=== PATIENT | female | born 1945 | race Caucasian/White ===

== ENCOUNTER 2016-02-22 22:14 | Emergency (ER) | payer OTHER ==
[2016-02-23] MEDS ORDERED: ACETAMINOPH W/CODEINE #3 TAB UD As Ordered ONE ×2 (00:44→01:36)
--- NOTE | 2016-02-23 01:43 | EDDOCDS ---
Nurse's Notes [facility] Name: Nataliya Davis Age: 70 yrs Sex: Female : 1945 Arrival Date: 02/22/2016 Time: 22:14 Bed I4 / M4 Private MD: Sherwin Bermudez A. Diagnosis: Low back pain Presentation: 02/21 22:23 Presenting complaint: Patient states: back pain - no relief tonight with her prescribed pml meds. no new injury - reports awaiting MRI and in PT at ortho. Acute neurological deficits are not present. Mechanism of Injury: No Mechanism of Injury. Adult Sepsis Screening: The patient does not have new or worsening altered mentation. Patient's respiratory rate is less than 22. Patient has a qSOFA score of. Suicide/Homicide risk assessment- the patient denies having any suicidal and/or homicidal ideations and does not present with any other emotional, behavioral or mental health complaints. Status: Patient is not a auto service mechanic or dependent. Transition of care: patient was not received from another setting of care. 22:23 Method Of Arrival: Walkin/Carried/Asstd [facility] 22:31 Adult Sepsis Screening: Systolic blood pressure is less than or equal to 100 (1 point). pml Patient has a qSOFA score of 1- Negative Sepsis Screen. 22:31 Acuity: ADAIR Level 4 pml Triage Assessment: 22:28 General: Appears in no apparent distress, comfortable, Behavior is appropriate for age, pml cooperative. Pain: Pain currently is 0 out of 10 on a pain scale. At worst was 10 out of 10 on a pain scale. Quality of pain is described as spasms. Musculoskeletal: Circulation, motion, and sensation intact. Historical: - Allergies: PENICILLINS; - Home Meds: 1. Klor-Con 20 mEq oral pack daily 2. Vitamin D3 5,000 unit oral tab daily 3. levothyroxine 125 mcg oral tab 1 tab once daily 4. Lasix 40 mg oral tab 1 tab once daily 5. methotrexate sodium 2.5 mg oral tab 2 tabs Monday and 3 tabs Monday 6. folic acid 1 mg oral tab once daily 7. allopurinol 300 mg oral tab 0.5 tab once daily 8. verapamil 240 mg oral C24P 1 cap once daily 9. lisinopril 20 mg oral tab 1 tab once daily 10. tizanidine 4 mg oral cap nightly 11. tramadol 50 mg Oral tab 1 tab every 4-6 hours - PMHx: Gout; Hypertension; Hypothyroidism; Rheumatoid Arthritis; - PSHx: Hysterectomy; Nephrectomy- Left; - Social history: Smoking status: Patient states was never smoker of tobacco. No barriers to communication noted, The patient speaks fluent Kazakh, Speaks appropriately for age. - Family history: Not pertinent. - : The pt / caregiver states he / she is not on anticoagulants. Home medication list is obtained from the patient. - Exposure Risk Screening:: None identified. Screenin/17 01:41 Screening information is obtained from the patient. Fall risk: At risk due to age, gait jmb disturbance. Assistance ADL's: requires no assistance with activities of daily living. Abuse/DV Screen: The patient / caregiver reports he/she is: not in a situation that causes fear, pain or injury. Nutritional screening: No deficits noted. Advance Directives: Currently, there is no health care proxy. There is no active DNR order. There is no living will. There is no Power of Chute Worker. home support is adequate. Assessment: 01:41 General: Patient instructed on discharge instructions. Patient asked if there were any jmb questions regarding discharge, patient stated no. Patient signed discharge instructions. Patient discharged in stable condition. . Vital Signs: 02/21 22:16 BP 86 / 46; Pulse 59; Resp 18 S; Temp 97.3(O); Pulse Ox 99% on R/A; Weight 90.72 kg gr2 (R); Height 5 ft. 4 in. (162.56 cm) (R); Pain 8/10; 22:27 BP 100 / 59 RA Sitting (man/reg); ar3 02/22 00:48 Pain 0/10; cp1 01:37 BP 108 / 55; Pulse 65; Resp 18; Temp 98.0(TE); Pulse Ox 98% on R/A; Pain 0/10; kb5 02/21 22:16 Body Mass Index 34.33 (90.72 kg, 162.56 cm) gr2 Vitals: 02/21 22:16 Log In Time: February 22, 2016 at 22:16. RN notified that patient meets Red Flag gr2 criteria. ED Course: 22:16 Patient visited by Dyoln Bardales. gr2 22:16 Sherwin Bermudez is Private Physician. gr2 22:16 Patient moved to Waiting gr2 22:24 Patient visited by Dylon Bardales. gr2 22:24 Patient moved to Pre RCE gr2 22:27 Patient visited by Charlotte Rod PCA. ar3 22:29 Patient visited by Loraine Nguyen RN. pml 22:31 Triage Initiated pml 02/22 00:10 Patient visited by Aracely Lackey LPN. cp1 00:10 Patient moved to I4 / M4 cp1 00:35 Cam Roa RPA-C is PHCP. ck7 00:35 Brice Mackenzie DO is Attending Physician. ck7 00:35 Patient visited by Cam Roa RPA-C. ck7 01:09 Patient visited by Cam Roa RPA-C. ck7 01:32 Sherwin Bermudez is Referral Physician. ck7 01:39 Patient visited by Madhu Nascimento PCA. kb5 01:41 The patient / caregiver is instructed regarding the plan of care and ED course. jmb 01:41 No IV's were initiated during this patient's visit. No procedures done that require jmb assistance. Administered Medications: 00:48 Drug: Acetaminophen-Codeine 2 tabs [acetaminophen 300 mg-codeine 30 mg tablet (2 tabs)] cp1 Route: PO; 01:41 Drug: Acetaminophen-Codeine, 4 pack- 1 packets [acetaminophen 300 mg-codeine 30 mg jmb tablet (1 tabs)] {Co-Signature: cp1 (Aracely Lackey LPN).} Route: PO; Order Results: There are currently no results for this order. Outcome: 01:32 Discharge ordered by Provider. ck7 01:41 Discharge Assessment: Patient awake, alert and oriented x 3. No cognitive and/or jmb functional deficits noted. Patient verbalized understanding of disposition instructions. Patient awake and alert. obeys commands, Oriented to person, place and time. Patient verbalized understanding of disposition instructions. Patient has no functional deficits. patient administered narcotics - yes. Pt provided with safe discharge. The following High Risk Discharge criteria are identified: None. Discharged to home ambulatory, with family. Condition: stable. Discharge instructions given to patient, Instructed on discharge instructions, follow up and referral plans. medication usage, Demonstrated understanding of instructions, medications, Pt was receptive of discharge instructions/ teaching. Prescriptions given X 1. No special radiology studies were completed. Property sent home with patient. 01:43 Patient left the ED. shayna Signatures: Madhu Nascimento, COMMUNICATIONS CONSULTANT COMMUNICATIONS CONSULTANT kb5 Charlotte Rod, COMMUNICATIONS CONSULTANT COMMUNICATIONS CONSULTANT ar3 Aracely Lackey LPN LPN cp1 Loraine Nguyen RN RN pml Kwaczala, Christopher, RPA-C RPA-Cck7 Dylon Bardales gr2 Moody Marino RN RN jmb Cheryl Perkins LPN cp1 MTDD
--- NOTE | 2016-02-23 01:43 | EDDOCDS ---
Physician Documentation [facility] Name: Nataliya Davis Age: 70 yrs Sex: Female : 1945 Arrival Date: 02/22/2016 Time: 22:14 Bed I4 / M4 Private MD: Sherwin Bermudez A. Disposition: 02/23/16 01:32 Discharged to Home/Self Care. Impression: Low back pain. - Condition is Stable. - Discharge Instructions: Back Pain, Adult. - Prescriptions for Tylenol- Codeine #3 300-30 mg Oral Tablet - take 2 tablets by ORAL route every 6 hours As needed MDD: 4 tabs; 10 tablet. - Medication Reconciliation, Local Pharmacy Hours form. - Follow up: Sherwin Bermudez; When: Tomorrow; Reason: Recheck today's complaints, Continuance of care. - Problem is new. - Symptoms have improved. - Notes: DO NOT TAKE TYLENOL WITH CODIENE WHILE USING TRAMADOL, USE ONE OR THE OTHER, FOLLOW UP WITH YOUR DOCTOR TOMORROW Historical: - Allergies: PENICILLINS; - Home Meds: 1. Klor-Con 20 mEq oral pack daily 2. Vitamin D3 5,000 unit oral tab daily 3. levothyroxine 125 mcg oral tab 1 tab once daily 4. Lasix 40 mg oral tab 1 tab once daily 5. methotrexate sodium 2.5 mg oral tab 2 tabs Monday and 3 tabs Monday 6. folic acid 1 mg oral tab once daily 7. allopurinol 300 mg oral tab 0.5 tab once daily 8. verapamil 240 mg oral C24P 1 cap once daily 9. lisinopril 20 mg oral tab 1 tab once daily 10. tizanidine 4 mg oral cap nightly 11. tramadol 50 mg Oral tab 1 tab every 4-6 hours - PMHx: Gout; Hypertension; Hypothyroidism; Rheumatoid Arthritis; - PSHx: Hysterectomy; Nephrectomy- Left; - Social history: Smoking status: Patient states was never smoker of tobacco. No barriers to communication noted, The patient speaks fluent Tajik, Speaks appropriately for age. - Family history: Not pertinent. - : The pt / caregiver states he / she is not on anticoagulants. Home medication list is obtained from the patient. - Exposure Risk Screening:: None identified. Vital Signs: 02/21 22:16 BP 86 / 46; Pulse 59; Resp 18 S; Temp 97.3(O); Pulse Ox 99% on R/A; Weight 90.72 kg / gr2 200 lbs (R); Height 5 ft. 4 in. (162.56 cm) (R); Pain 8/10; 22:27 BP 100 / 59 RA Sitting (man/reg); ar3 02/22 00:48 Pain 0/10; cp1 01:37 BP 108 / 55; Pulse 65; Resp 18; Temp 98.0(TE); Pulse Ox 98% on R/A; Pain 0/10; kb5 02/21 22:16 Body Mass Index 34.33 (90.72 kg, 162.56 cm) gr2 MDM: 00:41 Acetaminophen-Codeine 300 mg-30 mg 2 tabs PO once ordered. ck7 00:48 Financial registration complete. hs2 01:33 Acetaminophen-Codeine, 4 pack- 300 mg-30 mg 1 packets PO once; Dispense with patient. ck7 Take per package instructions. ordered. Administered Medications: 00:48 Drug: Acetaminophen-Codeine 2 tabs [acetaminophen 300 mg-codeine 30 mg tablet (2 tabs)] cp1 Route: PO; 01:41 Drug: Acetaminophen-Codeine, 4 pack- 1 packets [acetaminophen 300 mg-codeine 30 mg jmb tablet (1 tabs)] {Co-Signature: cp1 (Aracely Lackey WELL BLOWER).} Route: PO; Signatures: Loraine Nguyen,Cam Sandoval RN, RPA-C RPA-Cck7 Moody Marino RN RN jmb Stanton, Hillary, Reg Reg hs2 Lackey Aracely WELL BLOWER cp1 Aracely Lackey WELL BLOWER cp1 MTDD
--- NOTE | 2016-02-25 02:44 | EDDOCDS ---
Physician Documentation [facility] Name: Nataliya Davis Age: 70 yrs Sex: Female : 1945 Arrival Date: 02/22/2016 Time: 22:14 Bed I4 / M4 Private MD: Sherwin Bermudez A. Disposition: 02/23/16 01:32 Discharged to Home/Self Care. Impression: Low back pain. - Condition is Stable. - Discharge Instructions: Back Pain, Adult. - Prescriptions for Tylenol- Codeine #3 300-30 mg Oral Tablet - take 2 tablets by ORAL route every 6 hours As needed MDD: 4 tabs; 10 tablet. - Medication Reconciliation, Local Pharmacy Hours form. - Follow up: Sherwin Bermudez; When: Tomorrow; Reason: Recheck today's complaints, Continuance of care. - Problem is new. - Symptoms have improved. - Notes: DO NOT TAKE TYLENOL WITH CODIENE WHILE USING TRAMADOL, USE ONE OR THE OTHER, FOLLOW UP WITH YOUR DOCTOR TOMORROW Historical: - Allergies: PENICILLINS; - Home Meds: 1. Klor-Con 20 mEq oral pack daily 2. Vitamin D3 5,000 unit oral tab daily 3. levothyroxine 125 mcg oral tab 1 tab once daily 4. Lasix 40 mg oral tab 1 tab once daily 5. methotrexate sodium 2.5 mg oral tab 2 tabs Monday and 3 tabs Monday 6. folic acid 1 mg oral tab once daily 7. allopurinol 300 mg oral tab 0.5 tab once daily 8. verapamil 240 mg oral C24P 1 cap once daily 9. lisinopril 20 mg oral tab 1 tab once daily 10. tizanidine 4 mg oral cap nightly 11. tramadol 50 mg Oral tab 1 tab every 4-6 hours - PMHx: Gout; Hypertension; Hypothyroidism; Rheumatoid Arthritis; - PSHx: Hysterectomy; Nephrectomy- Left; - Social history: Smoking status: Patient states was never smoker of tobacco. No barriers to communication noted, The patient speaks fluent Romanian, Speaks appropriately for age. - Family history: Not pertinent. - : The pt / caregiver states he / she is not on anticoagulants. Home medication list is obtained from the patient. - Exposure Risk Screening:: None identified. Vital Signs: 02/21 22:16 BP 86 / 46; Pulse 59; Resp 18 S; Temp 97.3(O); Pulse Ox 99% on R/A; Weight 90.72 kg / gr2 200 lbs (R); Height 5 ft. 4 in. (162.56 cm) (R); Pain 8/10; 22:27 BP 100 / 59 RA Sitting (man/reg); ar3 02/22 00:48 Pain 0/10; cp1 01:37 BP 108 / 55; Pulse 65; Resp 18; Temp 98.0(TE); Pulse Ox 98% on R/A; Pain 0/10; kb5 02/21 22:16 Body Mass Index 34.33 (90.72 kg, 162.56 cm) gr2 MDM: 00:41 Acetaminophen-Codeine 300 mg-30 mg 2 tabs PO once ordered. ck7 00:48 Financial registration complete. hs2 01:33 Acetaminophen-Codeine, 4 pack- 300 mg-30 mg 1 packets PO once; Dispense with patient. ck7 Take per package instructions. ordered. 04:31 [facility] Payment Agreement was scanned into [employer] and attached to record. hs2 10:58 T-Sheet-- Draft Copy was scanned into [employer] and attached to record. gb Administered Medications: 00:48 Drug: Acetaminophen-Codeine 2 tabs [acetaminophen 300 mg-codeine 30 mg tablet (2 tabs)] cp1 Route: PO; 01:41 Drug: Acetaminophen-Codeine, 4 pack- 1 packets [acetaminophen 300 mg-codeine 30 mg jmb tablet (1 tabs)] {Co-Signature: cp1 (Aracely Lackey LPN).} Route: PO; Signatures: Ania Giron, Reg Reg gb Loraine Nguyen,RN Cam Sandoval, RPA-C RPA-Cck7 Moody Marino RN RN jmb Stanton, Hillary, Reg Reg hs2 Aracely Lackey LPN cp1 Aracely Lackey LPN cp1 The chart was reviewed and I authenticate all verbal orders and agree with the evaluation and treatment provided.Attachments: 04:31 [facility] Payment Agreement hs2 10:58 T-Sheet-- Draft Copy gb Chart Complete MTDD
--- NOTE | 2016-02-25 02:44 | EDDOCDS ---
Physician Documentation [facility] Name: Nataliya Davis Age: 70 yrs Sex: Female : 1945 Arrival Date: 02/22/2016 Time: 22:14 Bed I4 / M4 Private MD: Sherwin Bermudez A. Disposition: 02/23/16 01:32 Discharged to Home/Self Care. Impression: Low back pain. - Condition is Stable. - Discharge Instructions: Back Pain, Adult. - Prescriptions for Tylenol- Codeine #3 300-30 mg Oral Tablet - take 2 tablets by ORAL route every 6 hours As needed MDD: 4 tabs; 10 tablet. - Medication Reconciliation, Local Pharmacy Hours form. - Follow up: Sherwin Bermudez; When: Tomorrow; Reason: Recheck today's complaints, Continuance of care. - Problem is new. - Symptoms have improved. - Notes: DO NOT TAKE TYLENOL WITH CODIENE WHILE USING TRAMADOL, USE ONE OR THE OTHER, FOLLOW UP WITH YOUR DOCTOR TOMORROW Historical: - Allergies: PENICILLINS; - Home Meds: 1. Klor-Con 20 mEq oral pack daily 2. Vitamin D3 5,000 unit oral tab daily 3. levothyroxine 125 mcg oral tab 1 tab once daily 4. Lasix 40 mg oral tab 1 tab once daily 5. methotrexate sodium 2.5 mg oral tab 2 tabs Monday and 3 tabs Monday 6. folic acid 1 mg oral tab once daily 7. allopurinol 300 mg oral tab 0.5 tab once daily 8. verapamil 240 mg oral C24P 1 cap once daily 9. lisinopril 20 mg oral tab 1 tab once daily 10. tizanidine 4 mg oral cap nightly 11. tramadol 50 mg Oral tab 1 tab every 4-6 hours - PMHx: Gout; Hypertension; Hypothyroidism; Rheumatoid Arthritis; - PSHx: Hysterectomy; Nephrectomy- Left; - Social history: Smoking status: Patient states was never smoker of tobacco. No barriers to communication noted, The patient speaks fluent Amharic, Speaks appropriately for age. - Family history: Not pertinent. - : The pt / caregiver states he / she is not on anticoagulants. Home medication list is obtained from the patient. - Exposure Risk Screening:: None identified. Vital Signs: 02/21 22:16 BP 86 / 46; Pulse 59; Resp 18 S; Temp 97.3(O); Pulse Ox 99% on R/A; Weight 90.72 kg / gr2 200 lbs (R); Height 5 ft. 4 in. (162.56 cm) (R); Pain 8/10; 22:27 BP 100 / 59 RA Sitting (man/reg); ar3 02/22 00:48 Pain 0/10; cp1 01:37 BP 108 / 55; Pulse 65; Resp 18; Temp 98.0(TE); Pulse Ox 98% on R/A; Pain 0/10; kb5 02/21 22:16 Body Mass Index 34.33 (90.72 kg, 162.56 cm) gr2 MDM: 00:41 Acetaminophen-Codeine 300 mg-30 mg 2 tabs PO once ordered. ck7 00:48 Financial registration complete. hs2 01:33 Acetaminophen-Codeine, 4 pack- 300 mg-30 mg 1 packets PO once; Dispense with patient. ck7 Take per package instructions. ordered. 04:31 [facility] Payment Agreement was scanned into [employer] and attached to record. hs2 10:58 T-Sheet-- Draft Copy was scanned into [employer] and attached to record. gb Administered Medications: 00:48 Drug: Acetaminophen-Codeine 2 tabs [acetaminophen 300 mg-codeine 30 mg tablet (2 tabs)] cp1 Route: PO; 01:41 Drug: Acetaminophen-Codeine, 4 pack- 1 packets [acetaminophen 300 mg-codeine 30 mg jmb tablet (1 tabs)] {Co-Signature: cp1 (Aracely Lackey LPN).} Route: PO; Signatures: Ania Giron, Reg Reg gb Loraine Nguyen,RN Cam Sandoval, RPA-C RPA-Cck7 Moody Marino RN RN jmb Stanton, Hillary, Reg Reg hs2 Aracely Lackey LPN cp1 Aracely Lackey LPN cp1 The chart was reviewed and I authenticate all verbal orders and agree with the evaluation and treatment provided.Attachments: 04:31 [facility] Payment Agreement hs2 10:58 T-Sheet-- Draft Copy gb Chart Complete MTDD
--- NOTE | 2016-02-25 02:44 | EDDOCDS ---
Nurse's Notes [facility] Name: Nataliya Davis Age: 70 yrs Sex: Female : 1945 Arrival Date: 02/22/2016 Time: 22:14 Bed I4 / M4 Private MD: Sherwin Bermudez A. Diagnosis: Low back pain Presentation: 02/21 22:23 Presenting complaint: Patient states: back pain - no relief tonight with her prescribed pml meds. no new injury - reports awaiting MRI and in PT at ortho. Acute neurological deficits are not present. Mechanism of Injury: No Mechanism of Injury. Adult Sepsis Screening: The patient does not have new or worsening altered mentation. Patient's respiratory rate is less than 22. Patient has a qSOFA score of. Suicide/Homicide risk assessment- the patient denies having any suicidal and/or homicidal ideations and does not present with any other emotional, behavioral or mental health complaints. Status: Patient is not a technical service engineer or dependent. Transition of care: patient was not received from another setting of care. 22:23 Method Of Arrival: Walkin/Carried/Asstd [facility] 22:31 Adult Sepsis Screening: Systolic blood pressure is less than or equal to 100 (1 point). pml Patient has a qSOFA score of 1- Negative Sepsis Screen. 22:31 Acuity: ADAIR Level 4 pml Triage Assessment: 22:28 General: Appears in no apparent distress, comfortable, Behavior is appropriate for age, pml cooperative. Pain: Pain currently is 0 out of 10 on a pain scale. At worst was 10 out of 10 on a pain scale. Quality of pain is described as spasms. Musculoskeletal: Circulation, motion, and sensation intact. Historical: - Allergies: PENICILLINS; - Home Meds: 1. Klor-Con 20 mEq oral pack daily 2. Vitamin D3 5,000 unit oral tab daily 3. levothyroxine 125 mcg oral tab 1 tab once daily 4. Lasix 40 mg oral tab 1 tab once daily 5. methotrexate sodium 2.5 mg oral tab 2 tabs Monday and 3 tabs Monday 6. folic acid 1 mg oral tab once daily 7. allopurinol 300 mg oral tab 0.5 tab once daily 8. verapamil 240 mg oral C24P 1 cap once daily 9. lisinopril 20 mg oral tab 1 tab once daily 10. tizanidine 4 mg oral cap nightly 11. tramadol 50 mg Oral tab 1 tab every 4-6 hours - PMHx: Gout; Hypertension; Hypothyroidism; Rheumatoid Arthritis; - PSHx: Hysterectomy; Nephrectomy- Left; - Social history: Smoking status: Patient states was never smoker of tobacco. No barriers to communication noted, The patient speaks fluent Japanese, Speaks appropriately for age. - Family history: Not pertinent. - : The pt / caregiver states he / she is not on anticoagulants. Home medication list is obtained from the patient. - Exposure Risk Screening:: None identified. Screenin/17 01:41 Screening information is obtained from the patient. Fall risk: At risk due to age, gait jmb disturbance. Assistance ADL's: requires no assistance with activities of daily living. Abuse/DV Screen: The patient / caregiver reports he/she is: not in a situation that causes fear, pain or injury. Nutritional screening: No deficits noted. Advance Directives: Currently, there is no health care proxy. There is no active DNR order. There is no living will. There is no Power of Service Plumber. home support is adequate. Assessment: 01:41 General: Patient instructed on discharge instructions. Patient asked if there were any jmb questions regarding discharge, patient stated no. Patient signed discharge instructions. Patient discharged in stable condition. . Vital Signs: 02/21 22:16 BP 86 / 46; Pulse 59; Resp 18 S; Temp 97.3(O); Pulse Ox 99% on R/A; Weight 90.72 kg gr2 (R); Height 5 ft. 4 in. (162.56 cm) (R); Pain 8/10; 22:27 BP 100 / 59 RA Sitting (man/reg); ar3 02/22 00:48 Pain 0/10; cp1 01:37 BP 108 / 55; Pulse 65; Resp 18; Temp 98.0(TE); Pulse Ox 98% on R/A; Pain 0/10; kb5 02/21 22:16 Body Mass Index 34.33 (90.72 kg, 162.56 cm) gr2 Vitals: 02/21 22:16 Log In Time: February 22, 2016 at 22:16. RN notified that patient meets Red Flag gr2 criteria. ED Course: 22:16 Patient visited by Dylon Bardales. gr2 22:16 Sherwin Bermudez is Private Physician. gr2 22:16 Patient moved to Waiting gr2 22:24 Patient visited by Dylon Bardales. gr2 22:24 Patient moved to Pre RCE gr2 22:27 Patient visited by Charlotte Rod PCA. ar3 22:29 Patient visited by Loraine Nguyen RN. pml 22:31 Triage Initiated pml 02/22 00:10 Patient visited by Aracely Lackey LPN. cp1 00:10 Patient moved to I4 / M4 cp1 00:35 Cam Roa RPA-C is PHCP. ck7 00:35 Brice Mackenzie DO is Attending Physician. ck7 00:35 Patient visited by Cam Roa RPA-C. ck7 01:09 Patient visited by Cam Roa RPA-C. ck7 01:32 Sherwin Bermudez is Referral Physician. ck7 01:39 Patient visited by Madhu Nascimento PCA. kb5 01:41 The patient / caregiver is instructed regarding the plan of care and ED course. jmb 01:41 No IV's were initiated during this patient's visit. No procedures done that require jmb assistance. 04:31 [facility] Payment Agreement was scanned into [employer] and attached to record. hs2 10:58 T-Sheet-- Draft Copy was scanned into [employer] and attached to record. gb Administered Medications: 00:48 Drug: Acetaminophen-Codeine 2 tabs [acetaminophen 300 mg-codeine 30 mg tablet (2 tabs)] cp1 Route: PO; 01:41 Drug: Acetaminophen-Codeine, 4 pack- 1 packets [acetaminophen 300 mg-codeine 30 mg jmb tablet (1 tabs)] {Co-Signature: cp1 (Aracely Lackey LPN).} Route: PO; Order Results: There are currently no results for this order. Outcome: 01:32 Discharge ordered by Provider. ck7 01:41 Discharge Assessment: Patient awake, alert and oriented x 3. No cognitive and/or jmb functional deficits noted. Patient verbalized understanding of disposition instructions. Patient awake and alert. obeys commands, Oriented to person, place and time. Patient verbalized understanding of disposition instructions. Patient has no functional deficits. patient administered narcotics - yes. Pt provided with safe discharge. The following High Risk Discharge criteria are identified: None. Discharged to home ambulatory, with family. Condition: stable. Discharge instructions given to patient, Instructed on discharge instructions, follow up and referral plans. medication usage, Demonstrated understanding of instructions, medications, Pt was receptive of discharge instructions/ teaching. Prescriptions given X 1. No special radiology studies were completed. Property sent home with patient. 01:43 Patient left the ED. shayna Signatures: Ania Giron, Reg Reg gb Pily, Madhu, PRINT OPERATOR PRINT OPERATOR kb5 Charlotte Rod, PRINT OPERATOR PRINT OPERATOR ar3 Aracely Lackey LPN LPN cp1 Loraine Nguyen RN RN pml Kwaczala, Christopher, RPA-C RPA-Cck7 Dylon Bardales gr2 Moody Marino RN RN jmb Stanton, Hillary, Reg Reg hs2 Aracely Lackey LPN cp1 Chart Complete MTDD
== END 2016-02-23 01:43 | disposition home or self-care (01) ==
LOC: M ED 22:14
DX: M54.5 Low back pain (principal); M06.9 Rheumatoid arthritis, unspecified; I10 Essential (primary) hypertension; M10.9 Gout, unspecified; E03.9 Hypothyroidism, unspecified; Z90.89 Acquired absence of other organs; Z90.5 Acquired absence of kidney; Z79.899 Other long term (current) drug therapy; Z88.0 Allergy status to penicillin

== ENCOUNTER → 2016-05-13 | Outpatient (CLI) | payer OTHER ==
[2016-05-13 16:38] LABS: INR 1.03
== END ==
LOC: M LAB 15:23
PROVIDERS: ATTEND Physical Medicine & Rehabilitation
DX: M48.06 Spinal stenosis, lumbar region (principal)

== ENCOUNTER 2018-06-23 11:01 | Inpatient (IN) | payer BC, MEDICARE ==
[~2018-06-23] VITALS: Ht 162.6 cm; Wt 86.1 kg
[2018-06-23] MEDS ORDERED: POTA10TA16 PO (11:39)
[2018-06-23] MEDS ORDERED: DULO1CAP2 PO (11:39)
[2018-06-23] MEDS ORDERED: VERA240T3 PO (11:39)
[2018-06-23] MEDS ORDERED: LISI-538 PO (11:39)
[2018-06-23] MEDS ORDERED: CARB25TA9 PO (11:39)
[2018-06-23] MEDS ORDERED: ALLOPOW4 PO (11:39)
[2018-06-23] MEDS ORDERED: FURO40TA2 PO (11:39)
[2018-06-23] MEDS ORDERED: LEVO112T2 PO (11:39)
[2018-06-23] MEDS ORDERED: LEVO125T4 PO (11:39)
--- NOTE | 2018-06-23 12:18 | REP ---
REASON: Syncopal episode. COMPARISON: None. The ventricles and sulci are within normal limits. There is no shift of the midline structures. There are no extra-axial fluid collections. Scattered areas of decreased density are seen throughout the deep cerebral white matter. Of note, there is an area of decreased density seen in the left posterior occipital lobe abutting the posterior horn of the left lateral ventricle. There is no skull fracture. The imaged paranasal sinuses and mastoid air cells are clear. IMPRESSION: 1. 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 This needs to be correlated clinically. 2. Age related changes. 3. Other findings as described above. Electronically Signed by Alfonso Price DO 06/23/2018 12:26 P
[2018-06-23 12:20] LABS: BASO % 0.4 % (0.0-1.0); EOS % 0.4 % (0.0-3.0); HEMATOCRIT 31.2 % (36.0-47.0); HEMOGLOBIN 10.8 g/dl (12.0-15.5); LYMPH % 8.3 % (24.0-44.0); MEAN CORPUSCULAR HEMOGLOBIN 34.8 pg (27.0-33.0); MEAN CORPUSCULAR HGB CONC 34.6 g/dl (32.0-36.5); MEAN CORPUSCULAR VOLUME 100.6 fl (80.0-96.0); MONO # 0.3 10^3/uL (0.0-0.8); MONO % 10.2 % (0.0-5.0); NEUTROPHILS # 2.1 10^3/uL (1.8-7.7); NEUTROPHILS % 79.2 % (36.0-66.0); PLATELET COUNT, AUTOMATED 234 10^3/uL (150-450); WHITE BLOOD COUNT 2.7 10^3/uL (4.0-10.0)
--- NOTE | 2018-06-23 12:20 | REP ---
REASON: Pain in the neck after trauma. COMPARISON: None. The facet joints are well aligned bilaterally. There is anterior and posterior fusion from C4-C6 inclusive with posterior fusion at C2-3 and near complete anterior fusion of C3 on C4. Vertebral body height and alignment is within normal limits. There is no evidence of an acute fracture. There is no abnormal paraspinal soft tissue swelling. The afore mentioned posterior heavy PLL calcifications do encroach the neural canal. There is a suspect element of cord compression difficult to evaluate by CT. IMPRESSION: No evidence of an acute fracture. Chronic changes as described above. Electronically Signed by Alfonso Price DO 06/23/2018 12:26 P
--- NOTE | 2018-06-23 12:24 | REP ---
BILATERAL TIBIA AND FIBULA: HISTORY: Pain after trauma. COMPARISON: None. The bones are demineralized. Chronic changes seen involving the knee and ankle. There is no evidence of an acute fracture. Electronically Signed by Alfonso Price DO 06/23/2018 12:26 P
--- NOTE | 2018-06-23 12:27 | REP ---
HISTORY: Pain after trauma. COMPARISON: None. Advanced degenerative change is seen involving each hip with asymmetric hip joint space narrowing and prominent acetabular marginal osteophytosis. There is no buttressing, fracture or dislocation. Chronic change seen involving the imaged spine and sacroiliac joints. IMPRESSION: Chronic changes. No fracture. Electronically Signed by Alfonso Price DO 06/23/2018 12:32 P
[2018-06-23 12:29] LABS: INR 1.05; PARTIAL THROMBOPLASTIN TIME 25.2 SECONDS (25.4-37.6); PROTHROMBIN TIME 13.8 SECONDS (12.1-14.4)
[2018-06-23] MEDS ORDERED: D 50CAP PO (12:30)
[2018-06-23] MEDS ORDERED: METH2.5T48 PO (12:30)
[2018-06-23] MEDS ORDERED: ALLO100T PO (12:30)
[2018-06-23] MEDS ORDERED: ACET-908 PO (12:30)
--- NOTE | 2018-06-23 12:38 | REP ---
REASON FOR EXAM: Trauma. Latest prior for comparison is 06/23/2009. Subtle opacities have developed in the right lower lobe since the last exam. The lung chavira are otherwise unchanged. The pleural angles are sharp and the heart is not enlarged. The osseous structures are stable and intact. IMPRESSION: Subtle right lower lobe opacities have developed since the last exam. Since the last exam is 9 years ago, I cannot rule out the possibility of chronic change versus early pneumonia. Correlate clinically. Electronically Signed by Alfonso Price DO 06/23/2018 12:40 P
[2018-06-23 12:45] LABS: LYMPH # 0.2 10^3/uL (1.5-4.5)
[2018-06-23 12:47] LABS: BLOOD UREA NITROGEN 22 MG/DL (7-18); CALCIUM LEVEL 8.4 MG/DL (8.8-10.2); CARBON DIOXIDE LEVEL 26 MEQ/L (21-32); CHLORIDE LEVEL 93 MEQ/L (98-107); CK-MB VALUE MASS < 1.0 NG/ML (<3.6); CPK CREATINE PHOSPHOKINASE 36 U/L (26-192); CREATININE FOR GFR 1.53 MG/DL (0.55-1.30); GLOMERULAR FILTRATION RATE 35.6 (>39); GLUCOSE, FASTING 90 MG/DL (70-100); MAGNESIUM LEVEL 1.7 MG/DL (1.8-2.4); MB/CK RELATIVE INDEX 2.78 (< OR =4); POTASSIUM SERUM 4.2 MEQ/L (3.5-5.1); SODIUM LEVEL 129 MEQ/L (136-145); THYROID STIMULATING HORMONE 0.105 uIU/ML (0.358-3.740); TROPONIN I < 0.02 NG/ML (< 0.10)
[2018-06-23] MEDS ORDERED: LevoFLOXacin IV 750 MG in APPROPRIATE DILUENT 1 EA IV ONE (13:00)
[2018-06-23] MEDS ORDERED: ASPIRIN 81 MG CHEW TABLET PO ONE (14:15)
[2018-06-23] MEDS ORDERED: LevoFLOXacin IV 750 MG in APPROPRIATE DILUENT 1 EA IV SCH (14:30)
[2018-06-23] MEDS: NS 1,000 ML IV SCH (14:30)
[2018-06-23 14:36] LABS: CHOLESTEROL LEVEL 132 MG/DL (<200); CHOLESTEROL RISK RATIO 2.693 (<5); HDL CHOLESTEROL 49 MG/DL (>40); LDL CHOLESTEROL 63 MG/DL (<100); NON-HDL-C 83 MG/DL; TRIGLYCERIDES LEVEL 100 MG/DL (<150)
--- NOTE | 2018-06-23 14:42 | HPEPDOC ---
General Date of Admission June 23, 2018 at 13:59 Chief Complaint The patient is a 73-year-old female who presented to the ER after she was found down at home History of Present Illness Patient is a 73-year-old female with a PMHx of HTN, Hypothyroidism, Gout, and a recent suggested diagnosis of Parkinsons. Patient has presented to the emergency room after she was found down at home. It is unclear when the patient had fallen in how long she was down family was present at the bedside and have indicated that the last day. Spoke with her was yesterday evening at 5:30 on the phone. At that time, she was okay, but reported some feeling of fatigue. Patient is a poor historian and cannot provide any significant detail about the events that happened leading up to her falling at home. Patient son and cousin were present at the bedside to provide additional details. Family has noted that she has been falling several times. Theyve indicated that shes fallen at least 5 times over 2 weeks and is been experiencing some level of confusion over the same time period. Patient was seen by neurology on . She was scheduled for imaging, however, has not yet completed this. . She was also prescribed carbidopa / levodopa for symptoms that were suggestive of Parkinsons. Currently, patient does not experience any chest pain. She does make note of some shortness of breath with ambulation. Reports some cough, however, it has been nonproductive. Has reported palpitations but it was unsure when she ex perienced this. Patient denies headache, nausea, vomiting, abdominal pain, constipation, diarrhea or discomfort with urination. Patient has also reported a weight loss of approximately 20-30 pounds over 1-2 months and has reported a very poor appetite. Home Medications Scheduled Allopurinol (Allopurinol) 100 Mg Tablet, 100 MG PO BID, (Reported) Carbidopa/Levodopa (Carbidopa-Levodopa 25-100 Tab) 1 Each Tablet, 0.5 TAB PO BID, (Reported) 0.5 TAB BID FOR 3 DAYS 1 TAB BID FOR 3 DAYS 1 TAB TID FOR 3 DAYS 1 TAB QID (0800/1200/1600/2000) STARTED 06/21/18 Cholecalciferol (Vitamin D3) (Vitamin D3) 5,000 Unit Capsule, 5,000 UNIT PO DAILY, (Reported) Duloxetine Hcl (Duloxetine HCl) 30 Mg Capsule.dr, 30 MG PO DAILY, (Reported) Furosemide (Furosemide) 40 Mg Tablet, 4 MG PO DAILY, (Reported) Levothyroxine Sodium (Levothyroxine Sodium) 112 Mcg Tablet, 112 MCG PO DAILY, (Reported) Lisinopril (Lisinopril) 20 Mg Tablet, 20 MG PO QHS, (Reported) Methotrexate Sodium (Methotrexate) 2.5 Mg Tablet, 7.5 MG PO 2XW, (Reported) MONDAYS, SATURDAYS, RX WRITTEN FOR 15MG ONCE WEEKLY, PT IS SPLITTING DOSE TO TWICE WEEKLY Potassium Chloride (Potassium Chloride) 10 Meq Tab.er.prt, 10 MEQ PO BID, (Reported) Verapamil Hcl (Verapamil ER) 240 Mg Tablet.er, 240 MG PO DAILY, (Reported) Scheduled PRN Acetaminophen (Acetaminophen) 325 Mg Tablet, 650 MG PO Q4H PRN for PAIN, (Reported) Allergies Coded Allergies: Penicillins (Verified Allergy, Unknown, SWELLING, 06/23/18) Past Medical History Medical History HTN, Hypothyroidism, Gout, and a recent suggested diagnosis of Parkinsons Surgical History 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 Review of Systems Other systems [10 point review of systems complete, all negative otherwise stated in HPI] Vital Signs - Vitals: BP [100/68], HR, 99, RR 20, Sat 92% on nasal cannula 1 L, Temp 99.1F - General: Lying in bed, No acute distress, Speaking in full sentences, AAOx3 - HEENT: NC, AT, PERRLA, EOMI - CVS: RRR, +S1S2, - Murmurs / rubs / gallops - Lungs: Fair air entry bilaterally, Clear to auscultation, No wheezing / rales / rhonchi - Abdomen: Soft, Non-distended, Non-tender - Extremities: No lower extremity edema, No calf tenderness - Neuro: 5/5 strength at upper / lower extremities bilaterally, sensation intact bilaterally at arms / legs; CN 2-12 grossly intact - Skin: No visible rashes Laboratory Data Labs 24H Laboratory Tests 2 06/23/18 11:16: Immature Granulocyte % (Auto) 1.5, White Blood Count 2.7L, Red Blood Count 3.10L, Hemoglobin 10.8L, Hematocrit 31.2L, Mean Corpuscular Volume 100.6H, Mean Corpuscular Hemoglobin 34.8H, Mean Corpuscular Hemoglobin Concent 34.6, Red Cell Distribution Width 14.9H, Platelet Count 234, Neutrophils (%) (Auto) 79.2H, Lymphocytes (%) (Auto) 8.3L, Monocytes (%) (Auto) 10.2H, Eosinophils (%) (Auto) 0.4, Basophils (%) (Auto) 0.4, Neutrophils # (Auto) 2.1, Lymphocytes # (Auto) 0. 2L, Monocytes # (Auto) 0.3, Eosinophils # (Auto) 0.0, Basophils # (Auto) 0.0, Nucleated Red Blood Cells % (auto) 0.0, Prothrombin Time 13.8, Prothromb Time International Ratio 1.05, Activated Partial Thromboplast Time 25.2L, Anion Gap 10, Glomerular Filtration Rate 35.6L, Calcium Level 8.4L, Magnesium Level 1.7L, Total Creatine Kinase 36, Creatine Kinase MB < 1.0, Creatine Kinase MB Relative Index 2.78, Troponin I < 0.02, Triglycerides Level 100, LDL Cholesterol 63, Total Cholesterol 132, Non-HDL Cholesterol (LDL + VLDL) 83, Total HDL Cholesterol 49, Cholesterol/HDL Ratio 2.693, Thyroid Stimulating Hormone (TSH) 0.105L, Free Thyroxine 1.90H 06/23/18 11:59: Bedside Glucose (Misc Panel) 92 CBC/BMP Laboratory Tests 06/23/18 11:16 Red Blood Count 3.10 L, Mean Corpuscular Volume 100.6 H, Mean Corpuscular Hemoglobin 34.8 H, Mean Corpuscular Hemoglobin Concent 34.6, Red Cell Distribution Width 14.9 H, Neutrophils (%) (Auto) 79.2 H, Lymphocytes (%) (Auto) 8.3 L, Monocytes (%) (Auto) 10.2 H, Eosinophils (%) (Auto) 0.4, Basophils (%) (Auto) 0.4, Neutrophils # (Auto) 2.1, Lymphocytes # (Auto) 0.2 L, Monocytes # (Auto) 0.3, Eosinophils # (Auto) 0.0, Basophils # (Auto) 0.0 Microbiology Microbiology 06/23/18 Blood Culture, Received Pending 06/23/18 Blood Culture, Received Pending Plan / VTE VTE Prophylaxis Ordered?: Yes Plan Plan Frequent falls / Confusion - possibly 2/2 sub-acute cerebrovascular accident - Patient has presented to the emergency room with complaints of frequent falls over the last 2 weeks associated with confusion - Physical does not reveal any focal neurologic deficits; patient is currently oriented 3 - Family has indicated that she has been expressing confusion about day of the week as an outpatient - CT head 06/23: 1. 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 This needs to be correlated clinically. 2. Age related changes. 3. Other findings as described above. - CT cervical spine 06/23: No evidence of an acute fracture. Chronic changes as described above. - XR pelvis 06/23: Chronic changes. No fracture. - Will order 2-D echocardiogram, Duplex ultrasound of carotids, MRI and MRA of brain - Well continue with neuro checks and telemetry monitoring - s/p ASA 325 in ER; c/w ASA 81 there after - c/w Atorvastatin 80 - lipid panel pending - Neurology has been called on consultation Shortness of breath - possibly 2/2 pneumonia; possibly 2/2 community acquired, possibly 2/2 gram negative source - Patient has been reporting shortness of breath with associated cough, production - Currently, patient remains afebrile and hemodynamically stable - CXR 06/23: Subtle right lower lobe opacities have developed since the last exam. Since the last exam is 9 years ago, I cannot rule out the possibility of chronic change versus early pneumonia. Correlate clinically. - Will get CT chest to evaluate - Will start Levaquin and IV fluid hydration Hyponatremia - likely 2/2 hypovolemic hypotonic etiology - Currently, patient appears to have some signs of hypovolemia - Lab work is also consistent with some acute kidney injury - Will check urine and serum osmolality, urine electrolytes and cortisol - Will start the patient on gentle IV fluid hydration - Will repeat lab work at 6PM Acute kidney injury - Patients baseline creatinine is approximately 1.0 - Will check urine analysis and urine electrolytes - Will hold nephrotoxic medications including diuretics - Start gentle IV hydration with normal saline Leukopenia - Review the patients prior records indicates that shes been experiencing this since at least 2012 - Will continue to monitor Macrocytic anemia - Patients hemoglobin appears to be lower than baseline - Tereso check B12 and folate levels - Continue to monitor Hypomagnesemia - Will supplement Weight loss / poor appetite - Patient will need to get appropriate screening completed HTN - Allow for permissive hypertension - Will hold antihypertensive medications at this time - c/w IV fluid hydration Hypothyroidism - c/w Levothyroxine Gout - c/w Allopurinol Mood disorder - c/w Duloxetine Vitamin D deficiency - c/w supplementation Recent suggested diagnosis of Parkinsons - Will hold Carbidopa / Levodopa at this time DVT prophylaxis - Will start Heparin CHUCHO HERNANDEZ MD June 23, 2018 14:42
[2018-06-23] MEDS ORDERED: MAG SULF 1GM/100ML (MAG RUN) 1 GM in APPROPRIATE DILUENT 1 EA IV ONE (14:45)
--- NOTE | 2018-06-23 15:10 | REP ---
HISTORY: History of stroke. COMPARISON: None. There is a minimal amount of echogenic material seen along the carotid arterial [place], small portions of which cast acoustic shadows consistent with calcific deposition. Right Left CCA systolic 84.5 cm/s 98.4 cm/s CCA diastolic 17.3 cm/s 24.7 cm/s ICA systolic 44.3 cm/s 50.9 cm/s ICA diastolic 16.6 cm/s 15.8 cm/s ICA/CCA ratio 0.58 0.64 Analysis of the spectral tracing shows no evidence of significant spectral broadening. Antegrade flow is seen in both vertebral arteries. IMPRESSION: According to the NASCET consensus criteria, there is less than 50% stenosis of the internal carotid artery bilaterally. Electronically Signed by Alfonso Price DO 06/23/2018 03:40 P
[2018-06-23 15:46] LABS: OSMOLALITY SERUM 270 MOSM/KG (280-301)
[2018-06-23 16:30] VITALS: BP 134/67
[2018-06-23] MEDS: DULoxetine 30 MG CAP (CYMBALTA) PO SCH (17:08)
[2018-06-23] MEDS: ATORVASTATIN 20 MG TAB PO SCH (17:08)
[2018-06-23] MEDS: HEPARIN SOD (PORCINE) 5000 UNITS/ML VIAL SC SCH ×2 (17:08→21:11)
[2018-06-23] MEDS: VITAMIN D 1,000 INTERNATIONAL UNITS TABLET PO SCH (17:09)
--- NOTE | 2018-06-23 17:56 | ECGEPIP ---
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
[2018-06-23 18:55] LABS: CALCIUM LEVEL 8.8 MG/DL (8.8-10.2); CREATININE FOR GFR 1.47 MG/DL (0.55-1.30); GLOMERULAR FILTRATION RATE 37.3 (>39); POTASSIUM SERUM 3.7 MEQ/L (3.5-5.1)
[2018-06-23 20:00] VITALS: BP 100/50
[2018-06-23 20:50] LABS: ALBUMIN 2.5 GM/DL (3.2-5.2); ALT/SGPT 23 U/L (12-78); BILIRUBIN,DIRECT 0.3 MG/DL (0.0-0.2); BILIRUBIN,TOTAL 0.8 MG/DL (0.2-1.0); LIPASE 209 U/L (73-393); TOTAL PROTEIN 5.7 GM/DL (6.4-8.2)
[2018-06-23] MEDS: ALLOPURINOL 100 MG TAB PO SCH (21:11)
[2018-06-23 23:59] VITALS: BP 113/53
[2018-06-24] VITALS (9 sets, daily range): BP systolic 89–141; BP diastolic 50–84
[2018-06-24 00:47] LABS: CALCIUM LEVEL 8.9 MG/DL (8.8-10.2); CREATININE FOR GFR 1.62 MG/DL (0.55-1.30); GLOMERULAR FILTRATION RATE 33.3 (>39); POTASSIUM SERUM 3.6 MEQ/L (3.5-5.1)
[2018-06-24] MEDS: ACETAMINOPHEN TAB 650MG DOSE (2X325MG) PO PRN ×3 (02:15→23:51)
[2018-06-24] MEDS ORDERED: LIDOCAINE 5% (LIDODERM) PATCH TD ONE (03:00)
[2018-06-24] MEDS: NS 1,000 ML IV SCH ×2 (04:11→17:44)
[2018-06-24 05:21] LABS: BASO % 0.3 % (0.0-1.0); EOS # 0.1 10^3/uL (0.0-0.50); EOS % 1.9 % (0.0-3.0); HEMOGLOBIN 9.6 g/dl (12.0-15.5); LYMPH % 6.9 % (24.0-44.0); MEAN CORPUSCULAR HEMOGLOBIN 34.2 pg (27.0-33.0); MEAN CORPUSCULAR HGB CONC 34.3 g/dl (32.0-36.5); MEAN CORPUSCULAR VOLUME 99.6 fl (80.0-96.0); MONO # 0.4 10^3/uL (0.0-0.8); MONO % 13.5 % (0.0-5.0); NEUTROPHILS # 2.4 10^3/uL (1.8-7.7); NEUTROPHILS % 76.5 % (36.0-66.0); PLATELET COUNT, AUTOMATED 220 10^3/uL (150-450); RED BLOOD COUNT 2.81 10^6/uL (4.00-5.40); WHITE BLOOD COUNT 3.2 10^3/uL (4.0-10.0)
[2018-06-24 05:37] LABS: LYMPH # 0.2 10^3/uL (1.5-4.5)
[2018-06-24] MEDS: LEVOTHYROXINE 112MCG TABLET (0.112MG) PO SCH (05:38)
[2018-06-24] MEDS: HEPARIN SOD (PORCINE) 5000 UNITS/ML VIAL SC SCH ×3 (05:38→20:57)
[2018-06-24 05:50] LABS: CALCIUM LEVEL 8.7 MG/DL (8.8-10.2); CREATININE FOR GFR 1.32 MG/DL (0.55-1.30); GLOMERULAR FILTRATION RATE 42.2 (>39); MAGNESIUM LEVEL 1.6 MG/DL (1.8-2.4); POTASSIUM SERUM 3.6 MEQ/L (3.5-5.1)
[2018-06-24] MEDS ORDERED: MAG SULF 1GM/100ML (MAG RUN) 1 GM in APPROPRIATE DILUENT 1 EA IV ONE (06:15)
--- NOTE | 2018-06-24 06:43 | REP ---
HISTORY: Right lower lobe opacity seen on plain film obtained earlier. There are no priors for comparison. The lack of intravenous contrast decreases the sensitivity of the exam. Limited evaluation of the mediastinal and pulmonary caro shows multiple lymph nodes, only one of which in the right paratracheal region is enlarged. There is no gross hilar adenopathy. There are no pleural or pericardial effusions. There is no gross abnormality seen involving the imaged upper abdomen. Evaluation of the imaged osseous structures show chronic spinal degenerative changes. Evaluation of the lung chavira show asymmetric basilar opacities, right much greater than left. There is cylindrical bronchiectasis seen in the lung bases. IMPRESSION: 1. Right lower lobe opacities likely fibrotic and/or subsegmental atelectatic changes. Changes from early pneumonia cannot be completely excluded. 2. Chronic lung field changes with cylindrical bronchiectasis. 3. Mediastinal adenopathy as described above. Electronically Signed by Alfonso Price DO 06/24/2018 09:10 A
[2018-06-24] MEDS: VITAMIN D 1,000 INTERNATIONAL UNITS TABLET PO SCH (08:57)
[2018-06-24] MEDS: ALLOPURINOL 100 MG TAB PO SCH ×2 (08:57→20:56)
[2018-06-24] MEDS: DULoxetine 30 MG CAP (CYMBALTA) PO SCH (08:57)
[2018-06-24] MEDS: ASPIRIN 81 MG ENTERIC TAB PO SCH (08:57)
[2018-06-24 08:58] LABS: CREATININE,RANDOM URINE 54.4 MG/DL; POTASSIUM RANDOM URINE 28.2 MEQ/L
[2018-06-24] MEDS: ATORVASTATIN 20 MG TAB PO SCH (08:58)
[2018-06-24] MEDS ORDERED: NS 500 ML IV ONE ×2 (09:30→10:30)
--- NOTE | 2018-06-24 10:29 | IPNPDOC ---
Text Note Date of Service The patient was seen on 06/24/18. NOTE Subjective: Patient is a 73-year-old female with a PMHx of HTN, Hypothyroidism, Gout, and a recent suggested diagnosis of Parkinsons. Patient has presented to the emergency room after she was found down at home. It is unclear when the patient had fallen in how long she was down family was present at the bedside and have indicated that the last day. Cousin had spoke with her was yesterday evening at 5:30 on the phone. At that time, she was okay, but reported some feeling of fatigue. In the emergency room, patient was found to have imaging consistent with a subacute stroke, as well as possible right lower lobe pneumonia. Patient was admitted to the hospitalist service for further evaluation and treatment. Neurology was called on consultation. Patient was seen and examined at the bedside. Currently, patient reports that she's had difficulty sleeping because of persistent interruptions and noise. . She reports that she is not expressing chest pain or palpitations. Still expresses a minor cough, although no significant shortness of breath. 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 Denies any abdominal pain, diarrhea or discomfort with urination. Objective: Vitals (See below) General: Lying in bed, no acute distress, comfortable, AAOx3 HEENT: NC, AT CVS: RRR, +S1S2 Lungs: Fair air entry b/l, auscultation is without wheezing, rales or rhonchi Abdomen: Soft, nondistended, without tenderness Extremities: No evidence of lower extremity edema, - Calf tenderness Neuro: 5/5 strength at b/l upper / lower extremities bilaterally Assessment and plan: Frequent falls / Confusion - possibly 2/2 sub-acute cerebrovascular accident - Patient has presented to the emergency room with complaints of frequent falls over the last 2 weeks associated with confusion - Physical does not reveal any focal neurologic deficits; patient is currently oriented 3 - Family has indicated that she has been expressing confusion about day [place] as an outpatient - CT head 06/23: 1. Possible age undetermined but likely subacute or chronic le ft occipital lobe infarct. This needs to be correlated clinically. 2. Age related changes. 3. Other findings as described above. - CT cervical spine 06/23: No evidence of an acute fracture. Chronic changes as described above. - XR pelvis 06/23: Chronic changes. No fracture. - Will order 2-D echocardiogram, Duplex ultrasound of carotids, MRI and MRA of brain - c/w neuro checks and telemetry monitoring - s/p ASA 325 in ER; c/w ASA 81 there after - c/w Atorvastatin 80 - lipid panel pending - Neurology has been called on consultation Shortness of breath - possibly 2/2 pneumonia; possibly 2/2 community acquired, possibly 2/2 gram negative source - No reported SOB today; mild cough persistent - Fever noted overnight - CXR 06/23: Subtle right lower lobe opacities have developed since the last exam. Since the last exam is 9 years ago, I cannot rule out the possibility of chronic change versus early pneumonia. Correlate clinically. - CT chest 06/23: 1. Right lower lobe opacities likely fibrotic and/or subsegmental atelectatic changes. Changes from early pneumonia cannot be completely excluded. 2. Chronic lung field changes with cylindrical bronchiectasis. 3. Mediastinal adenopathy as described above. - c/w Levaquin (Day #2) Hyponatremia - likely 2/2 hypovolemic hypotonic etiology - Currently, patient appears to have some signs of hypovolemia - Lab work is also consistent with some acute kidney injury - Serum osmolality consistent with hypotonia; FENa: 0.4% - Cortisol levels pending - c/w IV fluid hydration Acute kidney injury - Patients baseline creatinine is approximately 1.0 - Will check urine analysis and urine electrolytes - Will hold nephrotoxic medications including diuretics - c/w IV fluid hydration Leukopenia - Review the patients prior records indicates that shes been experiencing this since at least 2012 - Will continue to monitor Macrocytic anemia - Patients hemoglobin appears to be lower than baseline - B12 and folate levels pending - Continue to monitor Hypomagnesemia - Will supplement again today Weight loss / poor appetite - Patient has also reported a weight loss of approximately 20-30 pounds over 1-2 months and has reported a very poor appetite. - Patient will need to get appropriate screening completed as an outpatient HTN - Allow for permissive hypertension - Will hold antihypertensive medications at this time - c/w IV fluid hydration Hypothyroidism - c/w Levothyroxine Gout - c/w Allopurinol Mood disorder - c/w Duloxetine Vitamin D deficiency - c/w supplementation Recent suggested diagnosis of Parkinsons - Will hold Carbidopa / Levodopa at this time DVT prophylaxis - c/w Heparin VS,Fishbone, I+O VS, Fishbone, I+O Laboratory Tests 06/23/18 11:16 Red Blood Count 3.10 L, Mean Corpuscular Volume 100.6 H, Mean Corpuscular Hemoglobin 34.8 H, Mean Corpuscular Hemoglobin Concent 34.6, Red Cell Distribution Width 14.9 H, Neutrophils (%) (Auto) 79.2 H, Lymphocytes (%) (Auto) 8.3 L, Monocytes (%) (Auto) 10.2 H, Eosinophils (%) (Auto) 0.4, Basophils (%) (Auto) 0.4, Neutrophils # (Auto) 2.1, Lymphocytes # (Auto) 0.2 L, Monocytes # (Auto) 0.3, Eosinophils # (Auto) 0.0, Basophils # (Auto) 0.0 06/23/18 18:13 Calcium Level 8.8 06/24/18 00:12 Calcium Level 8.9 06/24/18 05:04 Red Blood Count 2.81 L, Mean Corpuscular Volume 99.6 H, Mean Corpuscular Hemoglobin 34.2 H, Mean Corpuscular Hemoglobin Concent 34.3, Red Cell Distribution Width 14.7 H, Neutrophils (%) (Auto) 76.5 H, Lymphocytes (%) (Auto) 6.9 L, Monocytes (%) (Auto) 13.5 H, Eosinophils (%) (Auto) 1.9, Basophils (%) (Auto) 0.3, Neutrophils # (Auto) 2.4, Lymphocytes # (Auto) 0.2 L, Monocytes # (Auto) 0.4, Eosinophils # (Auto) 0.1, Basophils # (Auto) 0.0, Calcium Level 8.7 L Vital Signs Date Time Temp Pulse Resp B/P (MAP) Pulse Ox O2 Delivery O2 Flow Rate FiO2 06/24/18 08:00 98.5 93 18 89/55 (66) 97 06/24/18 04:00 1.0 06/23/18 15:14 Nasal Cannula I&O- Last 24 Hours up to 6 AM 06/24/18 06:00 Intake Total 2390 ml Output Total 1700 ml Balance 690 ml CHUCHO HERNANDEZ MD June 24, 2018 10:29
[2018-06-24] MEDS: SINEMET 25-100 MG TAB PO SCH ×2 (12:33→17:10)
--- NOTE | 2018-06-24 12:53 | REP ---
HISTORY: CVA like symptoms. COMPARISON: None. The craniovertebral junction is within normal limits. The imaged portion of the spinal cord is within normal limits. The ventricles and sulci are within normal limits for the patient's age. There are no extra-axial fluid collections. T2 and particularly FLAIR deep white matter signal and periventricular signal hyperintensities are present in a nonspecific fashion. There is no mass or mass effect. No abnormal signal is seen on DWI or ADC map imaging. The posterior fossa is within normal limits. The sella turcica, cavernous and pericavernous structures are unremarkable. The cerebellopontine angles are within normal limits. The orbital and petrous structures show no abnormalities. IMPRESSION: Age-related changes with deep white matter ischemic disease suspected as described above. There is no evidence of an acute intracranial hemorrhagic or nonhemorrhagic event. Electronically Signed by Alfonso Price DO 06/24/2018 01:13 P
--- NOTE | 2018-06-24 13:51 | REP ---
HISTORY: Stoke-like symptoms. COMPARISON: None. TECHNIQUE: MIP reformatted 3D images of the [place] of [place] and proximal intracranial vasculature were obtained. The source images were obtained in the axial scan plane using gradient-echo technique. FINDINGS: There is no evidence of an aneurysm or AVM. Perfusion to the hemispheres is symmetric. There is no evidence of significant signal decrease that would be considered consistent with an area of occlusion or severe stenosis. IMPRESSION: Unremarkable brain MRA. Electronically Signed by Alfonso Price DO 06/24/2018 02:30 P
[2018-06-24] MEDS ORDERED: **NOTE PATIENT COMMENT** MISC XX ONE (15:00)
[2018-06-24 15:48] LABS: CALCIUM LEVEL 7.9 MG/DL (8.8-10.2); CREATININE FOR GFR 1.2 MG/DL (0.55-1.30); GLOMERULAR FILTRATION RATE 47.1 (>39); POTASSIUM SERUM 3.8 MEQ/L (3.5-5.1)
[2018-06-24] MEDS: ONDANSETRON 4MG/2ML VIAL (J2405) IV PRN (18:25)
--- NOTE | 2018-06-24 20:33 | CR ---
DATE OF CONSULTATION: 06/24/2018 REFERRING PHYSICIAN: Dr. Perico Gardiner REASON FOR CONSULTATION: The patient was found down at home. HISTORY OF PRESENT ILLNESS: Nataliya Davis is a 73-year-old woman with history of gout who was seen at our office earlier this week due to difficulty walking and frequent falls over the last couple of months. The patient was accompanied by her son during her office visits who had stated that she had off-and-on tremor over the last couple of months. She denied any difficulty with her sense of smell, dream enactment at night although the patient lives alone. She denied any trouble with sense of smell. She started falling down over the last 2 months and has suffered multiple falls. She has difficulty walking. She has history of chronic neck and back pain. She denies any headaches, seizures, dysphagia, dysarthria, diplopia, urinary incontinence. The patient states that she fell again and could not get up. Her friend found her at her house. She is not sure if she lost consciousness or duration how long she was on the floor before she was found. She denies any head injuries. I suspected the patient may have Parkinsonism and recommended a trial of carbidopa/levodopa 25/100 mg which she started half tablet twice a day and is titrating up. She has lost 20-30 pounds in last couple of months due to poor appetite. PAST MEDICAL HISTORY: Hypertension, hypothyroidism, gout, left nephrectomy, thyroidectomy, hysterectomy, cholecystectomy, appendectomy, tonsillectomy, left lung biopsy, left arm fracture. HOME MEDICATIONS: - allopurinol 100 mg by mouth twice a day - vitamin D3 5000 units by mouth daily - Sinemet 25/100 mg, half a tablet by mouth twice a day - Cymbalta 30 mg by mouth daily - Lasix 40 mg by mouth daily - levothyroxine 112 mcg by mouth daily - lisinopril 20 mg by mouth daily - methotrexate 7.5 mg twice a week - potassium chloride 10 mEq by mouth twice a day - verapamil 250 mg by mouth daily FAMILY HISTORY: Mother had pancreatic cancer. Father had heart disease. He also had dementia. SOCIAL HISTORY: She denies smoking, alcohol or illicit drugs. She lives alone in [place]. ALLERGIES: PENICILLIN REVIEW OF SYSTEMS: All systems were reviewed and found to be noncontributory except as mentioned in history of present illness. PHYSICAL EXAMINATION: Temperature 98.5, pulse 93, respiratory rate 18, blood pressure 137/71. Heart: Regular rate and rhythm. Lungs: Clear to auscultation. Abdomen: Soft, nontender, nondistended. No pedal edema. No musculoskeletal abnormalities. No rash. No signs of meningeal irritation. The patient is awake, alert, oriented to place, person and time. Recent and distant memory is intact. No facial weakness. Tongue and uvula are midline. Extraocular muscles are intact. Visual chavira are full to confrontation. No nystagmus. 5/5 strength in all four extremities. Deep tendon reflexes are 2+ throughout. Normal sensation in legs. Her gait is shuffling. DIAGNOSTIC STUDIES: CT scan of head was reviewed and showed small vessel ischemic disease of brain and CT scan of cervical spine showed cervical spondylosis. Her CBC was within normal limits. BMP showed creatinine 1.5 and glucose 216 with capital BUN 30. ASSESSMENT: 1. Suspected parkinsonism and frequent falls. 2. Small-vessel ischemic disease of brain as seen on CT scan of head. 3. Episode of fall and it is unclear if the patient lost unconsciousness and how long she was on the ground before she was found. 4. Cervical spondylosis as seen on CT scan of cervical spine. PLAN: 1. MRI and MRA brain and carotid ultrasound. 2. Aspirin 81 mg by mouth daily and Lipitor 80 mg by mouth daily. 3. Increase Sinemet 25/100 mg to one tablet by mouth three times a day and we can further increase it to see if it helps her mobility. If her gait does not improve with Sinemet, she can have parkinsonism from Lewy body dementia or multiple system atrophy. These conditions may not improve with Sinemet. 4. Physical and occupational therapy. 5. Follow with our office in 2-3 weeks after hospital discharge. The patient may already have a scheduled appointment that she can keep as well.
[2018-06-24] MEDS: LIDOCAINE 5% (LIDODERM) PATCH TD SCH (20:56)
[2018-06-25] MEDS: NS 1,000 ML IV SCH ×5 (01:02→23:55)
[2018-06-25 04:00] VITALS: BP 110/64
[2018-06-25] MEDS: LEVOTHYROXINE 112MCG TABLET (0.112MG) PO SCH (05:23)
[2018-06-25] MEDS: HEPARIN SOD (PORCINE) 5000 UNITS/ML VIAL SC SCH ×3 (05:24→21:38)
[2018-06-25 05:43] LABS: BASO % 0.8 % (0.0-1.0); CALCIUM LEVEL 8.2 MG/DL (8.8-10.2); CREATININE FOR GFR 1.02 MG/DL (0.55-1.30); EOS # 0.1 10^3/uL (0.0-0.50); EOS % 2.7 % (0.0-3.0); GLOMERULAR FILTRATION RATE 56.9 (>39); HEMATOCRIT 26.8 % (36.0-47.0); HEMOGLOBIN 9.1 g/dl (12.0-15.5); LYMPH # 0.3 10^3/uL (1.5-4.5); LYMPH % 12.8 % (24.0-44.0); MAGNESIUM LEVEL 1.6 MG/DL (1.8-2.4); MEAN CORPUSCULAR HEMOGLOBIN 34.6 pg (27.0-33.0); MEAN CORPUSCULAR VOLUME 101.9 fl (80.0-96.0); MONO # 0.3 10^3/uL (0.0-0.8); MONO % 13.2 % (0.0-5.0); NEUTROPHILS # 1.8 10^3/uL (1.8-7.7); NEUTROPHILS % 68.6 % (36.0-66.0); PLATELET COUNT, AUTOMATED 244 10^3/uL (150-450); POTASSIUM SERUM 3.6 MEQ/L (3.5-5.1); RED BLOOD COUNT 2.63 10^6/uL (4.00-5.40); WHITE BLOOD COUNT 2.6 10^3/uL (4.0-10.0)
--- NOTE | 2018-06-25 06:27 | ECHO ---
DATE OF PROCEDURE: 06/23/2018 AGE: 73. GENDER: Female. HEIGHT: 64 inches. WEIGHT: 171 pounds. BODY SURFACE AREA: 1.83 meters squared INPATIENT: PCU - Room 3225 REFERRING PHYSICIAN: Dr. Perico Gardiner INDICATION: CVA MEASUREMENTS 2-D Measurements: RV: 2.8 cm LV: 3.6 cm Septum: 1.0 cm Posterior wall: 0.9 cm Aortic root: 2.9 cm LA: 3.5 cm Ascending aorta: 3.4 cm LVEF 65% Doppler Measurements: AV: 1.5 m/s LVOT: 1.2 m/s LVOT diameter: 1.8 cm MV - E 59 A 75 EA ratio 0.8 Early mitral deceleration time: 198 ms E prime: 6.3 A prime: 12 E/E prime ratio: 9.3 PV: 1.0 m/s Pulmonary artery acceleration time: 95 ms RVSP: 39 mmHg IVC: 2.0 cm COMMENTS: Normal sinus rhythm without intraventricular conduction disturbance. Occasional isolated PAC. M-mode and two-dimensional echocardiography was performed with pulsed, continuous wave, color flow and tissue Doppler study. Normal left ventricular size, wall thickness and wall motion. Left atrial size upper limits of normal with Doppler evidence of an impairment of LV diastolic function, but currently normal estimated mean left atrial pressure. Normal right heart chamber sizes and wall motion with current Doppler evidence of mild pulmonary hypertension. Normal inferior vena cava (IVC) size and collapse against an elevated central venous pressure. Slight asymmetrical aortic valvular sclerosis without functional abnormality. Normal aortic root size. Normal appearing mitral valvular apparatus and leaflet excursion with no posterior systolic buckling or insufficiency. Normal appearing tricuspid valve with mild insufficiency. No apparent separate intracardiac mass or pericardial effusion. If a cardiac source of embolic material is seriously suspect, transesophageal echocardiography is the investigation of choice.
[2018-06-25] MEDS ORDERED: MAG SULF 1GM/100ML (MAG RUN) 1 GM in APPROPRIATE DILUENT 1 EA IV ONE (07:30)
[2018-06-25 08:00] VITALS: BP 112/64
[2018-06-25] MEDS: DULoxetine 30 MG CAP (CYMBALTA) PO SCH (08:56)
[2018-06-25] MEDS: ASPIRIN 81 MG ENTERIC TAB PO SCH (08:56)
[2018-06-25] MEDS: ATORVASTATIN 20 MG TAB PO SCH (08:56)
[2018-06-25] MEDS: SINEMET 25-100 MG TAB PO SCH ×3 (08:57→16:47)
[2018-06-25] MEDS: VITAMIN D 1,000 INTERNATIONAL UNITS TABLET PO SCH (08:57)
[2018-06-25] MEDS: ALLOPURINOL 100 MG TAB PO SCH ×2 (08:59→20:30)
[2018-06-25] MEDS: **NOTE PATIENT COMMENT** MISC XX SCH (09:00)
[2018-06-25] MEDS: ACETAMINOPHEN TAB 650MG DOSE (2X325MG) PO PRN ×3 (09:13→23:51)
[2018-06-25 10:10] LABS: CORTISOL BASELINE 40.9 UG/DL (4.3-22.4); VITAMIN B12 LEVEL 764 PG/ML
[2018-06-25 10:17] LABS: FOLATE 5.5 NG/ML
[2018-06-25 10:19] LABS: TOTAL 25(OH) VITAMIN D 105.6 NG/ML (30.0-100.0)
[2018-06-25 12:00] VITALS: BP 100/56
--- NOTE | 2018-06-25 12:48 | IPNPDOC ---
Text Note Date of Service The patient was seen on 06/25/18. NOTE Subjective: Patient is a 73-year-old female with a PMHx of HTN, Hypothyroidism, Gout, and a recent suggested diagnosis of Parkinsons. Patient has presented to the emergency room after she was found down at home. It is unclear when the patient had fallen in how long she was down family was present at the bedside and have indicated that the last day. Cousin had spoke with her was yesterday evening at 5:30 on the phone. At that time, she was okay, but reported some feeling of fatigue. In the emergency room, patient was found to have imaging consistent with a subacute stroke, as well as possible right lower lobe pneumonia. Patient was admitted to the hospitalist service for further evaluation and treatment. Neurology was called on consultation. Patient was seen and examined sitting up in chair. She denies any cough or shortness of breath. Denies chest pain or palpitations. Will be continued to work with physical therapy and occupational therapy today. Reports some nausea without any significant vomiting. Denies abdominal pain. Has had no urinary discomfort. Objective: Vitals (See below) General: Lying in bed, no acute distress, comfortable, AAOx3 HEENT: NC, AT CVS: RRR, +S1S2 Lungs: Fair air entry b/l, no evidence of wheezing, rales or rhonchi on auscultation Abdomen: Soft, without tenderness or distention is without tenderness / distention Extremities: No LE edema, - Calf tenderness Neuro: no appreciable deficits noted Assessment and plan: Frequent falls / Confusion - possibly 2/2 sub-acute cerebrovascular accident - Patient has presented to the emergency room with complaints of frequent falls over the last 2 weeks associated with confusion - Physical does not reveal any focal neurologic deficits; patient is currently oriented 3 - Family has indicated that she has been expressing confusion about day of the week as an outpatient - CT head 06/23: 1. 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 This needs to be correlated clinically. 2. Age related changes. 3. Other findings as described above. - CT cervical spine 06/23: No evidence of an acute fracture. Chronic changes as described above. - XR pelvis 06/23: Chronic changes. No fracture. - Duplex US Carotid 06/24: According to the NASCET consensus criteria, there is less than 50% stenosis of the internal carotid artery bilaterally. - MRI Brain 06/24: Age-related changes with deep white matter ischemic disease suspected as described above. There is no evidence of an acute intracranial hemorrhagic or nonhemorrhagic event. T2 signal hyperintensities are seen in the right mastoid air cells consistent with either chronic change or possibly acute mastoid changes upon chronic disease. This should be correlated clinically. - MRA Brain 06/24: Unremarkable brain MRA. - ECHO 06/24: impaired diastolic function, Normal IVC, mild Tricuspid insufficiency, no apparent separate intracardiac mass / pericardial effusion - c/w neuro checks and telemetry monitoring - c/w ASA 81; s/p ASA 325 in ER - c/w Atorvastatin 80 - Neurology has been called on consultation Fever - possibly 2/2 pneumonia; possibly 2/2 community acquired, possibly 2/2 gram negative source; possibly 2/2 sinusitis - Today, patient does not report any shortness of breath or cough - Fever noted overnight - Blood cultures 06/23: Negative at 24 hours - CXR 06/23: Subtle right lower lobe opacities have developed since the last exam. Since the last exam is 9 years ago, I cannot rule out the possibility of chronic change versus early pneumonia. Correlate clinically. - CT chest 06/23: 1. Right lower lobe opacities likely fibrotic and/or subsegmental atelectatic changes. Changes from early pneumonia cannot be completely excluded. 2. Chronic lung field changes with cylindrical bronchiectasis. 3. Mediastinal adenopathy as described above. - c/w Levaquin (Day #3) Hyponatremia - likely 2/2 hypovolemic hypotonic etiology - Improving - Serum osmolality consistent with hypotonia; FENa: 0.4% - Cortisol levels appropriate - c/w IV fluid hydration s/p Acute kidney injury - likely 2/2 pre-renal etiology - Patients baseline creatinine is approximately 1.0 - Improving and has approached baseline - Will hold nephrotoxic medications including diuretics - c/w IV fluid hydration Leukopenia - Review the patients prior records indicates that shes been experiencing this since at least 2012 - Will continue to monitor Macrocytic anemia - Patients hemoglobin appears to be lower than baseline - B12 and folate levels pending - Continue to monitor Hypomagnesemia - Will supplement again today Weight loss / poor appetite - Patient has also reported a weight loss of approximately 20-30 pounds over 1-2 months and has reported a very poor appetite. - Patient will need to get appropriate screening completed as an outpatient HTN - Will hold antihypertensive medications at this time - c/w IV fluid hydration Hypothyroidism - c/w Levothyroxine Gout - c/w Allopurinol Mood disorder - c/w Duloxetine Vitamin D deficiency - c/w supplementation Recent suggested diagnosis of Parkinsons - Carbidopa / Levodopa has been restarted by Neurology - Neurology has been consulted; appreciate their input DVT prophylaxis - c/w Heparin Disposition: - Will c/w PT / OT VS,Fishbone, I+O VS, Fishbone, I+O Laboratory Tests 06/24/18 15:11 Calcium Level 7.9 L 06/25/18 04:59 Calcium Level 8.2 L, Red Blood Count 2.63 L, Mean Corpuscular Volume 101.9 H, Mean Corpuscular Hemoglobin 34.6 H, Mean Corpuscular Hemoglobin Concent 34.0, Red Cell Distribution Width 14.9 H, Neutrophils (%) (Auto) 68.6 H, Lymphocytes (%) (Auto) 12.8 L, Monocytes (%) (Auto) 13.2 H, Eosinophils (%) (Auto) 2.7, Basophils (%) (Auto) 0.8, Neutrophils # (Auto) 1.8, Lymphocytes # (Auto) 0.3 L, Monocytes # (Auto) 0.3, Eosinophils # (Auto) 0.1, Basophils # (Auto) 0.0 Vital Signs Date Time Temp Pulse Resp B/P (MAP) Pulse Ox O2 Delivery O2 Flow Rate FiO2 06/25/18 08:00 98.1 92 18 112/64 (80) 92 06/24/18 04:00 1.0 06/23/18 15:14 Nasal Cannula I&O- Last 24 Hours up to 6 AM 06/25/18 06:00 Intake Total 4140 ml Output Total 1830 ml Balance 2310 ml CHUCHO HERNANDEZ MD June 25, 2018 12:48
[2018-06-25] MEDS ORDERED: LevoFLOXacin IV 750 MG in APPROPRIATE DILUENT 1 EA IV SCH (13:00)
[2018-06-25 16:00] VITALS: BP 120/50
[2018-06-25 20:00] VITALS: BP 122/74
[2018-06-25] MEDS: MAGNESIUM OXIDE 400 MG TAB (MAG-OX) PO SCH (20:31)
[2018-06-25] MEDS: LIDOCAINE 5% (LIDODERM) PATCH TD SCH (20:37)
[2018-06-26] VITALS (7 sets, daily range): BP systolic 98–135; BP diastolic 55–72
[2018-06-26] MEDS: ONDANSETRON 4MG/2ML VIAL (J2405) IV PRN ×2 (00:55→15:14)
[2018-06-26] MEDS: HEPARIN SOD (PORCINE) 5000 UNITS/ML VIAL SC SCH ×3 (05:12→22:05)
[2018-06-26] MEDS: LEVOTHYROXINE 112MCG TABLET (0.112MG) PO SCH (05:12)
[2018-06-26] MEDS: ACETAMINOPHEN TAB 650MG DOSE (2X325MG) PO PRN (06:03)
[2018-06-26 06:06] LABS: BASO % 0.4 % (0.0-1.0); EOS # 0.1 10^3/uL (0.0-0.50); EOS % 1.7 % (0.0-3.0); HEMATOCRIT 28.7 % (36.0-47.0); HEMOGLOBIN 9.9 g/dl (12.0-15.5); LYMPH # 0.4 10^3/uL (1.5-4.5); LYMPH % 7.6 % (24.0-44.0); MEAN CORPUSCULAR HEMOGLOBIN 35.5 pg (27.0-33.0); MEAN CORPUSCULAR HGB CONC 34.5 g/dl (32.0-36.5); MEAN CORPUSCULAR VOLUME 102.9 fl (80.0-96.0); MONO # 0.2 10^3/uL (0.0-0.8); MONO % 5.2 % (0.0-5.0); NEUTROPHILS # 3.8 10^3/uL (1.8-7.7); NEUTROPHILS % 83.4 % (36.0-66.0); PLATELET COUNT, AUTOMATED 273 10^3/uL (150-450); RED BLOOD COUNT 2.79 10^6/uL (4.00-5.40); WHITE BLOOD COUNT 4.6 10^3/uL (4.0-10.0)
[2018-06-26 06:38] LABS: BLOOD UREA NITROGEN 9 MG/DL (7-18); CALCIUM LEVEL 8.2 MG/DL (8.8-10.2); CARBON DIOXIDE LEVEL 22 MEQ/L (21-32); CHLORIDE LEVEL 104 MEQ/L (98-107); CREATININE FOR GFR 0.89 MG/DL (0.55-1.30); GLOMERULAR FILTRATION RATE > 60.0 (>39); GLUCOSE, FASTING 83 MG/DL (70-100); MAGNESIUM LEVEL 1.6 MG/DL (1.8-2.4); POTASSIUM SERUM 3.7 MEQ/L (3.5-5.1); SODIUM LEVEL 133 MEQ/L (136-145)
[2018-06-26] MEDS ORDERED: MAG SULF 1GM/100ML (MAG RUN) 1 GM in APPROPRIATE DILUENT 1 EA IV ONE (07:00)
[2018-06-26] MEDS ORDERED: SLF 3 ML SYR IV PRN (08:15)
[2018-06-26] MEDS: **NOTE PATIENT COMMENT** MISC XX SCH (09:00)
[2018-06-26] MEDS: ATORVASTATIN 20 MG TAB PO SCH (09:18)
[2018-06-26] MEDS: DULoxetine 30 MG CAP (CYMBALTA) PO SCH (09:18)
[2018-06-26] MEDS: ASPIRIN 81 MG ENTERIC TAB PO SCH (09:18)
[2018-06-26] MEDS: VITAMIN D 1,000 INTERNATIONAL UNITS TABLET PO SCH (09:18)
[2018-06-26] MEDS: SINEMET 25-100 MG TAB PO SCH ×3 (09:19→17:29)
[2018-06-26] MEDS: ALLOPURINOL 100 MG TAB PO SCH ×2 (09:19→20:07)
[2018-06-26] MEDS: MAGNESIUM OXIDE 400 MG TAB (MAG-OX) PO SCH ×2 (09:19→20:07)
--- NOTE | 2018-06-26 10:33 | IPNPDOC ---
Text Note Date of Service The patient was seen on 06/26/18. NOTE Subjective: Patient is a 73-year-old female with a PMHx of HTN, Hypothyroidism, Gout, and a recent suggested diagnosis of Parkinsons. Patient has presented to the emergency room after she was found down at home. It is unclear when the patient had fallen in how long she was down family was present at the bedside and have indicated that the last day. Cousin had spoke with her was yesterday evening at 5:30 on the phone. At that time, she was okay, but reported some feeling of fatigue. In the emergency room, patient was found to have imaging consistent with a subacute stroke, as well as possible right lower lobe pneumonia. Patient was admitted to the hospitalist service for further evaluation and treatment. Neurology was called on consultation. Patient was seen and examined sitting up in chair. Patient reports that she has continued to experience fevers overnight. She denies any CP, SOB or significant cough. She does report nausea, without any vomiting this morning. Denies abdominal pain, diarrhea or discomfort with urination. Objective: Vitals (See below) General: Lying in bed, no acute distress, comfortable, AAOx3 HEENT: NC, AT CVS: RRR, +S1S2 Lungs: Air entry is fair bilaterally without evidence of rhonchi, rales or wheezing Abdomen: Again abdomen is soft without distention or tenderness Extremities: Lower extremities are without edema, - Calf tenderness Neuro: No neurologic deficits are noted on physical exam; strength 5 out of 5 bilaterally upper and lower extremities Assessment and plan: Frequent falls / Confusion - possibly 2/2 dementia, possibly 2/2 deconditioning, possibly 2/2 Parkinson's, unlikely 2/2 sub-acute cerebrovascular accident; - Patient has presented to the emergency room with complaints of frequent falls over the last 2 weeks associated with confusion - Physical does not reveal any focal neurologic deficits; patient is currently oriented 3 - Family has indicated that she has been expressing confusion about day of the week as an outpatient - CT head 06/23: 1. 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 This needs to be correlated clinically. 2. Age related changes. 3. Other findings as described above. - CT cervical spine 06/23: No evidence of an acute fracture. Chronic changes as described above. - XR pelvis 06/23: Chronic changes. No fracture. - Duplex US Carotid 06/24: According to the NASCET consensus criteria, there is less than 50% stenosis of the internal carotid artery bilaterally. - MRI Brain 06/24: Age-related changes with deep white matter ischemic disease suspected as described above. There is no evidence of an acute intracranial hemorrhagic or nonhemorrhagic event. T2 signal hyperintensities are seen in the right mastoid air cells consistent with either chronic change or possibly acute mastoid changes upon chronic disease. This should be correlated clinically. - MRA Brain 06/24: Unremarkable brain MRA. - ECHO 06/24: impaired diastolic function, Normal IVC, mild Tricuspid insufficiency, no apparent separate intracardiac mass / pericardial effusion - c/w neuro checks and telemetry monitoring - c/w ASA 81; s/p ASA 325 in ER - c/w Atorvastatin 80 - Neurology has been called on consultation Fever - possibly 2/2 pneumonia; possibly 2/2 community acquired, possibly 2/2 gram negative source; possibly 2/2 sinusitis - Today, patient does not report any shortness of breath or cough - Again patient has continued to experience fevers - Blood cultures 06/23: Negative at 24 hours - Her WBC count has normalized; will trend CRP to evaluate trend - CXR 06/23: Subtle right lower lobe opacities have developed since the last exam. Since the last exam is 9 years ago, I cannot rule out the possibility of chronic change versus early pneumonia. Correlate clinically. - CT chest 06/23: 1. Right lower lobe opacities likely fibrotic and/or subsegmental atelectatic changes. Changes from early pneumonia cannot be completely excluded. 2. Chronic lung field changes with cylindrical bronchiectasis. 3. Mediastinal adenopathy as described above. - Will repeat CXR today - c/w Levaquin (Day #4) Hyponatremia - likely 2/2 hypovolemic hypotonic etiology - Improving; appears stabl e - Serum osmolality consistent with hypotonia; FENa: 0.4% - Cortisol levels appropriate - Will DC IV fluid hydration s/p Acute kidney injury - likely 2/2 pre-renal etiology - Patients baseline creatinine is approximately 1.0 - Improving and has approached baseline - Will hold nephrotoxic medications including diuretics - Will DC IV fluid hydration s/p Leukopenia - Review the patients prior records indicates that shes been experiencing this since at least 2012 - Will continue to monitor Macrocytic anemia - Patients hemoglobin appears to be lower than baseline - B12 and folate levels appear wnl - Continue to monitor Hypomagnesemia - Will supplement again today Weight loss / poor appetite - Patient has also reported a weight loss of approximately 20-30 pounds over 1-2 months and has reported a very poor appetite. - Patient will need to get appropriate screening completed as an outpatient HTN - Will hold antihypertensive medications at this time - Will DC IV fluid hydration Hypothyroidism - c/w Levothyroxine Gout - c/w Allopurinol Mood disorder - c/w Duloxetine Vitamin D deficiency - c/w supplementation Recent suggested diagnosis of Parkinsons - Carbidopa / Levodopa has been restarted by Neurology - Neurology has been consulted; appreciate their input DVT prophylaxis - c/w Heparin Disposition: - Will c/w PT / OT - Repeat CXR - Trend CRP VS,Jefferybone, I+O VS, Sameera, I+O Laboratory Tests 06/26/18 05:47 Red Blood Count 2.79 L, Mean Corpuscular Volume 102.9 H, Mean Corpuscular Hemoglobin 35.5 H, Mean Corpuscular Hemoglobin Concent 34.5, Red Cell Distribution Width 15.2 H, Neutrophils (%) (Auto) 83.4 H, Lymphocytes (%) (Auto) 7.6 L, Monocytes (%) (Auto) 5.2 H, Eosinophils (%) (Auto) 1.7, Basophils (%) (Auto) 0.4, Neutrophils # (Auto) 3.8, Lymphocytes # (Auto) 0.4 L, Monocytes # (Auto) 0.2, Eosinophils # (Auto) 0.1, Basophils # (Auto) 0.0, Calcium Level 8.2 L Vital Signs Date Time Temp Pulse Resp B/P (MAP) Pulse Ox O2 Delivery O2 Flow Rate FiO2 06/26/18 08:00 98.7 93 26 134/61 (85) 93 2.0 06/23/18 15:14 Nasal Cannula I&O- Last 24 Hours up to 6 AM 06/26/18 05:59 Intake Total 5780 ml Output Total 1750 ml Balance 4030 ml CHUCHO HERNANDEZ MD June 26, 2018 10:33
[2018-06-26 10:45] LABS: C REACTIVE PROTEIN QUANTITATIV 5.49 MG/DL (0.00-0.30)
[2018-06-26 10:46] LABS: C REACTIVE PROTEIN QUANTITATIV 6.21 MG/DL (0.00-0.30)
[2018-06-26 11:07] LABS: C REACTIVE PROTEIN QUANTITATIV 8.94 MG/DL (0.00-0.30)
--- NOTE | 2018-06-26 11:31 | REP ---
Chest two views HISTORY: Shortness of breath Comparison: 06/23/2018 Parenchymal densities are present in the right lower lobe and left upper lobe consistent with atelectasis or infiltrates. As blunting of the costophrenic angles due to small pleural effusions. The heart is normal in size. The pulmonary vasculature is normal in appearance. The bony structure is intact. IMPRESSION: 1. Right lower lobe and left upper lobe atelectasis or infiltrate. 2. Small bilateral pleural effusions. Electronically Signed by Marcio Mosley MD 06/26/2018 11:22 A
[2018-06-26] MEDS ORDERED: FUROSEMIDE 20 MG/2 ML VIAL (J1940) IV ONE (12:00)
[2018-06-26] MEDS: SLF 3 ML SYR IV SCH ×2 (14:00→22:04)
--- NOTE | 2018-06-26 15:53 | NUR ---
Recommend pureed solids and thin liquids d/t effortful swallow & moderate throat clearing w/ advanced consistencies. Dysphagia tx for laryngeal strengthening exercises and PO trials advanced level solids w/ compensatory strategy training. Addendum: 06/26/18 at 1554 by NAT [facility] Amended: Links added.
[2018-06-26 16:30] LABS: FREE T4 1.72 NG/DL (0.76-1.46); THYROID STIMULATING HORMONE 0.166 uIU/ML (0.358-3.740); TOTAL T3 39.4 NG/DL (60.0-181.0)
--- NOTE | 2018-06-26 17:14 | REP ---
CT ABDOMEN AND PELVIS WITHOUT CONTRAST: CT Abdomen and pelvis was performed without oral or IV contrast. Sagittal and coronal reconstruction images are performed. There are small bilateral pleural effusions with mild adjacent atelectasis/infiltrate in the visualized lung bases. The liver is grossly unremarkable. Patient has had a prior cholecystectomy. There is mild expected prominence of the common bile duct. The spleen, adrenals and pancreas are grossly unremarkable as is the right kidney. There is no right hydronephrosis. There absence of the left kidney. There is mild atherosclerotic calcification of the abdominal aorta without aneurysm. I see no adenopathy, free air or free fluid. No bowel thickening is seen. There is no evidence of appendicitis. There is no evidence of bowel obstruction. Urinary bladder appears unremarkable. Multiple metallic clips are seen in the pelvis status-post hysterectomy. There are degenerative changes of the spine. IMPRESSION: Small bilateral pleural effusions with mild adjacent atelectasis/infiltrate in the visualized lung bases. Small hiatal hernia. Status-post cholecystectomy. Otherwise no acute abnormalities seen in the abdomen or pelvis. Electronically Signed by Marco Terrell MD 06/27/2018 09:29 A
[2018-06-26 17:41] LABS: C REACTIVE PROTEIN QUANTITATIV 11.7 MG/DL (0.00-0.30)
[2018-06-26] MEDS ORDERED: METOCLOPRAMIDE INJ 10MG/2ML VIAL (J2765) IV ONE (20:00)
[2018-06-26] MEDS: MOXIFLOXACIN HCL 400 MG in APPROPRIATE DILUENT 1 EA IV SCH (20:07)
[2018-06-26] MEDS: LIDOCAINE 5% (LIDODERM) PATCH TD SCH (20:07)
[2018-06-27 03:15] VITALS: BP 154/90
[2018-06-27] MEDS: LEVOTHYROXINE 112MCG TABLET (0.112MG) PO SCH (05:21)
[2018-06-27] MEDS: SLF 3 ML SYR IV SCH ×3 (05:22→22:00)
[2018-06-27] MEDS: HEPARIN SOD (PORCINE) 5000 UNITS/ML VIAL SC SCH ×4 (05:22→22:00)
[2018-06-27 06:00] VITALS: BP 118/69
[2018-06-27 06:43] LABS: BASO % 0.7 % (0.0-1.0); EOS % 0.3 % (0.0-3.0); HEMATOCRIT 26.7 % (36.0-47.0); HEMOGLOBIN 9.4 g/dl (12.0-15.5); LYMPH # 0.8 10^3/uL (1.5-4.5); LYMPH % 14.5 % (24.0-44.0); MEAN CORPUSCULAR HEMOGLOBIN 35.1 pg (27.0-33.0); MEAN CORPUSCULAR HGB CONC 35.2 g/dl (32.0-36.5); MEAN CORPUSCULAR VOLUME 99.6 fl (80.0-96.0); MONO # 0.3 10^3/uL (0.0-0.8); MONO % 4.9 % (0.0-5.0); NEUTROPHILS # 4.5 10^3/uL (1.8-7.7); PLATELET COUNT, AUTOMATED 281 10^3/uL (150-450); RED BLOOD COUNT 2.68 10^6/uL (4.00-5.40); WHITE BLOOD COUNT 5.7 10^3/uL (4.0-10.0)
[2018-06-27 07:07] LABS: BLOOD UREA NITROGEN 8 MG/DL (7-18); CALCIUM LEVEL 7.9 MG/DL (8.8-10.2); CARBON DIOXIDE LEVEL 24 MEQ/L (21-32); CHLORIDE LEVEL 101 MEQ/L (98-107); CREATININE FOR GFR 0.82 MG/DL (0.55-1.30); FERRITIN 1029 NG/ML (8-252); GLOMERULAR FILTRATION RATE > 60.0 (>39); GLUCOSE, FASTING 78 MG/DL (70-100); IRON (FE) 10 UG/DL (50-170); LDH LACTATE DEHYDROGENASE 301 U/L (84-246); MAGNESIUM LEVEL 1.4 MG/DL (1.8-2.4); PERCENT SATURATION 9.3 % (13.2-45.0); POTASSIUM SERUM 3.5 MEQ/L (3.5-5.1); SODIUM LEVEL 133 MEQ/L (136-145); TOTAL IRON BINDING CAPACITY 108 UG/DL (250-450)
[2018-06-27] MEDS: DILUENT IV SCH ×2 (09:29→10:00)
[2018-06-27] MEDS: MAG SULF IV SCH ×2 (09:29→10:00)
[2018-06-27] MEDS: ASPIRIN 81 MG ENTERIC TAB PO SCH (09:34)
[2018-06-27] MEDS: VITAMIN D 1,000 INTERNATIONAL UNITS TABLET PO SCH (09:34)
[2018-06-27] MEDS: MAGNESIUM OXIDE 400 MG TAB (MAG-OX) PO SCH ×2 (09:35→20:12)
[2018-06-27] MEDS: ATORVASTATIN 20 MG TAB PO SCH (09:35)
[2018-06-27] MEDS: SINEMET 25-100 MG TAB PO SCH ×3 (09:35→17:39)
[2018-06-27] MEDS: DULoxetine 30 MG CAP (CYMBALTA) PO SCH (09:35)
[2018-06-27] MEDS: ALLOPURINOL 100 MG TAB PO SCH ×2 (09:35→20:12)
[2018-06-27] MEDS: **NOTE PATIENT COMMENT** MISC XX SCH (09:35)
--- NOTE | 2018-06-27 11:00 | IPNPDOC ---
Text Note Date of Service The patient was seen on 06/27/18. NOTE Subjective: Patient is a 73-year-old female with a PMHx of HTN, Hypothyroidism, Gout, and a recent suggested diagnosis of Parkinsons. Patient has presented to the emergency room after she was found down at home. It is unclear when the patient had fallen in how long she was down family was present at the bedside and have indicated that the last day. Cousin had spoke with her was yesterday evening at 5:30 on the phone. At that time, she was okay, but reported some feeling of fatigue. In the emergency room, patient was found to have imaging consistent with a subacute stroke, as well as possible right lower lobe pneumonia. Patient was admitted to the hospitalist service for further evaluation and treatment. Neurology was called on consultation. Patient was seen and examined at the bedside. . She reports that she had fallen out of bed yesterday, unsure of how. Did not sustain any injuries. Patient reports some nausea without any significant vomiting. Denies abdominal pain. Denies chest pain, shortness of breath or any significant cough. Denies any urinary discomfort. Objective: Vitals (See below) General: Lying in bed, no acute distress, comfortable, AAOx3 HEENT: NC, AT CVS: RRR, +S1S2 Lungs: Appears to be fair air entry bilaterally without any auscultated evidence of rhonchi or wheezing, mild crackles are appreciated bilaterally Abdomen: Abdomen has remained soft without distention or tenderness Extremities: No calf tenderness and no lower extremity edema appreciated Neuro: No neurologic deficits are noted on physical exam; strength 5 out of 5 bilaterally upper and lower extremities Assessment and plan: Frequent falls / Confusion - possibly 2/2 dementia, possibly 2/2 deconditioning, possibly 2/2 Parkinson's, unlikely 2/2 sub-acute cerebrovascular accident; - Patient has presented to the emergency room with complaints of frequent falls over the last 2 weeks associated with confusion - Physical does not reveal any focal neurologic deficits; patient is currently oriented 3 - Family has indicated that she has been expressing confusion about day of the week as an outpatient - CT head 06/23: 1. 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 This needs to be correlated clinically. 2. Age related changes. 3. Other findings as described above. - CT cervical spine 06/23: No evidence of an acute fracture. Chronic changes as described above. - XR pelvis 06/23: Chronic changes. No fracture. - Duplex US Carotid 06/24: According to the NASCET consensus criteria, there is less than 50% stenosis of the internal carotid artery bilaterally. - MRI Brain 06/24: Age-related changes with deep white matter ischemic disease suspected as described above. There is no evidence of an acute intracranial hemorrhagic or nonhemorrhagic event. T2 signal hyperintensities are seen in the right mastoid air cells consistent with either chronic change or possibly acute mastoid changes upon chronic disease. This should be correlated clinically. - MRA Brain 06/24: Unremarkable brain MRA. - ECHO 06/24: impaired diastolic function, Normal IVC, mild Tricuspid insufficiency, no apparent separate intracardiac mass / pericardial effusion - c/w neuro checks and telemetry monitoring - c/w ASA 81; s/p ASA 325 in ER - c/w Atorvastatin; will reduce dose - Neurology on consultation Fever - possibly 2/2 pneumonia; possibly 2/2 community acquired, possibly 2/2 gram negative source; possibly 2/2 sinusitis - Again patient has no specific complaints of SOB / Cough - Fevers appear to be low grade this morning at 100.8F - Blood cultures 06/23: Negative at 72 hours; Repeat Blood cultures 06/26: Pend ing; Respiratory panel 06/26: Negative; MRSA 06/26: Pending - WBC count normalized; CRP appears to be plateauing - CXR 06/23: Subtle right lower lobe opacities have developed since the last exam. Since the last exam is 9 years ago, I cannot rule out the possibility of chronic change versus early pneumonia. Correlate clinically. - CT chest 06/23: 1. Right lower lobe opacities likely fibrotic and/or subsegmental atelectatic changes. Changes from early pneumonia cannot be completely excluded. 2. Chronic lung field changes with cylindrical bronchiectasis. 3. Mediastinal adenopathy as described above. - CXR 06/26: 1. Right lower lobe and left upper lobe atelectasis or infiltrate. 2. Small bilateral pleural effusions. - CT abdomen / pelvis 06/27: Small bilateral pleural effusions with mild adjacent atelectasis/infiltrate in the visualized lung bases. Small hiatal hernia. Status-post cholecystectomy. Otherwise no acute abnormalities seen in the abdomen or pelvis. - Infectious disease on consult - Was started on Moxifloxacin (Day #2); s/p Levaquin (Received for 4 days) Hyponatremia - likely 2/2 hypovolemic hypotonic etiology - Improving; appears stable - Serum osmolality consistent with hypotonia; FENa: 0.4% - Cortisol levels appropriate - s/p IV fluid hydration s/p Acute kidney injury - likely 2/2 pre-renal etiology - Patients baseline creatinine is approximately 1.0 - Improving and has approached baseline - Will hold nephrotoxic medications including diuretics - Will DC IV fluid hydration s/p Leukopenia - Review the patients prior records indicates that shes been experiencing this since at least 2012 - Will continue to monitor Macrocytic anemia - Patients hemoglobin appears to be lower than baseline - B12 and folate levels appear wnl - Continue to monitor Hypomagnesemia - Will adjust supplementation Weight loss / poor appetite - Patient has also reported a weight loss of approximately 20-30 pounds over 1-2 months and has reported a very poor appetite. - Patient will need to get appropriate screening completed as an outpatient HTN - Will hold antihypertensive medications at this time - Will DC IV fluid hydration Hypothyroidism - c/w Levothyroxine Gout - c/w Allopurinol Mood disorder - c/w Duloxetine Vitamin D deficiency - c/w supplementation Recent suggested diagnosis of Parkinsons - Carbidopa / Levodopa has been restarted by Neurology - Neurology has been consulted; appreciate their input DVT prophylaxis - c/w Heparin Disposition: - Will c/w PT / OT VS,Fishbone, I+O VS, Fishbone, I+O Laboratory Tests 06/27/18 06:19 Red Blood Count 2.68 L, Mean Corpuscular Volume 99.6 H, Mean Corpuscular Hemoglobin 35.1 H, Mean Corpuscular Hemoglobin Concent 35.2, Red Cell Distribution Width 15.2 H, Neutrophils (%) (Auto) 78.0 H, Lymphocytes (%) (Auto) 14.5 L, Monocytes (%) (Auto) 4.9, Eosinophils (%) (Auto) 0.3, Basophils (%) (Auto) 0.7, Neutrophils # (Auto) 4.5, Lymphocytes # (Auto) 0.8 L, Monocytes # (Auto) 0.3, Eosinophils # (Auto) 0.0, Basophils # (Auto) 0.0, Calcium Level 7.9 L Vital Signs Date Time Temp Pulse Resp B/P (MAP) Pulse Ox O2 Delivery O2 Flow Rate FiO2 06/27/18 09:45 2.0 06/27/18 06:00 100.8 98 14 118/69 (85) 90 06/23/18 15:14 Nasal Cannula I&O- Last 24 Hours up to 6 AM 06/27/18 06:00 Intake Total 910 ml Output Total 750 ml Balance 160 ml CHUCHO HERNANDEZ MD June 27, 2018 11:00
[2018-06-27 14:00] VITALS: BP 120/60
--- NOTE | 2018-06-27 15:46 | NUR ---
Recommend upgrade to level 2 mechanically altered (NDD) solids, continue thin liquids, please provide vanilla ensure w/ meals. Pt tolerated soft solids and thin liquids w/ no s/sx oropharyngeal dysphagia. Moderate belching noted after PO intake. Questionable esophageal complications, although this may be related to increased pace of PO intake. Today, pt admits to dysphagia beginning 1 month ago which she described as intermittent dry mouth and globus sensation. However, her story has been very inconsistent. Addendum: 06/27/18 at [address] [facility] Amended: Links added.
[2018-06-27] MEDS: MOXIFLOXACIN HCL 400 MG in APPROPRIATE DILUENT 1 EA IV SCH (20:11)
[2018-06-27] MEDS: LIDOCAINE 5% (LIDODERM) PATCH TD SCH (20:13)
[2018-06-27 22:00] VITALS: BP 136/74
[2018-06-28 06:00] VITALS: BP 142/84
[2018-06-28 06:00] LABS: BASO % 0.6 % (0.0-1.0); EOS # 0.1 10^3/uL (0.0-0.50); EOS % 1.4 % (0.0-3.0); HEMATOCRIT 27.2 % (36.0-47.0); HEMOGLOBIN 9.3 g/dl (12.0-15.5); LYMPH # 1.1 10^3/uL (1.5-4.5); LYMPH % 20.7 % (24.0-44.0); MEAN CORPUSCULAR HEMOGLOBIN 34.1 pg (27.0-33.0); MEAN CORPUSCULAR HGB CONC 34.2 g/dl (32.0-36.5); MEAN CORPUSCULAR VOLUME 99.6 fl (80.0-96.0); MONO # 0.5 10^3/uL (0.0-0.8); MONO % 8.7 % (0.0-5.0); NEUTROPHILS # 3.5 10^3/uL (1.8-7.7); NEUTROPHILS % 67.2 % (36.0-66.0); PLATELET COUNT, AUTOMATED 306 10^3/uL (150-450); RED BLOOD COUNT 2.73 10^6/uL (4.00-5.40); WHITE BLOOD COUNT 5.2 10^3/uL (4.0-10.0)
[2018-06-28 06:16] LABS: BLOOD UREA NITROGEN 8 MG/DL (7-18); CALCIUM LEVEL 8.3 MG/DL (8.8-10.2); CARBON DIOXIDE LEVEL 26 MEQ/L (21-32); CHLORIDE LEVEL 102 MEQ/L (98-107); CREATININE FOR GFR 0.73 MG/DL (0.55-1.30); GLOMERULAR FILTRATION RATE > 60.0 (>39); GLUCOSE, FASTING 73 MG/DL (70-100); MAGNESIUM LEVEL 1.7 MG/DL (1.8-2.4); POTASSIUM SERUM 3.5 MEQ/L (3.5-5.1); SODIUM LEVEL 134 MEQ/L (136-145)
[2018-06-28] MEDS: HEPARIN SOD (PORCINE) 5000 UNITS/ML VIAL SC SCH ×3 (06:29→21:45)
[2018-06-28] MEDS: LEVOTHYROXINE 112MCG TABLET (0.112MG) PO SCH (06:29)
[2018-06-28] MEDS: SLF 3 ML SYR IV SCH ×3 (06:29→21:46)
[2018-06-28] MEDS: ACETAMINOPHEN TAB 650MG DOSE (2X325MG) PO PRN (06:29)
[2018-06-28] MEDS ORDERED: MAG SULF 1GM/100ML (MAG RUN) 1 GM in APPROPRIATE DILUENT 1 EA IV ONE (07:30)
[2018-06-28] MEDS: MAGNESIUM OXIDE 400 MG TAB (MAG-OX) PO SCH ×2 (08:29→19:53)
[2018-06-28] MEDS: ATORVASTATIN 20 MG TAB PO SCH (08:29)
[2018-06-28] MEDS: ALLOPURINOL 100 MG TAB PO SCH ×2 (08:29→19:53)
[2018-06-28] MEDS: DULoxetine 30 MG CAP (CYMBALTA) PO SCH (08:29)
[2018-06-28] MEDS: ASPIRIN 81 MG ENTERIC TAB PO SCH (08:29)
[2018-06-28] MEDS: FERROUS SULFATE 325MG TAB PO SCH ×2 (08:29→19:53)
[2018-06-28] MEDS: SINEMET 25-100 MG TAB PO SCH ×3 (08:29→17:40)
[2018-06-28] MEDS: **NOTE PATIENT COMMENT** MISC XX SCH (08:30)
[2018-06-28] MEDS: VITAMIN D 1,000 INTERNATIONAL UNITS TABLET PO SCH (08:30)
--- NOTE | 2018-06-28 13:36 | IPNPDOC ---
Text Note Date of Service The patient was seen on 06/28/18. NOTE Subjective: Patient is a 73-year-old female with a PMHx of HTN, Hypothyroidism, Gout, and a recent suggested diagnosis of Parkinsons. Patient has presented to the emergency room after she was found down at home. It is unclear when the patient had fallen in how long she was down family was present at the bedside and have indicated that the last day. Cousin had spoke with her was yesterday evening at 5:30 on the phone. At that time, she was okay, but reported some feeling of fatigue. In the emergency room, patient was found to have imaging consistent with a subacute stroke, as well as possible right lower lobe pneumonia. Patient was admitted to the hospitalist service for further evaluation and treatment. Neurology was called on consultation. Patient was seen and examined at the bedside. Currently she reports improvement in her symptoms. Has not experienced any high grade fevers. Has been ambulating with physical therapy. Denies any chest pain, SOB or palpitations. Denies any N/V, ab pain, constipation / Diarrhea. Has no urinary discomfort. Objective: Vitals (See below) General: Lying in bed, no acute distress, comfortable, AAOx3 HEENT: NC, AT CVS: RRR, +S1S2 Lungs: Fair b/l, -wheezing / rhonchi / rales Abdomen: Soft / Non-distended / Non-tender Extremities: - Tenderness, - Pitting edema Neuro: No neurologic deficits are noted on physical exam; strength 5 out of 5 bilaterally upper and lower extremities Assessment and plan: Frequent falls / Confusion - possibly 2/2 dementia, possibly 2/2 deconditioning, possibly 2/2 Parkinson's, unlikely 2/2 sub-acute cerebrovascular accident; - Patient has presented to the emergency room with complaints of frequent falls over the last 2 weeks associated with confusion - Physical does not reveal any focal neurologic deficits; patient is currently oriented 3 - Family has indicated that she has been expressing confusion about day of the week as an outpatient - CT head 06/23: 1. 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 This needs to be correlated clinically. 2. Age related changes. 3. Other findings as described above. - CT cervical spine 06/23: No evidence of an acute fracture. Chronic changes as described above. - XR pelvis 06/23: Chronic changes. No fracture. - Duplex US Carotid 06/24: According to the NASCET consensus criteria, there is less than 50% stenosis of the internal carotid artery bilaterally. - MRI Brain 06/24: Age-related changes with deep white matter ischemic disease suspected as described above. There is no evidence of an acute intracranial hemorrhagic or nonhemorrhagic event. T2 signal hyperintensities are seen in the right mastoid air cells consistent with either chronic change or possibly acute mastoid changes upon chronic disease. This should be correlated clinically. - MRA Brain 06/24: Unremarkable brain MRA. - ECHO 06/24: impaired diastolic function, Normal IVC, mild Tricuspid insufficiency, no apparent separate intracardiac mass / pericardial effusion - c/w neuro checks and telemetry monitoring - c/w ASA 81; s/p ASA 325 in ER - c/w Atorvastatin - Neurology on consultation Fever - possibly 2/2 pneumonia; possibly 2/2 community acquired, possibly 2/2 gram negative source; possibly 2/2 sinusitis - Again patient has no specific complaints of SOB / Cough - Fevers appear to be low grade this morning at 100.8F - Blood cultures 06/23: Negative at 72 hours; Repeat Blood cultures 06/26: P ending; Respiratory panel 06/26: Negative; MRSA 06/26: Pending - WBC count normalized; CRP appears to be plateauing - CXR 06/23: Subtle right lower lobe opacities have developed since the last exam. Since the last exam is 9 years ago, I cannot rule out the possibility of chronic change versus early pneumonia. Correlate clinically. - CT chest 06/23: 1. Right lower lobe opacities likely fibrotic and/or subsegmental atelectatic changes. Changes from early pneumonia cannot be completely excluded. 2. Chronic lung field changes with cylindrical bronchiectasis. 3. Mediastinal adenopathy as described above. - CXR 06/26: 1. Right lower lobe and left upper lobe atelectasis or infiltrate. 2. Small bilateral pleural effusions. - CT abdomen / pelvis 06/27: Small bilateral pleural effusions with mild adjacent atelectasis/infiltrate in the visualized lung bases. Small hiatal hernia. Status-post cholecystectomy. Otherwise no acute abnormalities seen in the abdomen or pelvis. - Infectious disease on consult - c/w Moxifloxacin (Day #3); s/p Levaquin (Received for 4 days) Hyponatremia - likely 2/2 hypovolemic hypotonic etiology - Improving; appears stable - Serum osmolality consistent with hypotonia; FENa: 0.4% - Cortisol levels appropriate - s/p IV fluid hydration s/p Acute kidney injury - likely 2/2 pre-renal etiology - Patients baseline creatinine is approximately 1.0 - Improving and has approached baseline - Will avoid nephrotoxic medications including diuretics - s/p IV fluid hydration s/p Leukopenia - Review the patients prior records indicates that shes been experiencing this since at least 2012 - Will continue to monitor Macrocytic anemia - Patients hemoglobin appears to be lower than baseline - B12 and folate levels appear wnl - Continue to monitor Hypomagnesemia - Will adjust supplementation Weight loss / poor appetite - Patient has also reported a weight loss of approximately 20-30 pounds over 1-2 months and has reported a very poor appetite. - Patient will need to get appropriate screening completed as an outpatient HTN - Will hold antihypertensive medications at this time - s/p IV fluid hydration Hypothyroidism - c/w Levothyroxine Gout - c/w Allopurinol Mood disorder - c/w Duloxetine Vitamin D deficiency - c/w supplementation Recent suggested diagnosis of Parkinsons - Carbidopa / Levodopa has been restarted by Neurology - Neurology has been consulted; appreciate their input DVT prophylaxis - c/w Heparin Disposition: - Will c/w PT / OT - Anticipate transition to SSV tomorrow; will switch to oral Moxifloxacin VS,Fishbone, I+O VS, Fishbone, I+O Laboratory Tests 06/28/18 05:46 Red Blood Count 2.73 L, Mean Corpuscular Volume 99.6 H, Mean Corpuscular Hemog lobin 34.1 H, Mean Corpuscular Hemoglobin Concent 34.2, Red Cell Distribution Width 15.2 H, Neutrophils (%) (Auto) 67.2 H, Lymphocytes (%) (Auto) 20.7 L, Monocytes (%) (Auto) 8.7 H, Eosinophils (%) (Auto) 1.4, Basophils (%) (Auto) 0.6, Neutrophils # (Auto) 3.5, Lymphocytes # (Auto) 1.1 L, Monocytes # (Auto) 0.5, Eosinophils # (Auto) 0.1, Basophils # (Auto) 0.0, Calcium Level 8.3 L Vital Signs Date Time Temp Pulse Resp B/P (MAP) Pulse Ox O2 Delivery O2 Flow Rate FiO2 06/28/18 09:00 2.0 06/28/18 06:00 97.5 86 20 142/84 (103) 99 06/23/18 15:14 Nasal Cannula I&O- Last 24 Hours up to 6 AM 06/28/18 06:00 Intake Total 1460 ml Output Total 900 ml Balance 560 ml CHUCHO HERNANDEZ MD June 28, 2018 13:36
[2018-06-28 14:00] VITALS: BP 111/72
[2018-06-28] MEDS ORDERED: MOXIFLOXACIN 400 MG TAB PO SCH (20:00)
[2018-06-28] MEDS: LIDOCAINE 5% (LIDODERM) PATCH TD SCH (21:45)
[2018-06-28 22:00] VITALS: BP 122/76
--- NOTE | 2018-06-28 23:33 | CR ---
DATE OF CONSULTATION: 06/26/2018 INFECTIOUS DISEASE CONSULTATION This consultation was done on June 26, 2018. Asked to consult by Dr. Gardiner for evaluation of persistent fever in spite of being on Levaquin. HISTORY OF PRESENT ILLNESS: Mrs. Davis is a pleasant 73-year-old female who was recently diagnosed with Parkinson's disease and started on Sinemet about a week ago. The patient was brought into the emergency room after she was found down at home. It was unclear how long she had fallen for. She denied any nausea, vomiting or diarrhea. She had some fatigue and cough. The patient stated that she had fallen at least five times over the past couple of weeks. She is followed up now with Dr. Holder, and has been diagnosed with Parkinson's disease. The patient denied any chest pain. She had some shortness of breath and cough, which was nonproductive, for the past couple days. She had some palpitations but no headache, nausea, vomiting, abdominal pain, urinary symptoms. The patient had fevers up to 102. No neck stiffness. She would be lethargic at times. She also reported weight loss, about 20 pounds over the past 2 months. PAST MEDICAL HISTORY: Significant for hypertension, hypothyroidism, gout, recent diagnosis of Parkinson's disease, depression, questionable rheumatoid arthritis for which she takes methotrexate, as needed (p.r.n.) Tylenol. ALLERGIES: PENICILLIN causes swelling. PAST SURGICAL HISTORY: Left nephrectomy secondary to congenital kidney disease, thyroidectomy, hysterectomy, cholecystectomy, appendectomy, tonsillectomy, lung biopsy done by Dr. Sosa, left arm fracture. FAMILY HISTORY: Mother had pancreatic cancer. Father had heart disease and dementia. SOCIAL HISTORY: She has one son, Cam, who is her healthcare proxy. She was supposed to go to [place] this weekend to visit her niece who is getting . She denies alcohol, tobacco or illicit drug use. She lives in [place]. Review of systems already discussed in the history and physical. LABORATORY DATA: White count 4.6 on 06/26/2018; on 06/25/2018 white count was 2.6, hemoglobin 9.9, hematocrit 28.7, platelets 273, 83% neutrophils, 8% lymphocytes, 5% monocytes. Sodium 133, potassium 3.7, chloride 104, bicarbonate 22, BUN 9, creatinine 0.89, glucose 83, lactic acid 2.8, calcium 8.2, magnesium 1.6, CRP 8.94, which had increased from 5.5 on admission. Blood cultures on 06/23/2018 two sets were negative; 06/26/2018 two sets were reordered. IMAGING STUDIES: 06/23/2018 tibia/fibula x-ray were negative except for demineralization, chronic changes in the ankle and knee. Chest x-ray: Right lower lobe opacity, rule out early pneumonia. CT of the cervical spine: No evidence of acute fracture. Pelvic x-ray: Chronic changes. No fracture. Osteoarthritis. Chest CT done on 06/23/2018 shows right lower lobe opacities, fibrosis versus atelectasis versus pneumonia. Brain MRI, MRA were unremarkable. PHYSICAL EXAM: Temperature was 102.2, pulse 110, respirations 26, blood pressure 134/61, oxygen saturation (O2 sat) 93% on 2 liters nasal cannula. Heart: Normal S1, S2, tachycardiac. No murmurs appreciated. Lungs: Crackles at both bases. No wheezes or rhonchi. Abdomen: Obese, soft, nontender. No hepatosplenomegaly. Extremities: No clubbing, cyanosis, or edema. No calf tenderness. Skin: No rashes. No petechiae. MEDICATIONS: - levofloxacin 750 mg IV every 48 hours; the patient had one dose on 06/25/2018 - magnesium oxide 800 mg twice a day - lidocaine patch daily - Sinemet 25/100 three times a day - levothyroxine 112 mcg by mouth daily - aspirin 81 mg by mouth daily - allopurinol 100 mg by mouth twice a day - Tylenol as needed - Lipitor 80 mg by mouth nightly - vitamin D 5000 units by mouth daily - duloxetine 30 mg by mouth daily. IMPRESSION: This is a 73-year-old female who was admitted after she was found on the floor after sustaining a fall. She has no evidence of fracture. She has a mild cough, shortness of breath and mild hypoxia. Chest x-ray is suggestive of pneumonia. CT abdomen and pelvis does not show any pathology. Blood cultures are negative. There is no bacteremia. Urinalysis was benign. Other possibilities causing fever could be related to new medication she was started on, such as Sinemet, although less likely. She also could have a viral infection. PLAN: Obtain nasopharyngeal swab for viral PCR, methicillin-resistant Staphylococcus aureus (MRSA) screen, obtain procalcitonin level to rule out infectious process. Will switch Levaquin to moxifloxacin; it does not need renal dosing, and it has a better anaerobic coverage as there was concern for some aspiration. Obtain urine pneumococcal and Legionella antigen. Decrease dose of levothyroxine; her dose is quite elevated with elevated free T4 and low TSH. Thank you for the consultation.
[2018-06-29 00:06] LABS: Lyme Disease IgG/IgM Antibodie <0.91 ISR (0.00-0.90); Lyme Disease IgM Ab Quantitati <0.80 index (0.00-0.79)
[2018-06-29 06:00] VITALS: BP 159/91
[2018-06-29] MEDS: LEVOTHYROXINE 112MCG TABLET (0.112MG) PO SCH (06:14)
[2018-06-29] MEDS: SLF 3 ML SYR IV SCH (06:15)
[2018-06-29] MEDS: HEPARIN SOD (PORCINE) 5000 UNITS/ML VIAL SC SCH (06:15)
[2018-06-29] MEDS: ACETAMINOPHEN TAB 650MG DOSE (2X325MG) PO PRN (06:15)
[2018-06-29 07:00] LABS: BASO # 0.1 10^3/uL (0.0-0.2); BASO % 0.8 % (0.0-1.0); EOS # 0.2 10^3/uL (0.0-0.50); EOS % 2.9 % (0.0-3.0); HEMATOCRIT 26.7 % (36.0-47.0); LYMPH # 1.5 10^3/uL (1.5-4.5); LYMPH % 24.6 % (24.0-44.0); MEAN CORPUSCULAR HEMOGLOBIN 33.1 pg (27.0-33.0); MEAN CORPUSCULAR HGB CONC 33.7 g/dl (32.0-36.5); MEAN CORPUSCULAR VOLUME 98.2 fl (80.0-96.0); MONO # 0.8 10^3/uL (0.0-0.8); MONO % 12.5 % (0.0-5.0); NEUTROPHILS # 3.5 10^3/uL (1.8-7.7); NEUTROPHILS % 56.6 % (36.0-66.0); PLATELET COUNT, AUTOMATED 377 10^3/uL (150-450); RED BLOOD COUNT 2.72 10^6/uL (4.00-5.40); WHITE BLOOD COUNT 6.2 10^3/uL (4.0-10.0)
[2018-06-29 07:21] LABS: BLOOD UREA NITROGEN 9 MG/DL (7-18); C REACTIVE PROTEIN QUANTITATIV 9.15 MG/DL (0.00-0.30); CALCIUM LEVEL 8.4 MG/DL (8.8-10.2); CARBON DIOXIDE LEVEL 29 MEQ/L (21-32); CHLORIDE LEVEL 102 MEQ/L (98-107); CREATININE FOR GFR 0.72 MG/DL (0.55-1.30); GLOMERULAR FILTRATION RATE > 60.0 (>39); GLUCOSE, FASTING 99 MG/DL (70-100); MAGNESIUM LEVEL 1.8 MG/DL (1.8-2.4); POTASSIUM SERUM 4.1 MEQ/L (3.5-5.1); SODIUM LEVEL 136 MEQ/L (136-145)
[2018-06-29] MEDS: SINEMET 25-100 MG TAB PO SCH (08:50)
[2018-06-29] MEDS: MAGNESIUM OXIDE 400 MG TAB (MAG-OX) PO SCH (08:50)
[2018-06-29] MEDS: VITAMIN D 1,000 INTERNATIONAL UNITS TABLET PO SCH (08:50)
[2018-06-29] MEDS: FERROUS SULFATE 325MG TAB PO SCH (08:51)
[2018-06-29] MEDS: DULoxetine 30 MG CAP (CYMBALTA) PO SCH (08:51)
[2018-06-29] MEDS: ALLOPURINOL 100 MG TAB PO SCH (08:51)
[2018-06-29] MEDS: ATORVASTATIN 20 MG TAB PO SCH (08:51)
[2018-06-29] MEDS: ASPIRIN 81 MG ENTERIC TAB PO SCH (08:51)
[2018-06-29] MEDS: **NOTE PATIENT COMMENT** MISC XX SCH (09:30)
[2018-06-29] MEDS ORDERED: CARB25TA9 PO (11:06)
[2018-06-29] MEDS ORDERED: MOXI400T11 PO (11:06)
[2018-06-29] MEDS ORDERED: ATOR1TAB21 PO (11:06)
[2018-06-29] MEDS ORDERED: MAG400TA PO (11:06)
[2018-06-29] MEDS ORDERED: ASPI81TAEC PO (11:06)
[2018-06-29] MEDS ORDERED: FERR325T18 PO (11:06)
--- NOTE | 2018-06-29 12:36 | DS.PDOC ---
Discharge Summary General Date of Admission June 23, 2018 at 13:59 Date of Discharge 06/29/2018 Discharge Summary PROCEDURES PERFORMED DURING STAY: [None]. ADMITTING DIAGNOSES / DISCHARGE DIAGNOSES: Frequent falls / Confusion - possibly 2/2 dementia, possibly 2/2 deconditioning, possibly 2/2 Parkinson's, unlikely 2/2 sub-acute cerebrovascular accident; Fever - possibly 2/2 pneumonia; possibly 2/2 community acquired, possibly 2/2 gram negative source; possibly 2/2 sinusitis Hyponatremia - likely 2/2 hypovolemic hypotonic etiology s/p Acute kidney injury - likely 2/2 pre-renal etiology s/p Leukopenia Macrocytic anemia Hypomagnesemia Weight loss / poor appetite HTN Hypothyroidism Gout Mood disorder Vitamin D deficiency Recent suggested diagnosis of Parkinsons DVT prophylaxis COMPLICATIONS/CHIEF COMPLAINT: Frequent falls HISTORY OF PRESENT ILLNESS: Patient is a 73-year-old female with a PMHx of HTN, Hypothyroidism, Gout, and a recent suggested diagnosis of Parkinsons. Patient has presented to the emergency room after she was found down at home. It is unclear when the patient had fallen in how long she was down family was present at the bedside and have indicated that the last day. Cousin had spoke with her was yesterday evening at 5:30 on the phone. At that time, she was okay, but reported some feeling of fatigue. In the emergency room, patient was found to have imaging consistent with a subacute stroke, as well as possible right lower lobe pneumonia. Patient was admitted to the hospitalist service for further evaluation and treatment. Neurology was called on consultation. HOSPITAL COURSE: Frequent falls / Confusion - possibly 2/2 dementia, possibly 2/2 deconditioning, possibly 2/2 Parkinson's, unlikely 2/2 sub-acute cerebrovascular accident; - Patient has presented to the emergency room with complaints of frequent falls over the last 2 weeks associated with confusion - Physical does not reveal any focal neurologic deficits; patient is currently oriented 3 - Family has indicated that she has been expressing confusion about day of the week as an outpatient - CT head 06/23: 1. 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 This needs to be correlated clinically. 2. Age related changes. 3. Other findings as described above. - CT cervical spine 06/23: No evidence of an acute fracture. Chronic changes as described above. - XR pelvis 06/23: Chronic changes. No fracture. - Duplex US Carotid 06/24: According to the NASCET consensus criteria, there is less than 50% stenosis of the internal carotid artery bilaterally. - MRI Brain 06/24: Age-related changes with deep white matter ischemic disease suspected as described above. There is no evidence of an acute intracranial hemorrhagic or nonhemorrhagic event. T2 signal hyperintensities are seen in the right mastoid air cells consistent with either chronic change or possibly acute mastoid changes upon chronic disease. This should be correlated clinically. - MRA Brain 06/24: Unremarkable brain MRA. - ECHO 06/24: impaired diastolic function, Normal IVC, mild Tricuspid insufficiency, no apparent separate intracardiac mass / pericardial effusion - c/w neuro checks and telemetry monitoring - c/w ASA 81; s/p ASA 325 in ER - c/w Atorvastatin - Neurology on consultation; appreciate their input Fever - possibly 2/2 pneumonia; possibly 2/2 community acquired, possibly 2/2 gram negative source; possibly 2/2 sinusitis - Again patient has no specific complaints of SOB / Cough - Fevers appear to be low grade this morning at 100.8F - Blood cultures 06/23: Negative at 72 hours; Repeat Blood cultures 06/26: Pend ing; Respiratory panel 06/26: Negative; MRSA 06/26: Pending - WBC count normalized; CRP appears to be plateauing - CXR 06/23: Subtle right lower lobe opacities have developed since the last exam. Since the last exam is 9 years ago, I cannot rule out the possibility of chronic change versus early pneumonia. Correlate clinically. - CT chest 06/23: 1. Right lower lobe opacities likely fibrotic and/or subsegmental atelectatic changes. Changes from early pneumonia cannot be completely excluded. 2. Chronic lung field changes with cylindrical bronchiectasis. 3. Mediastinal adenopathy as described above. - CXR 06/26: 1. Right lower lobe and left upper lobe atelectasis or infiltrate. 2. Small bilateral pleural effusions. - CT abdomen / pelvis 06/27: Small bilateral pleural effusions with mild adjacent atelectasis/infiltrate in the visualized lung bases. Small hiatal hernia. Status-post cholecystectomy. Otherwise no acute abnormalities seen in the abdomen or pelvis. - Infectious disease on consult; appreciate their input - c/w Moxifloxacin (Day #4); s/p Levaquin (Received for 4 days) - will complete course of antibiotics as an outpatient Hyponatremia - likely 2/2 hypovolemic hypotonic etiology - Improving; appears stable - Serum osmolality consistent with hypotonia; FENa: 0.4% - Cortisol levels appropriate - s/p IV fluid hydration s/p Acute kidney injury - likely 2/2 pre-renal etiology - Patients baseline creatinine is approximately 1.0 - Improving and has approached baseline - Will avoid nephrotoxic medications including diuretics - s/p IV fluid hydration s/p Leukopenia - Review the patients prior records indicates that shes been experiencing this since at least 2012 - Will continue to monitor Macrocytic anemia - Patients hemoglobin appears to be lower than baseline - B12 and folate levels appear wnl - Continue to monitor Hypomagnesemia - c/w supplementation Weight loss / poor appetite - Patient has also reported a weight loss of approximately 20-30 pounds over 1-2 months and has reported a very poor appetite. - Patient will need to get appropriate screening completed as an outpatient HTN - Will hold antihypertensive medications at this time - s/p IV fluid hydration Hypothyroidism - c/w Levothyroxine Gout - c/w Allopurinol Mood disorder - c/w Duloxetine Vitamin D deficiency - c/w supplementation Recent suggested diagnosis of Parkinsons - Carbidopa / Levodopa has been restarted by Neurology - Neurology has been consulted; appreciate their input DVT prophylaxis - c/w Heparin DISCHARGE MEDICATIONS: Please see below. ALLERGIES: Please see below. PHYSICAL EXAMINATION ON DISCHARGE: Vitals (See below) General: Lying in bed, no acute distress, comfortable, AAOx3 HEENT: NC, AT CVS: RRR, +S1S2 Lungs: Fair b/l, no evidence of rhonchi, rales or wheezing upon auscultation Abdomen: Remains soft without distention or tenderness Extremities: No pitting edema or calf tenderness is appreciated Neuro: Physical exam is without neurologic deficits; strength 5/5 bilaterally upper and lower extremities LABORATORY DATA: Please see below. ACTIVITY: [As tolerated]. DISCHARGE PLAN: Follow-up with Dr. Marcio Bermudez, Dr. Lui / Sunil within remain7 days Remain compliant with treatment plan and medications Return to the ER if you experience any problems DISPOSITION: [facility] Keep Home DISCHARGE CONDITION: [Stable]. TIME SPENT ON DISCHARGE: 40 minutes Vital Signs/I&Os Vital Signs Date Time Temp Pulse Resp B/P (MAP) Pulse Ox O2 Delivery O2 Flow Rate FiO2 5/24/19 10:00 1.0 06/29/18 06:00 98.4 82 18 159/91 (113) 98 06/23/18 15:14 Nasal Cannula I&O- Last 24 Hours up to 6 AM 06/29/18 06:00 Intake Total 1100 ml Output Total 500 ml Balance 600 ml Laboratory Data Labs 24H Laboratory Tests 2 06/29/18 06:30: Immature Granulocyte % (Auto) 2.6, White Blood Count 6.2, Red Blood Count 2.72L, Hemoglobin 9.0L, Hematocrit 26.7L, Mean Corpuscular Volume 98.2H, Mean Corpuscular Hemoglobin 33.1H, Mean Corpuscular Hemoglobin Concent 33.7, Red Cell Distribution Width 15.4H, Platelet Count 377, Neutrophils (%) (Auto) 56.6, Lymphocytes (%) (Auto) 24.6, Monocytes (%) (Auto) 12.5H, Eosinophils (%) (Auto) 2.9, Basophils (%) (Auto) 0.8, Neutrophils # (Auto) 3.5, Lymphocytes # (Auto) 1.5, Monocytes # (Auto) 0.8, Eosinophils # (Auto) 0.2, Basophils # (Auto) 0.1, Nucleated Red Blood Cells % (auto) 0.0, Anion Gap 5L, Glomerular Filtration Rate > 60.0, Blood Urea Nitrogen 9, Creatinine 0.72, Sodium Level 136, Potassium Level 4.1, Chloride Level 102, Carbon Dioxide Level 29, Calcium Level 8.4L, Magnesium Level 1.8, C-Reactive Protein, Quantitative 9.15H CBC/BMP Laboratory Tests 06/29/18 06:30 Red Blood Count 2.72 L, Mean Corpuscular Volume 98.2 H, Mean Corpuscular Hemoglobin 33.1 H, Mean Corpuscular Hemoglobin Concent 33.7, Red Cell Distribut ion Width 15.4 H, Neutrophils (%) (Auto) 56.6, Lymphocytes (%) (Auto) 24.6, Monocytes (%) (Auto) 12.5 H, Eosinophils (%) (Auto) 2.9, Basophils (%) (Auto) 0.8, Neutrophils # (Auto) 3.5, Lymphocytes # (Auto) 1.5, Monocytes # (Auto) 0.8, Eosinophils # (Auto) 0.2, Basophils # (Auto) 0.1, Calcium Level 8.4 L Microbiology Microbiology 06/26/18 Blood Culture - Preliminary, Resulted No Growth after 48 hours. All Specime... 06/26/18 Blood Culture - Preliminary, Resulted No Growth after 48 hours. All Specime... 06/23/18 Blood Culture - Final, Complete NO GROWTH AFTER 5 DAYS 06/23/18 Blood Culture - Final, Complete NO GROWTH AFTER 5 DAYS 06/26/18 MRSA Screen - Final, Complete 06/26/18 Respiratory Virus Panel (PCR) (ELIZA) - Final, Complete Discharge Medications Scheduled Allopurinol (Allopurinol) 100 Mg Tablet, 100 MG PO BID, (Reported) Aspirin (Aspirin EC) 81 Mg Tablet.dr, 81 MG PO DAILY Atorvastatin Calcium (Atorvastatin Calcium) 20 Mg Tablet, 20 MG PO DAILY Carbidopa/Levodopa (Carbidopa-Levodopa 25-100 Tab) 1 Each Tablet, 0.5 TAB PO QID 1 TAB QID (0800/1200/1600/2000) Cholecalciferol (Vitamin D3) (Vitamin D3) 5,000 Unit Capsule, 5,000 UNIT PO DAILY, (Reported) Duloxetine Hcl (Duloxetine HCl) 30 Mg Capsule.dr, 30 MG PO DAILY, (Reported) Ferrous Sulfate (Ferrous Sulfate) 325 Mg Tablet, 325 MG PO BID Levothyroxine Sodium (Levothyroxine Sodium) 112 Mcg Tablet, 112 MCG PO DAILY, (Reported) Lisinopril (Lisinopril) 20 Mg Tablet, 20 MG PO QHS, (Reported) Magnesium Oxide (Magnesium Oxide) 400 Mg Tablet, 800 MG PO BID Moxifloxacin HCl (Moxifloxacin HCl) 400 Mg Tablet, 400 MG PO DAILY@2000 Potassium Chloride (Potassium Chloride) 10 Meq Tab.er.prt, 10 MEQ PO BID, (Reported) Verapamil Hcl (Verapamil ER) 240 Mg Tablet.er, 240 MG PO DAILY, (Reported) Scheduled PRN Acetaminophen (Acetaminophen) 325 Mg Tablet, 650 MG PO Q4H PRN for PAIN, (Reported) Allergies Coded Allergies: Penicillins (Verified Allergy, Unknown, SWELLING, 06/23/18) CHUCHO HERNANDEZ MD June 29, 2018 12:36
--- NOTE | 2018-06-29 23:22 | IPN ---
DATE: 06/28/2018 Nataliya feels much better. She is sitting in the chair. Oxygen was removed. Oxygen saturation on room air is 96%. She walked around mSpoke and did well. She is upset because her family is going to [place] for a wedding, and she was supposed to go with them, but this has to be postponed. VITAL SIGNS: Temperature 99.9 last night. Today she is afebrile. Temperature is 98.1, pulse 104, respirations 20, blood pressure 111/72, oxygen saturation 96% on room air. HEART: Normal S1, S2. No murmurs appreciated. LUNGS : Clear. No wheezes, rales, or rhonchi. ABDOMEN: Soft, nontender. No hepatosplenomegaly. EXTREMITIES: No clubbing, cyanosis, or edema. NEUROLOGIC: Normal. NECK: Supple. No neck stiffness. LABORATORY DATA: White count 5.2, hemoglobin 9.3, hematocrit 27.2, platelets 306, 67% neutrophils, 20% lymphocytes, 8% monocytes. Sodium 134, potassium 3.5, chloride 102, bicarbonate 26, BUN 8, creatinine 0.73, glucose 73, calcium 8.3, magnesium 1.7, CRP 10.8, down from 12.1. Procalcitonin 0.29, meaning lower for progression to severe sepsis, localized infection possible. MEDICATIONS: Moxifloxacin 400 mg by mouth daily. She is currently day #3. Switch from intravenous (IV) to by mouth today. History of hypothyroidism, over replaced on Synthroid. The patient is currently on Synthroid 112 mcg. This does need to be reduced. Will discuss with primary care team. Right lower lobe and left upper lobe pneumonia, on moxifloxacin, doing much better. Will send urine legionnaire and pneumococcal antigen. Continue with 7-day course of antibiotic. Decrease dose of levothyroxine. The patient probably would be clear to be discharged home in the next 24-48 hours.
== END 2018-06-29 12:50 | DRG 91 ==
LOC: EDBD 11:01 → M ED 11:01 → M ED INP 13:59 → M PCU 16:32 → M MS5PR 06-26 13:28
PROVIDERS: ADMIT Internal Medicine; ATTEND Internal Medicine
DX: R29.6 Repeated falls (principal); J15.6 Pneumonia due to other Gram-negative bacteria; E87.1 Hypo-osmolality and hyponatremia; N17.9 Acute kidney failure, unspecified; I10 Essential (primary) hypertension; E89.0 Postprocedural hypothyroidism; D72.819 Decreased white blood cell count, unspecified; M10.9 Gout, unspecified; F39 Unspecified mood [affective] disorder; M47.812 Spondylosis without myelopathy or radiculopathy, cervical region; F03.90 Unspecified dementia, unspecified severity, without behavioral disturbance, psychotic disturbance, mood disturbance, and anxiety; G20 Parkinson's disease; M16.0 Bilateral primary osteoarthritis of hip; E83.42 Hypomagnesemia; D53.9 Nutritional anemia, unspecified; R63.4 Abnormal weight loss; Z79.899 Other long term (current) drug therapy; Z88.0 Allergy status to penicillin; Z90.5 Acquired absence of kidney; Z90.49 Acquired absence of other specified parts of digestive tract; Z90.710 Acquired absence of both cervix and uterus

== ENCOUNTER → 2018-07-05 | Outpatient (REF) ==
[~2018-07-05] MED LIST: ACET-908 PO; ALLO100T PO; ALLOPOW4 PO; ASPI81TAEC PO; ATOR1TAB21 PO; CARB25TA9 PO; D 50CAP PO; DULO1CAP2 PO; FERR325T18 PO; FURO40TA2 PO; LEVO112T2 PO; LEVO125T4 PO; LISI-538 PO; MAG400TA PO; METH2.5T48 PO; MOXI400T11 PO; POTA10TA16 PO; VERA240T3 PO
[2018-07-05 09:34] LABS: CALCIUM LEVEL 9.9 MG/DL (8.8-10.2); CREATININE FOR GFR 1.32 MG/DL (0.55-1.30); GLOMERULAR FILTRATION RATE 42.2 (>39); MAGNESIUM LEVEL 2.4 MG/DL (1.8-2.4); POTASSIUM SERUM 4.1 MEQ/L (3.5-5.1)
== END ==
LOC: SKLAB2 08:31
PROVIDERS: ATTEND Internal Medicine
DX: G20 Parkinson's disease (principal)

== ENCOUNTER → 2018-07-06 | Outpatient (REF) ==
[2018-07-06 07:10] LABS: BASO # 0.1 10^3/uL (0.0-0.2); BASO % 0.7 % (0.0-1.0); EOS # 0.1 10^3/uL (0.0-0.50); EOS % 0.6 % (0.0-3.0); HEMATOCRIT 31.4 % (36.0-47.0); HEMOGLOBIN 10.1 g/dl (12.0-15.5); LYMPH # 3.2 10^3/uL (1.5-4.5); LYMPH % 21.4 % (24.0-44.0); MEAN CORPUSCULAR HEMOGLOBIN 32.8 pg (27.0-33.0); MEAN CORPUSCULAR HGB CONC 32.2 g/dl (32.0-36.5); MEAN CORPUSCULAR VOLUME 101.9 fl (80.0-96.0); MONO # 1.5 10^3/uL (0.0-0.8); MONO % 9.7 % (0.0-5.0); NEUTROPHILS % 66.6 % (36.0-66.0); PLATELET COUNT, AUTOMATED 570 10^3/uL (150-450); RED BLOOD COUNT 3.08 10^6/uL (4.00-5.40)
[2018-07-06 07:30] LABS: CALCIUM LEVEL 9.6 MG/DL (8.8-10.2); CREATININE FOR GFR 1.35 MG/DL (0.55-1.30); GLOMERULAR FILTRATION RATE 41.2 (>39); POTASSIUM SERUM 4.2 MEQ/L (3.5-5.1)
[2018-07-06 09:20] LABS: C REACTIVE PROTEIN QUANTITATIV 9.37 MG/DL (0.00-0.30)
[2018-07-06 09:48] LABS: ERYTHROCYTE SEDIMENTATION RATE 97 mm/hr (0-30)
== END ==
LOC: SKLAB2 08:47
PROVIDERS: ATTEND Internal Medicine
DX: J18.9 Pneumonia, unspecified organism (principal)

== ENCOUNTER → 2018-07-06 | Outpatient (REF) ==
--- NOTE | 2018-07-06 15:58 | REP ---
Clinical: Pneumonia. Comparison: 06/26/2018. Findings: Examination is limited by portable technique. Cardiac silhouette is within normal limits for portable technique. Perihilar infiltrates along with left lower lobe infiltrate and small to moderate left pleural effusion identified. No pneumothorax. Impression: 1. Left lower lobe infiltrate and small/moderate effusion. 2. Possible perihilar infiltrates. Electronically Signed by Rommel Cooper MD 07/06/2018 03:49 P
== END ==
LOC: SKLAB2 13:12
PROVIDERS: ATTEND Internal Medicine
DX: Z87.01 Personal history of pneumonia (recurrent) (principal)

== ENCOUNTER → 2018-07-16 | Outpatient (REF) ==
[2018-07-16 07:20] LABS: HEMATOCRIT 30.5 % (36.0-47.0); HEMOGLOBIN 9.9 g/dl (12.0-15.5); MEAN CORPUSCULAR HEMOGLOBIN 33.7 pg (27.0-33.0); MEAN CORPUSCULAR HGB CONC 32.5 g/dl (32.0-36.5); MEAN CORPUSCULAR VOLUME 103.7 fl (80.0-96.0); PLATELET COUNT, AUTOMATED 414 10^3/uL (150-450); RED BLOOD COUNT 2.94 10^6/uL (4.00-5.40); WHITE BLOOD COUNT 7.8 10^3/uL (4.0-10.0)
[2018-07-16 07:51] LABS: ALBUMIN 2.1 GM/DL (3.2-5.2); BILIRUBIN,TOTAL 0.4 MG/DL (0.2-1.0); CALCIUM LEVEL 9.1 MG/DL (8.8-10.2); CHOLESTEROL RISK RATIO 1.728 (<5); CREATININE FOR GFR 1.03 MG/DL (0.55-1.30); GLOMERULAR FILTRATION RATE 56.2 (>39); POTASSIUM SERUM 4.3 MEQ/L (3.5-5.1); THYROID STIMULATING HORMONE 3.14 uIU/ML (0.358-3.740); TOTAL PROTEIN 7.7 GM/DL (6.4-8.2)
== END ==
LOC: SKLAB2 07:00
PROVIDERS: ATTEND Internal Medicine
DX: D64.9 Anemia, unspecified (principal); E78.5 Hyperlipidemia, unspecified; E03.9 Hypothyroidism, unspecified

== ENCOUNTER → 2018-08-08 | Outpatient (REF) | payer MEDICARE ==
[~2018-08-08] MED LIST changes: -DULO1CAP2 PO; +DULO1CAP5 PO
[2018-08-08 17:31] LABS: BLOOD UREA NITROGEN 17 MG/DL (7-18); CALCIUM LEVEL 8.4 MG/DL (8.8-10.2); CARBON DIOXIDE LEVEL 30 MEQ/L (21-32); CHLORIDE LEVEL 103 MEQ/L (98-107); CREATININE FOR GFR 0.88 MG/DL (0.55-1.30); GLOMERULAR FILTRATION RATE > 60.0 (>39); GLUCOSE, FASTING 85 MG/DL (70-100); POTASSIUM SERUM 4.6 MEQ/L (3.5-5.1); SODIUM LEVEL 139 MEQ/L (136-145)
== END ==
LOC: M SHH 16:37
PROVIDERS: ATTEND Family Medicine
DX: I10 Essential (primary) hypertension (principal)

== ENCOUNTER 2018-11-03 19:27 | Inpatient (IN) | payer MEDICARE ==
[~2018-11-03] VITALS: Ht 162.6 cm; Wt 82.0 kg
[2018-11-03] MEDS ORDERED: CVS400CA PO (19:56)
[2018-11-03] MEDS ORDERED: FURO20TA2 PO (19:56)
[2018-11-03] MEDS ORDERED: TAB-TAB3 PO (19:57)
[2018-11-03] MEDS ORDERED: ACETAMINOPHEN 500 MG TAB PO ONE (20:30)
[2018-11-03] MEDS ORDERED: NS 1,000 ML IV ONE (20:30)
[2018-11-03 20:43] LABS: BASO % 0.2 % (0.0-1.0); HEMATOCRIT 36.3 % (36.0-47.0); LYMPH # 0.7 10^3/uL (1.5-5.0); LYMPH % 7.2 % (24.0-44.0); MEAN CORPUSCULAR HEMOGLOBIN 29.1 pg (27.0-33.0); MEAN CORPUSCULAR HGB CONC 33.1 g/dl (32.0-36.5); MEAN CORPUSCULAR VOLUME 88.1 fl (80.0-96.0); MONO # 0.7 10^3/uL (0.0-0.8); MONO % 7.9 % (0.0-5.0); NEUTROPHILS # 7.9 10^3/uL (1.5-8.5); NEUTROPHILS % 84.3 % (36.0-66.0); PLATELET COUNT, AUTOMATED 206 10^3/uL (150-450); RED BLOOD COUNT 4.12 10^6/uL (4.00-5.40); WHITE BLOOD COUNT 9.4 10^3/uL (4.0-10.0)
[2018-11-03] MEDS ORDERED: LevoFLOXacin IV 750 MG in IV 1 EA IV ONE (21:15)
[2018-11-03 21:42] LABS: ALBUMIN 2.8 GM/DL (3.2-5.2); ALT/SGPT 17 U/L (12-78); BILIRUBIN,DIRECT 0.3 MG/DL (0.0-0.2); BILIRUBIN,TOTAL 0.8 MG/DL (0.2-1.0); BLOOD UREA NITROGEN 14 MG/DL (7-18); CALCIUM LEVEL 8.2 MG/DL (8.8-10.2); CARBON DIOXIDE LEVEL 25 MEQ/L (21-32); CHLORIDE LEVEL 102 MEQ/L (98-107); CREATININE FOR GFR 0.78 MG/DL (0.55-1.30); GLOMERULAR FILTRATION RATE > 60.0 (>39); GLUCOSE, FASTING 104 MG/DL (70-100); POTASSIUM SERUM 3.9 MEQ/L (3.5-5.1); SODIUM LEVEL 136 MEQ/L (136-145); TOTAL PROTEIN 6.4 GM/DL (6.4-8.2)
[2018-11-03 21:59] LABS: INFLUENZA A AMPLIFICATION NEGATIVE (NEGATIVE); INFLUENZA B AMPLIFICATION NEGATIVE (NEGATIVE)
[2018-11-03] MEDS ORDERED: ATOR1TAB21 PO (22:15)
[2018-11-03] MEDS ORDERED: FERR1TAB8 PO (22:15)
[2018-11-03] MEDS ORDERED: MAGN400T PO (22:15)
[2018-11-03] MEDS ORDERED: ASPI81TA24 PO (22:15)
[2018-11-03] MEDS ORDERED: CARB25TA9 PO (22:15)
--- NOTE | 2018-11-03 23:01 | HPEPDOC ---
[facility] Medical History & Physical Date of Admission Nov 03, 2018 Date of Service: Nov 03, 2018 Primary Care Physician: MONIQUE DALY MD [facility] Attending Physician: LEONARD HUGHES MD History and Physical TIME OF SERVICE: 11:25 PM CHIEF COMPLAINT: Confusion HISTORY OF PRESENT ILLNESS: This is a 73-year-old female who was brought to the ED by her son who found her on the floor. At the time she was confused, had defecated on herself and had previously urinated on the bed. It's unclear how she got on the floor. She doesn't remember what happened earlier on in the day, or how she got to the hospital. She is aware that she is at the hospital but was not able to name the month. According to her son, the patient hadn't been feeling well yesterday, and didn't eat much. She has had a dry cough, shortness of breath, and fever. She denies having chills, denies having abdominal pain, denies having constipation, denies having diarrhea, and denies having muscle aches. According to her son, her weight has been stable. Per discussion with the ED provider when she arrived, she was not able to provide any history, had a fever, and her chest x-ray showed a left-sided infiltrate. She received Levaquin and IV fluids. REVIEW OF SYSTEMS: 12 point review of systems negative except as listed in HPI PAST MEDICAL/ SURGICAL HISTORY: Chronic hypertension. Parkinson's / unsteady gait, uses a walker Hypothyroidism Gout Status post cholecystectomy Status post hysterectomy. Status post appendectomy Status post thyroid resection for unclear reasons. 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 HOME MEDICATIONS: Please see below. PHYSICAL EXAMINATION: VITAL SIGNS: Please see below. GENERAL APPEARANCE: Well-nourished, well-developed, not in apparent distress HEENT: Normocephalic, atraumatic. Mucous membranes moist and pink CARDIOVASCULAR: Regular rate and rhythm. No murmurs, rubs or gallops. Radial pulses are intact. There is no lower extremity edema LUNGS: She's not using accessory muscles, able to speak full sentences without stopping and there is equal air entry bilaterally. She is coughing occasionally and there are decreased breath sounds at the left. ABDOMEN: Bowel sounds are hypoactive. Abdomen is soft and nontender on palpation MUSCULOSKELETAL: Range of motion is intact in all 4 extremities INTEGUMENT: Her cheeks are flushed. There is no generalized pallor NEUROLOGICAL: Cranial nerves II-12 are grossly intact. Speech is not dysarthric PSYCHIATRIC: Alert and oriented to person, and place. Thought it was November LABORATORY DATA: See below. IMAGING: Chest x-ray showed left-sided pneumonia on the final read is pending MICROBIOLOGY: Please see below. ASSESSMENT: Ms. Davis is a 73-year-old female with a past medical history of Parkinson's, chronic hypertension, hypothyroidism, and gout who will be admitted for management of sepsis secondary to pneumonia. PLAN: 1. Sepsis secondary to left sided pneumonia SIRS criteria include tachycardia and fever Lactic acid is elevated Confusion is likely due to the infection She has nondiabetic hyperglycemia Qsofa score is 1 = not high risk Source PNA per chest x-ray Influenza panel negative Plan: admit to PCU / telemetry / Sepsis protocol w repeat lactic acid/ c/w levaquin / c/w IVF /f/u blood cx, sputum Cx, legionella, urine strep, influenza / supplemental O2 / sputum, / tessalon pearls / Acetaminophen PRN for fever / hold iron while acutely ill 2. Chronic hypertension. Plan: Resume home meds in the morning 3. Parkinson's / unsteady gait, uses a walker The patient's son attributes her fall to her not taking her meds for 2 days Plan: Resume home meds tonight / PT eval, so that the patient can be referred to specialized balance therapy for patients with Parkinson's 4. Hypothyroidism Plan: Resume home meds 5. Gout Plan: Resume home meds 6.Obesity - if BMI > 31 Plan: can f/u w PCP for STOP BANG questionnaire registration representative consult / recommend cardiovascular exercise for 40 min 4-5 days a week DVT prophylaxis with Lovenox Disposition pending clinical course Vital Signs Vital Signs Date Time Temp Pulse Resp B/P (MAP) Pulse Ox O2 Delivery O2 Flow Rate FiO2 11/03/18 22:32 87 16 95 11/03/18 22:15 107/58 (74) 11/03/18 21:28 100.9 11/03/18 19:29 Room Air Laboratory Data Labs 24H Laboratory Tests 2 11/03/18 20:01: Immature Granulocyte % (Auto) 0.4, White Blood Count 9.4, Red Blood Count 4.12, Hemoglobin 12.0, Hematocrit 36.3, Mean Corpuscular Volume 88.1, Mean Corpuscular Hemoglobin 29.1, Mean Corpuscular Hemoglobin Concent 33.1, Red Cell Distribution Width 15.6H, Platelet Count 206, Neutrophils (%) (Auto) 84.3H, Lymphocytes (%) (Auto) 7.2L, Monocytes (%) (Auto) 7.9H, Eosinophils (%) (Auto) 0.0, Basophils (%) (Auto) 0.2, Neutrophils # (Auto) 7.9, Lymphocytes # (Auto) 0.7L, Monocytes # (Auto) 0.7, Eosinophils # (Auto) 0.0, Basophils # (Auto) 0.0, Nucleated Red Blood Cells % (auto) 0.0, Lactic Acid Level 3.2*H 11/03/18 21:08: Anion Gap 9, Glomerular Filtration Rate > 60.0, Calcium Level 8.2L, Aspartate Amino Transf (AST/SGOT) 18, Alanine Aminotransferase (ALT/SGPT) 17, Alkaline Phosphatase 98, Total Bilirubin 0.8, Direct Bilirubin 0.3H, Total Protein 6.4, Albumin 2.8L, Albumin/Globulin Ratio 0.78L 11/03/18 21:17: Influenza Type A (RT-PCR) NEGATIVE, Influenza Type B (RT-PCR) NEGATIVE CBC/BMP Laboratory Tests 11/03/18 20:01 Red Blood Count 4.12, Mean Corpuscular Volume 88.1, Mean Corpuscular Hemoglobin 29.1, Mean Corpuscular Hemoglobin Concent 33.1, Red Cell Distribution Width 15.6 H, Neutrophils (%) (Auto) 84.3 H, Lymphocytes (%) (Auto) 7.2 L, Monocytes (%) (Auto) 7.9 H, Eosinophils (%) (Auto) 0.0, Basophils (%) (Auto) 0.2, Neutrophils # (Auto) 7.9, Lymphocytes # (Auto) 0.7 L, Monocytes # (Auto) 0.7, Eosinophils # (Auto) 0.0, Basophils # (Auto) 0.0 11/03/18 21:08 Microbiology Microbiology 11/03/18 Blood Culture, Received Pending Home Medications Scheduled Allopurinol (Allopurinol) 100 Mg Tablet, 100 MG PO BID Aspirin (Aspirin EC) 81 Mg Tablet.dr, 81 MG PO DAILY Atorvastatin Calcium (Atorvastatin Calcium) 20 Mg Tablet, 20 MG PO DAILY Carbidopa/Levodopa (Carbidopa-Levodopa 25-100 Tab) 1 Each Tablet, 2 TAB PO TID Cholecalciferol (Vitamin D3) (Vitamin D3) 400 Unit Capsule, 800 UNIT PO DAILY Duloxetine Hcl (Duloxetine HCl) 30 Mg Capsule.dr, 30 MG PO DAILY Ferrous Sulfate (Ferrous Sulfate) 325 Mg Tablet, 325 MG PO BID Furosemide (Furosemide) 20 Mg Tablet, 20 MG PO DAILY Levothyroxine Sodium (Levothyroxine Sodium) 112 Mcg Tablet, 112 MCG PO DAILY Lisinopril (Lisinopril) 20 Mg Tablet, 20 MG PO QHS Magnesium Oxide (Magnesium Oxide) 400 Mg Tablet, 800 MG PO BID Multivitamin (Tab-A-Amy) 1 Each Tablet, 1 TAB PO DAILY Verapamil Hcl (Verapamil ER) 240 Mg Tablet.er, 240 MG PO DAILY Scheduled PRN Acetaminophen (Acetaminophen) 325 Mg Tablet, 650 MG PO Q4H PRN for PAIN Allergies Coded Allergies: Penicillins (Verified Allergy, Unknown, SWELLING, 06/23/18) A-FIB/CHADSVASC A-FIB History Current/History of A-Fib/PAF?: No Current PO Anticoag Therapy: LEONARD Marie MD Nov 03, 2018 23:01
[2018-11-04] VITALS (9 sets, daily range): BP systolic 99–154; BP diastolic 54–72
[2018-11-04] MEDS: MAGNESIUM OXIDE 400 MG TAB (MAG-OX) PO SCH ×3 (01:13→21:19)
[2018-11-04] MEDS: DULoxetine 30 MG CAP (CYMBALTA) PO SCH (01:13)
[2018-11-04] MEDS: ATORVASTATIN 20 MG TAB PO SCH (01:13)
[2018-11-04] MEDS: ALLOPURINOL 100 MG TAB PO SCH ×3 (01:14→21:17)
[2018-11-04] MEDS: BENZONATATE 100 MG CAP PO SCH ×3 (01:14→15:22)
[2018-11-04] MEDS: SINEMET 25-100 MG TAB PO SCH ×4 (01:15→21:18)
[2018-11-04] MEDS: LISINOPRIL 20 MG TAB PO SCH ×2 (01:17→21:18)
[2018-11-04] MEDS: VITAMIN D (CHOLECALCIFEROL) 400 INTERNATIONAL UNITS TAB PO SCH ×2 (02:07→21:19)
[2018-11-04] MEDS: LEVOTHYROXINE 112MCG TABLET (0.112MG) PO SCH (05:25)
[2018-11-04 05:31] LABS: HEMATOCRIT 32.7 % (36.0-47.0); HEMOGLOBIN 10.8 g/dl (12.0-15.5); MEAN CORPUSCULAR HEMOGLOBIN 28.5 pg (27.0-33.0); MEAN CORPUSCULAR VOLUME 86.3 fl (80.0-96.0); PLATELET COUNT, AUTOMATED 178 10^3/uL (150-450); RED BLOOD COUNT 3.79 10^6/uL (4.00-5.40); WHITE BLOOD COUNT 6.4 10^3/uL (4.0-10.0)
[2018-11-04 05:48] LABS: BLOOD UREA NITROGEN 13 MG/DL (7-18); CALCIUM LEVEL 8.3 MG/DL (8.8-10.2); CARBON DIOXIDE LEVEL 28 MEQ/L (21-32); CHLORIDE LEVEL 103 MEQ/L (98-107); CREATININE FOR GFR 0.82 MG/DL (0.55-1.30); GLOMERULAR FILTRATION RATE > 60.0 (>39); GLUCOSE, FASTING 113 MG/DL (70-100); MAGNESIUM LEVEL 1.8 MG/DL (1.8-2.4); POTASSIUM SERUM 3.7 MEQ/L (3.5-5.1); SODIUM LEVEL 135 MEQ/L (136-145)
[2018-11-04] MEDS: ACETAMINOPHEN 650MG ER TAB (TYLENOL ARTHRITIS) PO PRN (06:22)
[2018-11-04 06:35] LABS: APPEARANCE, URINE HAZY (CLEAR); BACTERIA, URINE AUTO 1+ (NEGATIVE); BILIRUBIN, URINE AUTO NEGATIVE (NEGATIVE); BLOOD, URINE BLOOD 2+ (NEGATIVE); COLOR, URINE YELLOW (YELLOW); GLUCOSE, URINE (UA) AUTO NEGATIVE (NEGATIVE); KETONE, URINE AUTO NEGATIVE (NEGATIVE); LEUKOCYTE ESTERASE, URINE AUTO NEGATIVE (NEGATIVE); MUCUS, URINE SMALL (NEGATIVE); NITRITE, URINE AUTO NEGATIVE (NEGATIVE); PROTEIN, URINE AUTO 1+ mg/dL (NEGATIVE); RBC, URINE AUTO 10 /HPF (0-3); SQUAMOUS EPITHELIAL CELL UR AU 3 /HPF (0-6); UROBILINOGEN, URINE AUTO 0.2 mg/dL (0.0-2.0); WBC, URINE AUTO 9 /HPF (0-3)
[2018-11-04] MEDS ORDERED: POTASSIUM CHLORIDE 10 MEQ SR TABLET PO ONE (08:00)
[2018-11-04] MEDS: ASPIRIN 81 MG ENTERIC TAB PO SCH (08:14)
[2018-11-04] MEDS: FUROSEMIDE 20 MG TAB PO SCH (08:15)
[2018-11-04] MEDS: VERAPAMIL 120 MG SR TAB PO SCH (08:18)
[2018-11-04] MEDS: ENOXAPARIN 40 MG/0.4 ML SYRINGE (J1650) SC SCH (08:20)
[2018-11-04] MEDS ORDERED: PNEUMOCOCCAL VACCINE 0.5ML SYRINGE(90732) PNEUMOVAX 23 IM ONE (09:00)
[2018-11-04] MEDS ORDERED: FLUBLOK(EGG FREE)(QUAD)INFLUENZA VACC 0.5ML SYRINGE (90682)18YRS&OLDER IM ONE (09:00)
--- NOTE | 2018-11-04 09:09 | REP ---
AP PORTABLE CHEST: 11/03/2018. Clinical history: Fever. Comparison 07/06/2018, 06/26/2018. Findings. Lungs are well inflated, There are diffuse patchy infiltrates in the left lower lobe seen lateral to the left heart border. The right lung was clear. No gross effusion. The heart, mediastinal and hilar contours grossly intact. The aorta mildly tortuous but without gross aneurysm. Airway intact. Bones with some minor degenerative changes in the spine and shoulders. Impression: 1. Left lower lobe patchy pneumonia. No effusion. Electronically Signed by Ivan Murillo MD 11/04/2018 01:07 P
[2018-11-04] MEDS: FERROUS SULFATE 325MG TAB PO SCH ×2 (09:50→21:18)
[2018-11-04] MEDS ORDERED: MAGNESIUM CHLORIDE 64 MG TABCR (SLO MAG) PO SCH (10:00)
--- NOTE | 2018-11-04 13:35 | IPNPDOC ---
Text Note Date of Service The patient was seen on 11/04/18. NOTE Subjective: Patient complains of fever, cough and mild sputum production Objective:VITAL SIGNS: Please see below. GENERAL APPEARANCE: Well-nourished, well-developed, not in apparent distress HEENT: Normocephalic, atraumatic. Mucous members moist and pink CARDIOVASCULAR: Regular rate and rhythm. No murmurs, rubs or gallops. Radial pulses are intact. There is no lower extremity edema LUNGS: . Diminished lung sounds, scattered lung sounds on the left side ABDOMEN: Bowel sounds are hypoactive. Abdomen is soft and nontender. MUSCULOSKELETAL: Range of motion is intact in all 4 extremities NEUROLOGICAL: Cranial nerves II-12 are grossly intact. Speech is not dysarthric Assessment and plan: Patient is 73 years old female with past medical history of Parkinson's diseases, hypertension, hypothyroidism presented hospital with sepsis secondary to community acquired pneumonia Sepsis secondary to left sided community-acquired pneumonia Patient had tachycardia and fever on admission with elevated lactic acid and confusion Patient received treatment with IV fluid and antibiotics Community acquired pneumonia Continue treatment with Levaquin Sputum culture Respiratory panel Incentive spirometry Blood culture pending hypertension. 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[employer]er consult in the outpatient settings DVT prophylaxis with Lovenox VS,Fishbone, I+O VS, Fishbone, I+O Laboratory Tests 11/03/18 20:01 Red Blood Count 4.12, Mean Corpuscular Volume 88.1, Mean Corpuscular Hemoglobin 29.1, Mean Corpuscular Hemoglobin Concent 33.1, Red Cell Distribution Width 15.6 H, Neutrophils (%) (Auto) 84.3 H, Lymphocytes (%) (Auto) 7.2 L, Monocytes (%) (Auto) 7.9 H, Eosinophils (%) (Auto) 0.0, Basophils (%) (Auto) 0.2, Neutrophils # (Auto) 7.9, Lymphocytes # (Auto) 0.7 L, Monocytes # (Auto) 0.7, Eosinophils # (Auto) 0.0, Basophils # (Auto) 0.0 11/03/18 21:08 11/04/18 05:11 Red Blood Count 3.79 L, Mean Corpuscular Volume 86.3, Mean Corpuscular Hemoglobin 28.5, Mean Corpuscular Hemoglobin Concent 33.0, Red Cell Distribution Width 15.6 H, Calcium Level 8.3 L Vital Signs Date Time Temp Pulse Resp B/P (MAP) Pulse Ox O2 Delivery O2 Flow Rate FiO2 11/04/18 12:00 97.3 67 20 99/54 (69) 93 11/03/18 19:29 Room Air I&O- Last 24 Hours up to 6 AM 11/04/18 06:00 Intake Total 650 ml Output Total 200 ml Balance 450 ml MORE COLLINS DO Nov 04, 2018 13:35
[2018-11-04] MEDS ORDERED: LevoFLOXacin IV 750 MG in IV 1 EA IV SCH (21:00)
[2018-11-05] VITALS: BP 137/63
[2018-11-05] MEDS: BENZONATATE 100 MG CAP PO SCH ×2 (00:20→08:43)
[2018-11-05] MEDS: ACETAMINOPHEN 650MG ER TAB (TYLENOL ARTHRITIS) PO PRN (00:21)
[2018-11-05 04:00] VITALS: BP 110/55
[2018-11-05] MEDS: LEVOTHYROXINE 112MCG TABLET (0.112MG) PO SCH (05:31)
[2018-11-05 08:00] VITALS: BP 136/60
[2018-11-05 08:26] LABS: HEMOGLOBIN 10.7 g/dl (12.0-15.5); MEAN CORPUSCULAR HEMOGLOBIN 28.8 pg (27.0-33.0); MEAN CORPUSCULAR HGB CONC 33.4 g/dl (32.0-36.5); PLATELET COUNT, AUTOMATED 209 10^3/uL (150-450); RED BLOOD COUNT 3.72 10^6/uL (4.00-5.40); WHITE BLOOD COUNT 5.5 10^3/uL (4.0-10.0)
[2018-11-05] MEDS: ENOXAPARIN 40 MG/0.4 ML SYRINGE (J1650) SC SCH (08:38)
[2018-11-05 08:43] VITALS: BP 136/60
[2018-11-05] MEDS: VERAPAMIL 120 MG SR TAB PO SCH (08:43)
[2018-11-05] MEDS: DULoxetine 30 MG CAP (CYMBALTA) PO SCH (08:43)
[2018-11-05] MEDS: SINEMET 25-100 MG TAB PO SCH (08:43)
[2018-11-05] MEDS: ASPIRIN 81 MG ENTERIC TAB PO SCH (08:43)
[2018-11-05] MEDS: ALLOPURINOL 100 MG TAB PO SCH (08:44)
[2018-11-05] MEDS: MAGNESIUM OXIDE 400 MG TAB (MAG-OX) PO SCH (08:44)
[2018-11-05] MEDS: FUROSEMIDE 20 MG TAB PO SCH (08:44)
[2018-11-05] MEDS: FERROUS SULFATE 325MG TAB PO SCH (08:44)
[2018-11-05] MEDS: ATORVASTATIN 20 MG TAB PO SCH (08:44)
[2018-11-05 08:47] LABS: BLOOD UREA NITROGEN 15 MG/DL (7-18); CARBON DIOXIDE LEVEL 28 MEQ/L (21-32); CHLORIDE LEVEL 105 MEQ/L (98-107); CREATININE FOR GFR 0.91 MG/DL (0.55-1.30); GLOMERULAR FILTRATION RATE > 60.0 (>39); GLUCOSE, FASTING 79 MG/DL (70-100); POTASSIUM SERUM 3.8 MEQ/L (3.5-5.1); SODIUM LEVEL 140 MEQ/L (136-145)
[2018-11-05] MEDS ORDERED: LEVA750T7 PO (10:21)
[2018-11-05 12:00] VITALS: BP 100/65
--- NOTE | 2018-11-05 16:11 | DS.PDOC ---
Discharge Summary General Date of Admission Nov 03, 2018 at 22:53 Date of Discharge 11/05/18 Discharge Summary PROCEDURES PERFORMED DURING STAY: None ADMITTING DIAGNOSES: Sepsis secondary to left sided community-acquired pneumonia hypertension Community acquired pneumonia Parkinson's / unsteady gait, uses a walker Hypothyroidism Gout Obesity DISCHARGE DIAGNOSES: Sepsis secondary to left sided community-acquired pneumonia hypertension Community acquired pneumonia Parkinson's / unsteady gait, uses a walker Hypothyroidism Gout Obesity COMPLICATIONS/CHIEF COMPLAINT: Pneumonia, Sepsis. HISTORY OF PRESENT ILLNESS:This is a 73-year-old female who was brought to the ED by her son who found her on the floor. At the time she was confused, had defecated on herself and had previously urinated on the bed. It's unclear how she got on the floor. She doesn't remember what happened earlier on in the day, or how she got to the hospital. She is aware that she is at the hospital but was not able to name the month. According to her son, the patient hadn't been feeling well yesterday, and didn't eat much. She has had a dry cough, shortness of breath, and fever. She denies having chills, denies having abdominal pain, denies having constipation, denies having diarrhea, and denies having muscle aches. According to her son, her weight has been stable. Per discussion with the ED provider when she arrived, she was not able to provide any history, had a fever, and her chest x-ray showed a left-sided infiltrate. She received Levaquin and IV fluids. HOSPITAL COURSE: During hospital course following issue addressed Sepsis secondary to left sided community-acquired pneumonia Patient had tachycardia and fever on admission with elevated lactic acid and confusion Patient received treatment with IV fluid and Levaquin Community acquired pneumonia Levaquin Incentive spirometry Blood culture negative, respiratory panel negative hypertension. Home antihypertensive medications Parkinson's / unsteady gait, uses a walker Resume home meds Hypothyroidism Plan: Resume home meds Gout Plan: Resume home meds Obesity - if BMI > 31 Director Script consult in the outpatient settings DISCHARGE MEDICATIONS: Please see below. ALLERGIES: Please see below. PHYSICAL EXAMINATION ON DISCHARGE: VITAL SIGNS: Please see below. GENERAL APPEARANCE: Well-nourished, well-developed, not in apparent distress HEENT: Normocephalic, atraumatic. Mucous members moist and pink CARDIOVASCULAR: Regular rate and rhythm. No murmurs, rubs or gallops. Radial pulses are intact. There is no lower extremity edema LUNGS: . Diminished lung sounds, scattered lung sounds on the left side ABDOMEN: Bowel sounds are hypoactive. Abdomen is soft and nontender. MUSCULOSKELETAL: Range of motion is intact in all 4 extremities NEUROLOGICAL: Cranial nerves II-12 are grossly intact. Speech is not dysarthric LABORATORY DATA: Please see below. IMAGING: Comparison 07/06/2018, 06/26/2018. Findings. Lungs are well inflated, There are diffuse patchy infiltrates in the left lower lobe seen lateral to the left heart border. The right lung was clear. No gross effusion. The heart, mediastinal and hilar contours grossly intact. The aorta mildly tortuous but without gross aneurysm. Airway intact. Bones with some minor degenerative changes in the spine and shoulders. Impression: 1. Left lower lobe patchy pneumonia. No effusion. PROGNOSIS: Favorable ACTIVITY: As tolerated DIET: Cardiac DISCHARGE PLAN: Home with follow-up with PCP DISPOSITION: 06 Home Health Service. DISCHARGE INSTRUCTIONS: 1. Continue incentive spirometry DISCHARGE CONDITION: Stable TIME SPENT ON DISCHARGE: Greater than 20 min minutes. Vital Signs/I&Os Vital Signs Date Time Temp Pulse Resp B/P (MAP) Pulse Ox O2 Delivery O2 Flow Rate FiO2 11/05/18 12:00 97.6 72 18 100/65 (77) 97 11/03/18 19:29 Room Air I&O- Last 24 Hours up to 6 AM 11/05/18 06:00 Intake Total 1340 ml Output Total 150 ml Balance 1190 ml Laboratory Data Labs 24H Laboratory Tests 2 11/05/18 07:58: Nucleated Red Blood Cells % (auto) 0.0, Anion Gap 7L, Glomerular Filtration Rate > 60.0, Blood Urea Nitrogen 15, Creatinine 0.91, Sodium Level 140, Potassium Level 3.8, Chloride Level 105, Carbon Dioxide Level 28, Calcium Level 9.0 CBC/BMP Laboratory Tests 11/05/18 07:58 Red Blood Count 3.72 L, Mean Corpuscular Volume 86.0, Mean Corpuscular Hemoglobin 28.8, Mean Corpuscular Hemoglobin Concent 33.4, Red Cell Distribution Width 15.5 H, Calcium Level 9.0 Microbiology Microbiology 11/04/18 Respiratory Virus Panel (PCR) (ELIZA) - Final, Complete 11/04/18 Urine Culture, Received Pending 11/04/18 Gram Stain - Final, Resulted 11/04/18 Sputum Culture, Resulted Pending 11/03/18 Blood Culture - Preliminary, Resulted No growth after 24 hours . All specim... Discharge Medications Scheduled Allopurinol (Allopurinol) 100 Mg Tablet, 100 MG PO BID, (Reported) Aspirin (Aspirin EC) 81 Mg Tablet.dr, 81 MG PO DAILY, (Reported) Atorvastatin Calcium (Atorvastatin Calcium) 20 Mg Tablet, 20 MG PO DAILY, (Reported) Carbidopa/Levodopa (Carbidopa-Levodopa 25-100 Tab) 1 Each Tablet, 2 TAB PO TID, (Reported) Cholecalciferol (Vitamin D3) (Vitamin D3) 400 Unit Capsule, 800 UNIT PO DAILY, (Reported) Duloxetine Hcl (Duloxetine HCl) 30 Mg Capsule.dr, 30 MG PO DAILY, (Reported) Ferrous Sulfate (Ferrous Sulfate) 325 Mg Tablet, 325 MG PO BID, (Reported) Furosemide (Furosemide) 20 Mg Tablet, 20 MG PO DAILY, (Reported) Levofloxacin (Levaquin) 750 Mg Tablet, 1 TAB PO DAILY Levothyroxine Sodium (Levothyroxine Sodium) 112 Mcg Tablet, 112 MCG PO DAILY, (Reported) Lisinopril (Lisinopril) 20 Mg Tablet, 20 MG PO QHS, (Reported) Magnesium Oxide (Magnesium Oxide) 400 Mg Tablet, 800 MG PO BID, (Reported) Multivitamin (Tab-A-Amy) 1 Each Tablet, 1 TAB PO DAILY, (Reported) Verapamil Hcl (Verapamil ER) 240 Mg Tablet.er, 240 MG PO DAILY, (Reported) Scheduled PRN Acetaminophen (Acetaminophen) 325 Mg Tablet, 650 MG PO Q4H PRN for PAIN, (Reported) Allergies Coded Allergies: Penicillins (Verified Allergy, Unknown, SWELLING, 06/23/18) MORE COLLINS DO Nov 05, 2018 16:11
[2018-11-06] MEDS ORDERED: PNEUMOCOCCAL VACCINE 0.5ML SYRINGE(90732) PNEUMOVAX 23 IM ONE (09:00)
[2018-11-06] MEDS ORDERED: FLUBLOK(EGG FREE)(QUAD)INFLUENZA VACC 0.5ML SYRINGE (90682)18YRS&OLDER IM ONE (09:00)
[2018-11-08 00:10] LABS: BODY FLUID CULTURE Not Indicated (.); LEGIONELLA ANTIGEN URINE Negative (Negative); ORGANISM ID Not indicated. (.); SPECIMEN SOURCE Urine (.); URINE STREP PNEUMONIAE ANTIGEN Negative (Negative)
== END 2018-11-05 13:45 | disposition home health service (06) | DRG 871 ==
LOC: M ED 19:27 → M ED INP 22:53 → M PCU 11-04 00:34
PROVIDERS: ADMIT Internal Medicine; ATTEND Internal Medicine
DX: A41.9 Sepsis, unspecified organism (principal); J18.9 Pneumonia, unspecified organism; E03.9 Hypothyroidism, unspecified; M10.9 Gout, unspecified; E66.9 Obesity, unspecified; G20 Parkinson's disease; I10 Essential (primary) hypertension; Z68.31 Body mass index [BMI] 31.0-31.9, adult; R26.89 Other abnormalities of gait and mobility; Z79.82 Long term (current) use of aspirin; Z79.899 Other long term (current) drug therapy; Z88.0 Allergy status to penicillin

== ENCOUNTER → 2018-11-21 | Outpatient (CLI) | payer MEDICARE ==
[~2018-11-21] MED LIST changes: +ASPI81TA24 PO; +CVS400CA PO; +FERR1TAB8 PO; +FURO20TA2 PO; +LEVA750T7 PO; +MAGN400T3 PO; +TAB-TAB3 PO
[2018-11-21 08:32] LABS: HEMATOCRIT 36.1 % (36.0-47.0); HEMOGLOBIN 11.5 g/dl (12.0-15.5); MEAN CORPUSCULAR HEMOGLOBIN 28.6 pg (27.0-33.0); MEAN CORPUSCULAR HGB CONC 31.9 g/dl (32.0-36.5); MEAN CORPUSCULAR VOLUME 89.8 fl (80.0-96.0); PLATELET COUNT, AUTOMATED 292 10^3/uL (150-450); RED BLOOD COUNT 4.02 10^6/uL (4.00-5.40); WHITE BLOOD COUNT 5.2 10^3/uL (4.0-10.0)
--- NOTE | 2018-11-21 08:38 | REP ---
Two-view chest: 12/22/2018. Indication: Preoperative assessment. Comparison: 11/03/2018. Findings: The previously described left lower lobe pneumonia has resolved. No new infiltrates are present. No significant pleural effusion or pneumothorax are present. Cardiac silhouette is normal in size. Impression: No acute cardiopulmonary process. Resolution of the previously described left lower lobe pneumonia. Electronically Signed by Andrew Liriano DO 11/21/2018 08:29 A
[2018-11-21 08:59] LABS: ALBUMIN 3.1 GM/DL (3.2-5.2); ALT/SGPT 18 U/L (12-78); BILIRUBIN,TOTAL 0.7 MG/DL (0.2-1.0); BLOOD UREA NITROGEN 15 MG/DL (7-18); CALCIUM LEVEL 9.2 MG/DL (8.8-10.2); CARBON DIOXIDE LEVEL 33 MEQ/L (21-32); CHLORIDE LEVEL 103 MEQ/L (98-107); CREATININE FOR GFR 0.92 MG/DL (0.55-1.30); GLOMERULAR FILTRATION RATE > 60.0 (>39); GLUCOSE, FASTING 87 MG/DL (70-100); POTASSIUM SERUM 4.3 MEQ/L (3.5-5.1); SODIUM LEVEL 139 MEQ/L (136-145); TOTAL PROTEIN 7.2 GM/DL (6.4-8.2)
--- NOTE | 2018-11-21 12:03 | ECGEPIP ---
[facility] Test Date: 2018-11-21 Pat Name: NAWAF CHERRY Department: Room: - Gender: Female Record Maker: BEKAH : [id number] Requested By: MONIQUE HENLEY Order Number: [id number] Reading MD: Carmita Washburn Measurements Intervals Manter Rate: 71 P: 65 ND: 173 QRS: 71 QRSD: 95 T: 34 QT: 366 QTc: 400 Interpretive Statements SINUS RHYTHM WITH MARKED SINUS ARRHYTHMIA LOW QRS VOLTAGE IN PRECORDIAL LEADS NEW PRIOR WITH Q WAVE aFV PRWP c/w 06/23/18 Electronically Signed on 11-21-2018 12:03:37 EDT by Carmita Washburn
== END ==
LOC: M LAB 07:42
PROVIDERS: ATTEND Family Medicine
DX: Z01.818 Encounter for other preprocedural examination (principal)

== ENCOUNTER 2018-12-03 08:39 | Inpatient (IN) | payer MEDICARE ==
--- NOTE | 2018-11-29 16:16 | HPE ---
DATE OF ADMISSION: 12/03/2018 HISTORY OF PRESENT ILLNESS: This is a pleasant 73-year-old female with continuing balance issues, neck discomfort, multifactorial gait disturbance, cervical stenosis and myelopathy. The patient has consented for cervical laminectomy with a posterior approach per Dr. Matt Leo. Medical optimization was completed on 11/27/2018. I am still awaiting documentation stating she is clear. The patient reports Dr. Bermudez said she is optimized. X-ray and MRI are consistent with cervical stenosis and myelopathy. ALLERGIES: - PENICILLIN MEDICATIONS: - lisinopril 20 mg one by mouth every day - Verapamil HCl 240 mg 1 tablet in the morning with food - allopurinol 100 mg three by mouth every day - aspirin 81 mg one by mouth every day - magnesium oxide mg 4 mg 2 tablets by mouth two daily - Lipitor 20 mg one by mouth every day - Cymbalta 30 mg one by mouth every day 1 week and then two by mouth daily thereafter - Iron 325 (65 fe) one by mouth every other day - vitamin D 400 units/m - levothyroxine sodium 112 mcg one by mouth every day - multivitamin - Lasix 20 mg one by mouth every day - carbidopa/levodopa 25/100 mg - Percocet was ordered 5/325 mg 1-2 tablets every 4-6 hours p.r.n. pain after surgery MEDICAL PROBLEMS LIST: Includes multifactorial gait disturbance, cervical spine pain, cervical stenosis and cervical myelopathy, Sjogren syndrome, hypothyroidism, hypertension, osteoarthritis, lumbago, gout, diverticulosis, nonfunctioning left kidney resection age 9, migraines, and SICCA syndrome. PAST SURGICAL HISTORY: Cholelithiasis, upper endoscopy, and breast lumpectomy. FAMILY HISTORY: Hypertension, osteoarthritis, cancer. SOCIAL HISTORY: Denies smoking, ethanol intake or illicit drugs. REVIEW OF SYSTEMS: She denies shortness of breath, dyspnea on exertion, fever, chills, malaise, upper respiratory or urinary tract symptoms. LABS: Reviewed via [employer] service date 11/21/2018. HGB was 11.5, MCHC 31.9, RDW 16.1, CO2 33, anion gap 3, alkaline phosphatase 178, albumin 3.1, albumin-globulin ratio 0.76, otherwise unremarkable. Chest x-ray no acute cardiopulmonary process. Resolution of previously described left lower lobe pneumonia as read by Rommel Hightower DO. EKG sinus rhythm with marked sinus arrhythmia, low QRS voltage in precordial leads which is new, prior with Q-wave, AFW, as read by Dr. Mujica. PHYSICAL EXAMINATION: Height 64 inches, weight 176, temperature 97.9, BP 140/79, pulse 62, respirations 14. She is a pleasant well-developed, well-nourished, overweight, 73-year-old female in no acute distress. Alert and oriented times three. Mood and affect are appropriate. She ambulates with a cane in hand for balance. She moves slowly during her gait in order to maintain balance. Normocephalic. Neck: No gross deformities. Cervical range of motion is with stiffness and discomfort. Lungs: Clear to auscultation. Chest: Regular rate and rhythm. Bowel sounds times four, soft, nontender. Of note, skin is intact. Benign noninfectious looking in all for extremities, including her cervical spine region. IMPRESSION: 1. Cervical stenosis, myelopathy and gait imbalance. 2. The patient consented for surgical cervical posterior laminectomy per Dr. Matt Leo. 3. Medical optimization per Dr. Sherwin Bermudez. 4. db2 systems programmer to operating room (OR) 600 mg IV clindamycin per PCN allergy. 5. db2 systems programmer to OR, sequential compression device (SCD) and thromboembolic deterrent (JAIMIE) stockings. ADDENDUM: I was able to obtained Dr. Bermudez's medical clearance from 11/27/2018 and he noted she should be considered optimized and medically cleared for surgery. [facility]
[~2018-12-03] VITALS: Ht 162.6 cm; Wt 80.6 kg
[~2018-12-03 08:39] MED LIST changes: +LIDOCAINE 1% MDV 20ML VIAL SQ PRN; +LR 1,000 ML IV ONE; +PERCOCET 5MG/325MG TAB PO ONE; +VANCOMYCIN HCL 1,000 MG, VIAL MATE ADAPTER 1 EACH in D5W 250 ML IV ONE; +methylPREDNISolone 250 MG in D5W 50 ML IV ONE
[2018-12-03] MEDS ORDERED: VANCOMYCIN HCL 1,000 MG, VIAL MATE ADAPTER 1 EACH in D5W 250 ML IV ONE ×2 (09:45→23:00)
[2018-12-03] MEDS ORDERED: THROMBIN SOLN 20,000 UNITS KIT As Ordered ONE (11:07)
[2018-12-03] MEDS ORDERED: BACITRACIN PWD 50,000 UNITS VIAL As Ordered ONE (11:07)
[2018-12-03] MEDS ORDERED: BUPIVACAINE/EPIN 0.25% 30 ML VIAL As Ordered ONE (11:07)
[2018-12-03] MEDS ORDERED: BUPIVACAINE LIPOSOME/PF 1.3% 20ML VIAL (13.3MG/ML)(EXPAREL)(C9290 PER1MG) As Ordered ONE (11:20)
[2018-12-03] MEDS ORDERED: GLYCOPYRROLATE INJ 0.2 MG/ML 2 ML VIAL As Ordered ONE (12:58)
[2018-12-03] MEDS ORDERED: ROCURONIUM BROMIDE 50 MG/5 ML VIAL As Ordered ONE ×2 (12:58→13:20)
[2018-12-03] MEDS ORDERED: SUGAMMADEX SODIUM 500 MG/5 ML VIAL (BRIDION) As Ordered ONE (12:58)
[2018-12-03] MEDS ORDERED: LIDOCAINE 2% INJ 100 MG/5 ML SDV (FOR ANES.) As Ordered ONE (12:58)
[2018-12-03] MEDS ORDERED: REMIFENTANIL 1MG 3ML VIAL As Ordered ONE (12:58)
[2018-12-03] MEDS ORDERED: MIDAZOLAM INJ 2 MG/2 ML VIAL (J2250) As Ordered ONE (12:58)
[2018-12-03] MEDS ORDERED: PROPOFOL 200 MG/20 ML VIAL As Ordered ONE (12:58)
[2018-12-03] MEDS ORDERED: NEOSTIGMINE 10 MG/10 ML VIAL (J2710) As Ordered ONE (12:58)
[2018-12-03] MEDS ORDERED: dexameTHASONE 4 MG/ML 1ML VIAL (J1100) As Ordered ONE (12:58)
[2018-12-03] MEDS ORDERED: fentaNYL 100 MCG/2 ML INJECTION (J3010) As Ordered ONE (12:58)
[2018-12-03] MEDS ORDERED: PROPOFOL 500 MG/50 ML VIAL As Ordered ONE ×2 (12:58→14:04)
[2018-12-03] MEDS ORDERED: TRANEXAMIC ACID 100 MG/ML 10ML VIAL As Ordered ONE (13:02)
[2018-12-03] MEDS ORDERED: EPINEPHrine INJ 1 MG/ML 1ML AMP As Ordered ONE (13:02)
[2018-12-03] MEDS ORDERED: BUPIVACAINE HCL 0.25% 10 ML VIAL As Ordered ONE (13:02)
[2018-12-03] MEDS ORDERED: ONDANSETRON 4MG/2ML VIAL (J2405) As Ordered ONE (13:25)
[2018-12-03] MEDS ORDERED: MORPHINE 10 MG/ML 1ML VIAL (J2270) As Ordered ONE (14:57)
[2018-12-03] MEDS: SINEMET 25-100 MG TAB PO SCH (16:00)
[2018-12-03] MEDS ORDERED: ONDANSETRON 4MG/2ML VIAL (J2405) IV PRN ×2 (16:30→16:45)
[2018-12-03] MEDS ORDERED: LR 1,000 ML IV SCH (16:30)
[2018-12-03] MEDS ORDERED: MORPHINE 10 MG/ML 1ML VIAL (J2270) IV PRN (16:30)
[2018-12-03] MEDS ORDERED: fentaNYL 100 MCG/2 ML INJECTION (J3010) IV PRN (16:30)
[2018-12-03] MEDS ORDERED: MORPHINE 4 MG/ML 1ML VIAL/SYRINGE (J2270) IV PRN (16:45)
[2018-12-03] MEDS ORDERED: ACETAMINOPHEN TAB 650MG DOSE (2X325MG) PO PRN (16:45)
--- NOTE | 2018-12-03 16:54 | HPEPDOC ---
General Date of Admission Dec 03, 2018 at 08:39 Date of Service: Dec 03, 2018 Attending Physician: LYDIA LERNER MD Chief Complaint The patient is a 73-year-old female admitted with a reason for visit of Cervical Spinal Stenosis. Source: Patient, RN/, Old records Exam Limitations: Other (S/P Cervical Laminectomy in Recovery) Severity: Moderate Associated Symptoms: Other (Pain under pain medication) History of Present Illness Consultation received from orthopedic surgeon Dr. Kay, for medical hospitalist team to perform physical exam for medical clearance. 73 year old elderly female seen today in her hospital room on , status post operative cervical laminectomy performed by Dr. Kay earlier this afternoon. She is laying supine in her hospital room in semi-Kaur's position, 45 angle, denying she is in pain at this time. She is able to wiggle her toes bilateral lower extremities, raise both arms without any drifting, bilateral hands have strong egg processor. She is alert and awake and oriented 2, thought processes were little sluggish. This could be due to the anesthesia and pain medication on board at this time. She has significant medical history of nonfunctioning left kidney resection at age 9, sicca syndrome, cervical myelopathy, cervical stenosis, cervical spine pain, gait disturbance, lumbar low, gout, essential hypertension, hypothyroidism, diverticulitis, migraine headaches, osteoarthritis, fibromyalgia, cataracts, breast cancer with lumpectomy, CVA and pneumonia in October 2018. Home Medications Scheduled Allopurinol (Allopurinol) 100 Mg Tablet, 100 MG PO BID, (Reported) Aspirin (Aspirin EC) 81 Mg Tablet.dr, 81 MG PO DAILY, (Reported) Atorvastatin Calcium (Atorvastatin Calcium) 20 Mg Tablet, 20 MG PO DAILY, (Reported) Carbidopa/Levodopa (Carbidopa-Levodopa 25-100 Tab) 1 Each Tablet, 2 TAB PO TID, (Reported) Cholecalciferol (Vitamin D3) (Vitamin D3) 400 Unit Capsule, 800 UNIT PO DAILY, (Reported) Duloxetine Hcl (Duloxetine HCl) 30 Mg Capsule.dr, 30 MG PO DAILY, (Reported) Ferrous Sulfate (Ferrous Sulfate) 325 Mg Tablet, 325 MG PO DAILY, (Reported) Furosemide (Furosemide) 20 Mg Tablet, 20 MG PO DAILY, (Reported) Levothyroxine Sodium (Levothyroxine Sodium) 112 Mcg Tablet, 112 MCG PO DAILY, (Reported) Lisinopril (Lisinopril) 20 Mg Tablet, 20 MG PO QHS, (Reported) Magnesium Oxide (Magnesium Oxide) 400 Mg Tablet, 800 MG PO BID, (Reported) Multivitamin (Tab-A-Amy) 1 Each Tablet, 1 TAB PO DAILY, (Reported) Verapamil Hcl (Verapamil ER) 240 Mg Tablet.er, 120 MG PO DAILY, (Reported) Scheduled PRN Acetaminophen (Acetaminophen) 325 Mg Tablet, 650 MG PO Q4H PRN for PAIN, (Reported) Allergies Coded Allergies: Penicillins (Verified Allergy, Severe, SWELLING, 12/03/18) Past Medical History Medical History See HPI Surgical History Thyroidectomy, hysterectomy, ear surgery, hand surgery, left breast biopsy and lumpectomy, cataract surgery, upper GI, left nephrectomy, ages 9, due to nonfunctioning kidney Family History Significant Family History: Cancer, Hypertension, Other (osteoporosis) Social History * Smoker: Denies Alcohol: occationally (special occasions) Drugs: prescription drugs Recent Travel/Sick Contacts: Denies: Recent travel, Recent sick contacts Psychosocial History: Anxiety, Nicolás SI and HI A-FIB/CHADSVASC A-FIB History Current/History of A-Fib/PAF?: No Review of Systems Constitutional: Reports: Fatigue; Denies: Chills, Fever, Malaise, Night Sweats, Weakness, Weight Loss, Lethargy, Other Eyes: Denies: Pain, Vision change, Conjunctivae inflammation, Eyelid in flammation, Redness, Other ENT: Denies: Head Aches, Ear Pain, Dysphagia, Sinus Congestion, Post Nasal Drip , Sore Throat, Epistaxis, Other Symptoms Skin: Reports: Dry; Denies: Rash, Lesions, Jaundice, Bruising, Itching, Breakdown, Nail Changes, Other Pulmonary: Reports: Cough; Denies: Dyspnea, Pleuritic Chest Pain, Other Symptoms Cardiovascular: Denies: Chest Pain, Palpitations, Orthopnea, Paroxysmal Noc. Dyspnea, Edema, Lt Headedness, Other Symptoms Gastrointestinal: Denies: Nausea, Vomiting, Abdominal Pain, Diarrhea, Co nstipation, Melena, Hematochezia, Other Symptoms Genitourinary: Denies: Dysuria, Frequency, Incontinence, Hematuria, Retention, Other Symptoms Hematologic: Denies: Bruising, Bleeding Excessively, Petecchia, Purpura, Enlarged Lymph Nodes, Other Hematologic Endocrine: Denies: Polydipsia, Polyphagia, Polyuria, Heat Intolerance, Cold Intolerance, Other Endocrine Sx Musculoskeletal: Reports: Neck Pain, Joint Pain (neck tolerable); Denies: Back Pain, Shoulder Pain, Arm Pain, Hand Pain, Leg Pain, Foot Pain, Muscle Pain, Spasms, Other Symptoms Neurological: Denies: Weakness, Numbness, Incoordination, Change in speech, Confusion, Seizures, Other Symptoms Psych: Reports: Anxiety, Memory Issues; Denies: Mood Normal, Depression, Thoughts of Self Harm, Anger, Thoughts of Harming Other, Other Psych Physical Examination General Exam: Positive: Alert, Cooperative, Mild Distress (due to mild confusion, trying to remember, and medication schedule, health conditions. When asked) Eye Exam: Positive: PERRLA, Conjunctiva & lids normal, EOMI, Sclera icteric ENT Exam: Positive: Atraumatic, Mucous membr. moist/pink, Pharynx Normal Neck Exam: Positive: Supple, +2 carotid pulse wo bruit, Other (decreased range of motion) Chest Exam: Positive: Diminished (right base, low) Heart Exam: Positive: Rate Normal, Regular Rhythm, Normal S1, Normal S2 Abdomen Exam: Positive: Normal bowel sounds, Soft Extremity Exam: Positive: Tenderness (left temporal and parietal lobe) Neuro Exam: Positive: Normal Speech, Cranial Nerves 3-12 NL Psych Exam: Positive: Anxiety, Other (oriented 2) Vital Signs Vital Signs Date Time Temp Pulse Resp B/P (MAP) Pulse Ox O2 Delivery O2 Flow Rate FiO2 12/03/18 16:30 77 18 157/93 (114) 100 Nasal Cannula 2 12/03/18 16:15 97.2 Problems (1) Status post laminectomy Status: Acute Response to Treatment: Progressing Discussed With: Patient Problem Specific Plan: Monitor Clinically Problem Text: 73 year old elderly female seen today in her hospital room on , status post operative C3, C4, C5, and C6 in prone position cervical laminectomy performed by Dr. Kay earlier this afternoon. She is laying supine in her hospital room in semi-Kaur's position, 45 angle, denying she is in pain at this time. Patient states she has gone swallowing pills to get stuck in her throat, she uses takes her medications with applesauce. Cervical post-laminectomy C3, C4, C5, C6-acute Plan Continue to follow orthopedic surgery recommendationvancomycin IV and: Zofran 4 mg IV every 4 hours as needed for nausea, vomiting, No stooping and are heavy lifting, no bending over Monitor airway Monitor painmorphine for pain as needed; Percocet, Tylenol extra ordered Incentive spirometer 10 times every hour to decrease risk of pneumonia. Patient recently got over illness in October 2018. Breath sounds mildly diminished and lower lobes. Post operative Essential hypertension Continue taking lisinopril 20 mg daily, verapamil 240 daily, frusemide 20 mg a day Hypothyroidism, chronic Continue taking levothyroxine Check TSH level Dyslipidemia.Chronic Continue taking atorvastatin 20 mg by mouth at time Gouty arthritis.Chronic Continue taking allopurinol 100 mg by mouth twice a day Vitamin D deficiencychronic continue taking vitamin D 400 IUs daily, Os-Elliott with vitamin D. Continue home medication. Constipation, chronic. Continue taking Metamucil twice a day initiate bowel regimen Parkinson's diseasechronic Continue carbidopa levodopa. Prognosis: Good DVT prophylaxis: JAIMIE robles, alternating with SCD sequentials, bilateral lower legs Discharge: Pending Plan / VTE VTE Prophylaxis Ordered?: Yes VTE Exclusion Mechanical Proph: N/A:VTE Prophy Ordered VTE Exclusion Pharmacological: Bleeding Risk Plan IVF: Continue Diet: Continue Current Activity: Continue Current Medications: Bowel Regimen Diagnostics: Check Labs, Repeat Labs in AM Advanced Directives: Health Care Proxy (HCP) (son, Juanjose Trimble [phone]) OTTO RICHEY Dec 03, 2018 16:54
[2018-12-03 17:00] VITALS: BP 158/84
--- NOTE | 2018-12-03 17:13 | REP ---
Cross-table lateral cervical spine: Two views. History: Intraoperative imaging. Partial C3-C6 laminectomy. Two portable cross-table lateral views of the cervical spine are presented time stamped at 01:14 p.m. and 02:42 p.m.. The 01:14 p.m. radiograph demonstrates orotracheal and oral esophageal tubes. There are two metallic intraoperative probe like devices projecting at the C4 level. The radiograph time stamped 02:42 p.m. demonstrates an intraoperative probe projecting at the C3 level. Electronically Signed by Giacomo Bhatti MD 12/04/2018 07:48 A
[2018-12-03 17:30] VITALS: BP 159/77
--- NOTE | 2018-12-03 18:08 | RO ---
DATE OF PROCEDURE: 12/03/2018 PREOPERATIVE DIAGNOSIS: Cervical spinal stenosis with myelopathy C3-4, C4-5, C5-6. POSTOPERATIVE DIAGNOSIS: Cervical spinal stenosis with myelopathy C3-4, C4-5, C5-6. PROCEDURE PERFORMED: Placement of Inman tongs and removal of Inman tongs, cervical laminectomy of C3 additional level cervical laminectomy C4 additional level cervical laminectomy C5 additional level cervical laminectomy C6. SURGEON: Dr. Matt Leo CERTIFIED TUMOR REGISTRAR: Edilberto Reeder, physician sales and marketing assistant. ANESTHESIA: General. ESTIMATED BLOOD LOSS: Less than 100 mL replaced with crystalloid. COMPLICATIONS: None. Also neuromonitoring was utilized for this surgical procedure because the patient has severe stenosis presence of myelopathy to allow for safe positioning. INDICATIONS: MRI and CT scan evidence of cervical myelopathy posterior longitudinal ligament calcification spanning C3 through C5-6. Consent reviewed in detail with the patient included a discussion of procedure to be performed, alternatives including doing nothing, risks including but not limited to pain, failure to improve, paralysis, worsening of condition, bleeding blood clots and other medical issues. The patient agreed to proceed with surgery. OPERATIVE COURSE: Identified in the holding area. Site and side verified brought to the operating room. Anesthesia was administered, neuromonitoring leads were applied by the neuromonitoring field evidence technician. Once this was accomplished, the patient's head was prepped for the Inman tongs. Inman tongs were installed by myself. I applied three bars of torque to the Inman tongs. The Inman tongs fit appropriately. The double pin was on the patient's left and single pin on the patient's right. Next, once I had applied the Inman tongs, we gently log-rolled the patient to the hospital bed. I controlled the head during this maneuver. We secured the Inman tongs to the patient's hospital bed and we used silk tape to tape the patient to the bed secure her at the shoulders. Next room once I and the manager urgent care were comfortable with the patient's positioning we then checked neuromonitoring there is no change in the neuromonitoring potentials. She was then sterilely prepped, draped usual fashion for exposure of the cervical spine for laminectomy posteriorly. Next we began the case. Mr. Reeder stood initially on the patient's right and I on the patient's left but I did alternate through the course of the case. Next the line of the incision was based on palpation of the spinous processes and infiltrated with 0.25% Marcaine with epinephrine. I made the incision using the 10 blade knife developed down through skin subcuticular tissues. The dissection continued through the nuchal ligament to the spinous processes posteriorly. Dissection continued to the left exposing the C4 and C5 lamina. I drilled a divot to emmett the C4 lamina. I placed a Abhijit Estradaey retractor under the facette at C4 and a Donald clamp over the spinous process. We obtained a cross-table lateral x-ray to verify our levels. Next the dissection continued exposing the C3 lamina superiorly in the C6 lamina inferiorly out over the facet complexes. Next the contralateral dissection was accomplished by myself again from the C3 lamina of C6 lamina. Once this was accomplished I removed the spinous processes of 4, 5, and top of 6 using [place]. Plugged the remaining bone with wax. I removed the inferior C3 spinous process. Next, once this was accomplished I utilized the high-speed bur to bur a trough at the medial border of the facette lamina on the patient's left side down to the ligamentum flavum from C3-C6. I removed the superior portion of the C6 lamina using the high-speed bur and inferior portion of the C3 lamina using the high-speed bur then I switched sides and on the patient's right side. I drilled the similar drop from C3 through C6. Once this was accomplished I was able to remove the ligament. The lamina using a #1 Kerrisons to cut the lateral aspect of the ligamentum flavum and elevate it. The thecal sac was appreciated to displace significantly posteriorly. Next, bleeding was controlled using bipolar cautery as well as thrombin Gelfoam. Next, I undercut the C3 lamina further using #2 and 3 Kerrisons at C3 and I removed to remaining C6 lamina by undercutting using the #2 Kerrisons. Next the wound was inspected for adequate decompression. I obtained a second cross-table lateral with a probe under the C3 lamina at the lateral aspect of the laminectomy at the medial aspect of the facette complex. This was to emmett close but not quite to the proximal aspect of the laminectomy/superior aspect of laminectomy. Next, once this was accomplished I irrigated the wound including irrigation with TXA solution which was allowed stand per minute for hemostasis and then evacuated. Once this was accomplished all retractors were removed the wound was inspected and the posterior fascia was reapproximated with interrupted stitch nuchal ligament reapproximated with interrupted stitch deep dermis approximated with interrupted stitch. Pernio dressing was applied. This patient did receive the perioperative dose of steroid. This patient also received perioperative antibiotics, vancomycin. Next I was present to move the patient back to the hospital bed. I controlled the Inman tongs. Once the patient was carefully log-rolled to the hospital bed. I removed the Inman tongs inspected the pin sites which appeared to be acceptable. No active bleeding. Next the patient was able to be extubated and moved to the recovery room in good condition. Prior to extubation neuromonitoring after the flip reflected no change in neuromonitoring potentials. Mr. Reeder was present participated throughout the course of this case.
[2018-12-03] MEDS ORDERED: IPRATROPIUM 0.5MG/ALBUTEROL 2.5MG INH SOL UD 3ML (DUONEB)(J7620) NEB PRN (18:15)
[2018-12-03] MEDS: PERCOCET 5MG/325MG TAB PO PRN ×2 (18:59→23:10)
[2018-12-03 19:00] VITALS: BP 158/78
[2018-12-03 20:00] VITALS: BP 154/82
[2018-12-03] MEDS: ALLOPURINOL 100 MG TAB PO SCH (20:48)
[2018-12-03] MEDS: METAMUCIL (PSYLLIUM) PACKET PO SCH (20:48)
[2018-12-03] MEDS: LISINOPRIL 20 MG TAB PO SCH (20:48)
[2018-12-03] MEDS: MAGNESIUM OXIDE 400 MG TAB (MAG-OX) PO SCH (20:48)
[2018-12-03 21:00] VITALS: BP 156/86
[2018-12-03 22:00] VITALS: BP 160/85
[2018-12-04 02:07] VITALS: BP 149/70
[2018-12-04] MEDS: PERCOCET 5MG/325MG TAB PO PRN ×2 (05:47→20:50)
[2018-12-04 06:00] VITALS: BP 153/81
[2018-12-04] MEDS ORDERED: PERC5TAB12 PO (06:11)
[2018-12-04 07:20] LABS: GLOMERULAR FILTRATION RATE 58.2 (>39); MAGNESIUM LEVEL 1.7 MG/DL (1.8-2.4); POTASSIUM SERUM 4.3 MEQ/L (3.5-5.1)
[2018-12-04] MEDS ORDERED: MAG SULF 1GM/100ML (MAG RUN) 1 GM in IV 1 EA IV ONE (07:45)
[2018-12-04] MEDS: METAMUCIL (PSYLLIUM) PACKET PO SCH ×2 (09:29→20:48)
[2018-12-04] MEDS: DULoxetine 30 MG CAP (CYMBALTA) PO SCH (09:30)
[2018-12-04] MEDS: VERAPAMIL 120 MG SR TAB PO SCH (09:30)
[2018-12-04] MEDS: VITAMIN D (CHOLECALCIFEROL) 400 INTERNATIONAL UNITS TAB PO SCH (09:30)
[2018-12-04] MEDS: ALLOPURINOL 100 MG TAB PO SCH ×2 (09:30→20:50)
[2018-12-04] MEDS: SINEMET 25-100 MG TAB PO SCH ×3 (09:30→15:27)
[2018-12-04] MEDS: MAGNESIUM OXIDE 400 MG TAB (MAG-OX) PO SCH ×2 (09:30→20:50)
[2018-12-04] MEDS: ATORVASTATIN 20 MG TAB PO SCH (09:31)
[2018-12-04 10:00] VITALS: BP 133/61
[2018-12-04 14:00] VITALS: BP 130/58
[2018-12-04] MEDS ORDERED: FUROSEMIDE 20 MG TAB PO SCH (14:00)
[2018-12-04] MEDS: LISINOPRIL 20 MG TAB PO SCH (20:50)
[2018-12-04 22:00] VITALS: BP 138/64
[2018-12-05] MEDS: PERCOCET 5MG/325MG TAB PO PRN (03:48)
[2018-12-05 06:00] VITALS: BP 126/59
[2018-12-05 07:58] VITALS: BP 126/60
[2018-12-05] MEDS: VERAPAMIL 120 MG SR TAB PO SCH (07:58)
[2018-12-05] MEDS: SINEMET 25-100 MG TAB PO SCH ×2 (07:58→12:59)
[2018-12-05] MEDS: VITAMIN D (CHOLECALCIFEROL) 400 INTERNATIONAL UNITS TAB PO SCH (07:58)
[2018-12-05] MEDS: DULoxetine 30 MG CAP (CYMBALTA) PO SCH (07:59)
[2018-12-05] MEDS: ATORVASTATIN 20 MG TAB PO SCH (07:59)
[2018-12-05] MEDS: METAMUCIL (PSYLLIUM) PACKET PO SCH (07:59)
[2018-12-05] MEDS: ALLOPURINOL 100 MG TAB PO SCH (07:59)
[2018-12-05] MEDS: MAGNESIUM OXIDE 400 MG TAB (MAG-OX) PO SCH (07:59)
[2018-12-05 08:00] VITALS: BP 126/60
[2018-12-05] MEDS ORDERED: FLUBLOK(EGG FREE)(QUAD)INFLUENZA VACC 0.5ML SYRINGE (90682)18YRS&OLDER IM ONE (09:00)
== END 2018-12-05 13:05 | disposition home or self-care (01) | DRG 516 ==
LOC: M OR 08:39 → M MS5PR 16:50
PROVIDERS: ADMIT Orthopaedic Surgery; ATTEND Orthopaedic Surgery
PROC: 2W60X0Z Traction of Head using Traction Apparatus (ICD-10-PCS; 2018-12-03)
PROC: 0RS Upper Joints, Reposition (ICD-10-PCS; 2018-12-03)
PROC: 0PB30ZZ Excision of Cervical Vertebra, Open Approach (ICD-10-PCS; principal; 2018-12-03 11:00)
DX: M48.02 Spinal stenosis, cervical region (principal); M50.01 Cervical disc disorder with myelopathy, high cervical region; M50.021 Cervical disc disorder at C4-C5 level with myelopathy; M35.00 Sjogren syndrome, unspecified; Z79.899 Other long term (current) drug therapy; M10.9 Gout, unspecified; K57.30 Diverticulosis of large intestine without perforation or abscess without bleeding; I10 Essential (primary) hypertension; M19.90 Unspecified osteoarthritis, unspecified site; E89.0 Postprocedural hypothyroidism

== ENCOUNTER → 2020-03-27 | Outpatient (CLI) | payer MEDICARE ==
[~2020-03-27] MED LIST changes: -LIDOCAINE 1% MDV 20ML VIAL SQ PRN; -LISI-538 PO; +LISI20TA33 PO; -LR 1,000 ML IV ONE; -MAG400TA PO; +MAGN400T35 PO; +PERC5TAB12 PO; -PERCOCET 5MG/325MG TAB PO ONE; -VANCOMYCIN HCL 1,000 MG, VIAL MATE ADAPTER 1 EACH in D5W 250 ML IV ONE; -methylPREDNISolone 250 MG in D5W 50 ML IV ONE
[2020-03-27 10:11] LABS: HEMATOCRIT 41.8 % (36.0-47.0); HEMOGLOBIN 13.4 g/dl (12.0-15.5); MEAN CORPUSCULAR HEMOGLOBIN 30.4 pg (27.0-33.0); MEAN CORPUSCULAR HGB CONC 32.1 g/dl (32.0-36.5); MEAN CORPUSCULAR VOLUME 94.8 fl (80.0-96.0); PLATELET COUNT, AUTOMATED 242 10^3/uL (150-450); RED BLOOD COUNT 4.41 10^6/uL (4.00-5.40); WHITE BLOOD COUNT 5.5 10^3/uL (4.0-10.0)
[2020-03-27 10:47] LABS: ALBUMIN 3.6 GM/DL (3.2-5.2); BILIRUBIN,TOTAL 0.3 MG/DL (0.2-1.0); CALCIUM LEVEL 9.5 MG/DL (8.8-10.2); CHOLESTEROL RISK RATIO 3.019 (<5); CREATININE FOR GFR 0.98 MG/DL (0.55-1.30); FREE T3 2.3 PG/ML (2.2-4.0); FREE T4 1.18 NG/DL (0.76-1.46); GLOMERULAR FILTRATION RATE 59.4 (>39); POTASSIUM SERUM 4.8 MEQ/L (3.5-5.1); THYROID STIMULATING HORMONE 0.676 uIU/ML (0.358-3.740); TOTAL PROTEIN 7.1 GM/DL (6.4-8.2); URIC ACID 4.6 MG/DL (2.6-6.0)
== END ==
LOC: M WUC 08:04
PROVIDERS: ATTEND Family Medicine
DX: E03.9 Hypothyroidism, unspecified (principal); M10.9 Gout, unspecified; I10 Essential (primary) hypertension

== ENCOUNTER → 2020-10-16 | Outpatient (CLI) | payer MEDICARE ==
[~2020-10-16] MED LIST changes: -ACET-908 PO; +ACET-910 PO; +ASPI-569 PO; -ASPI81TAEC PO; -VERA240T3 PO; +VERA240T71 PO
--- NOTE | 2020-10-16 11:49 | REPMRS ---
Patient History The patient states she has not had a clinical breast exam in over a year. Patient is postmenopausal. Family history of breast cancer under age 50 in mother, breast cancer at age 50 or over in maternal aunt, colorectal cancer at age 50 or over in sister, prostate cancer at age 72 in brother. Benign stereotatic breast biopsy of the right breast, April 07, 1989. Patient states no breast complaints today. Patient has signed MRS History Sheet. Digital Woman Screen Mammo: October 16, 2020 - Exam #: [id number] Bilateral CC and MLO view(s) were taken. Technologist: Obdulia Bergman, Technologist Prior study comparison: August 25, 2014, digital woman screen mammo performed at [facility]. July 11, 2013, digital woman screen mammo performed at [facility]. FINDINGS: The breast tissue is heterogeneously dense. This may lower the sensitivity of mammography. Screening. Digital screening (2D) mammography was performed bilaterally in the CC and MLO projections. Additionally, breast tomosynthesis (3D mammography) was performed bilaterally in the CC and MLO projections. Todays exam was compared to the prior exam/exams. By history, the patient has no complaints of a palpable breast abnormality or other significant breast complaints. The breasts are unchanged in size and shape.Once again, dense heterogenous fibroglandular elements are seen bilaterally in a stable appearing pattern but to such a degree that the sensitivity of the mammogram in detecting cancer is decreased. There are no ioana-soft tissue densities or spiculated masses. There is no internal architectural distortion. Once again, stable benign appearing calcifications are seen.There are no suspicious ioana-calcific clusters. Skin thickening or nipple retraction is not present. IMPRESSION: BI-RADS Category 2- Benign Findings. There is no evidence of malignant alteration of the breasts. Followup examination recommended in one year. The [place] volumetric breast density category is C, the breasts are heterogenously dense which may obscure small masses. This mammogram was read with the assistance of Shaniqua JoyceTripleseat,an FDA approved computer aided detection system for mammography. The lifetime Tyrer-Cuzick score is 4.4 % Due to the density of the breasts or Tyrer Cuzick score of 20% or greater, MRI/whole breast screening ultrasound is warranted. Negative x-ray reports should not delay surgical consultation if a dominant or clinically suspicious mass is present. Not all breast cancers can be identified by mammography. Therefore, we recommend that you continue to perform regular breast self-examination and physical examination and then promptly contact your physician of any concerns or changes. Adenosis and dense breasts may obscure an underlying neoplasm. Assessment: BI-RADS/ACR category 2 mammogram. Benign Findings. Recommendation Routine screening mammogram of both breasts in 1 year. Electronically Signed By: Alfonso Price DO 10/16/20 [id number]
== END ==
LOC: M WHC 10:34
PROVIDERS: ATTEND Family Medicine
DX: Z12.31 Encounter for screening mammogram for malignant neoplasm of breast (principal); Z80.3 Family history of malignant neoplasm of breast

== ENCOUNTER 2020-11-27 10:50 | Emergency (ER) | payer MEDICARE ==
[~2020-11-27] VITALS: Ht 162.6 cm; Wt 97.2 kg
[~2020-11-27 10:50] MED LIST changes: -MAGN400T3 PO; +MAGN400T33 PO; +VERA240T64 PO; -VERA240T71 PO
--- OUTSIDE RECORDS SUMMARY | 2020-11-27 11:01 | CCD ---
Author Author [facility] Organization [facility] Address Unknown Phone Unavailable Care Team Providers Care Land Planner Name Role Phone June Velásquez MD Unavailable Unavailable June Velásquez MD Unavailable Unavailable June Velásquez MD Unavailable Unavailable June Velásquez MD Unavailable Unavailable June Velásquez MD Unavailable Unavailable June Velásquez MD Unavailable Unavailable June Velásquez MD Unavailable Unavailable June Velásquez MD Unavailable Unavailable June Velásquez MD Unavailable Unavailable June Velásquez MD Unavailable Unavailable June Velásquez MD Unavailable Unavailable June Velásquez MD Unavailable Unavailable June Velásquez MD Unavailable Unavailable June Velásquez MD Unavailable Unavailable June Velásquez MD Unavailable Unavailable June Velásquez MD Unavailable Unavailable June Velásquez MD Unavailable Unavailable June Velásquez MD Unavailable Unavailable June Velásquez MD Unavailable Unavailable June Velásquez MD Unavailable Unavailable June Velásquez MD Unavailable Unavailable June Velásquez MD Unavailable Unavailable June Velásquez MD Unavailable Unavailable June Velásquez MD Unavailable Unavailable June Velásquez MD Unavailable Unavailable June Velásquez MD Unavailable Unavailable June Velásquez MD Unavailable Unavailable June Velásquez MD Unavailable Unavailable June Velásquez MD Unavailable Unavailable June Velásquez MD Unavailable Unavailable June Velásquez MD Unavailable Unavailable June Velásquez MD Unavailable Unavailable June Velásquez MD Unavailable Unavailable June Velásquez MD Unavailable Unavailable June Velásquez MD Unavailable Unavailable June Velásquez MD Unavailable Unavailable June Velásquez MD Unavailable Unavailable June Velásquez MD Unavailable Unavailable June Velásquez MD Unavailable Unavailable June Velásquez MD Unavailable Unavailable June Velásquez MD Unavailable Unavailable June Velásquez MD Unavailable Unavailable June Velásquez MD Unavailable Unavailable June Velásquez MD Unavailable Unavailable June Velásquez MD Unavailable Unavailable June Velásquez MD Unavailable Unavailable June Velásquez MD Unavailable Unavailable June Velásquez MD Unavailable Unavailable June Velásquez MD Unavailable Unavailable June Velásquez MD Unavailable Unavailable June Velásquez MD Unavailable Unavailable June Velásquez MD Unavailable Unavailable June Velásquez MD Unavailable Unavailable June Velásquez MD Unavailable Unavailable June Velásquez MD Unavailable Unavailable June Velásquez MD Unavailable Unavailable June Velásquez MD Unavailable Unavailable June Velásquez MD Unavailable Unavailable June Velásquez MD Unavailable Unavailable June Velásquez MD Unavailable Unavailable June Velásquez MD Unavailable Unavailable June Velásquez MD Unavailable Unavailable June Velásquez MD Unavailable Unavailable June Velásquez MD Unavailable Unavailable June Velásquez MD Unavailable Unavailable June Velásquez MD Unavailable Unavailable June Velásquez MD Unavailable Unavailable June Velásquez MD Unavailable Unavailable June Velásquez MD Unavailable Unavailable June Velásquez MD Unavailable Unavailable June Velásquez MD Unavailable Unavailable June Velásquez MD Unavailable Unavailable June Velásquez MD Unavailable Unavailable June Velásquez MD Unavailable Unavailable June Velásquez MD Unavailable Unavailable June Velásquez MD Unavailable Unavailable June Velásquez MD Unavailable Unavailable June Velásquez MD Unavailable Unavailable June Velásquez MD Unavailable Unavailable June Velásquez MD Unavailable Unavailable June Velásquez MD Unavailable Unavailable June Velásquez MD Unavailable Unavailable June Velásquez MD Unavailable Unavailable June Velásquez MD Unavailable Unavailable June Velásquez MD Unavailable Unavailable June Velásquez MD Unavailable Unavailable June Velásquez MD Unavailable Unavailable June Velásquez MD Unavailable Unavailable June Velásquez MD Unavailable Unavailable June Velásquez MD Unavailable Unavailable June Velásquez MD Unavailable Unavailable June Velásquez MD Unavailable Unavailable June Velásquez MD Unavailable Unavailable Radha-Centner, Christin Unavailable Unavailable Radha-Centner, Christin Unavailable Unavailable Radha-Centner, Christin Unavailable Unavailable Radha-Centner, Christin Unavailable Unavailable Radha-Centner, Christin Unavailable Unavailable Radha-Centner, Christin Unavailable Unavailable Radha-Centner, Christin Unavailable Unavailable Radha-Centner, Christin Unavailable Unavailable Radha-Centner, Christin Unavailable Unavailable Radha-Centner, Christin Unavailable Unavailable Radha-Centner, Christin Unavailable Unavailable Ali, Esperanza MD Unavailable Unavailable Ali, Esperanza MD Unavailable Unavailable Ali, Esperanza MD Unavailable Unavailable Ali, Esperanza MD Unavailable Unavailable Ali, Esperanza MD Unavailable Unavailable Ali, Esperanza MD Unavailable Unavailable Ali, Esperanza MD Unavailable Unavailable Ali, Esperanza MD Unavailable Unavailable Ali, Esperanza MD Unavailable Unavailable Ali, Esperanza MD Unavailable Unavailable Ali, Esperanza MD Unavailable Unavailable Ali, Esperanza MD Unavailable Unavailable Ali, Esperanza MD Unavailable Unavailable Ali, Esperanza MD Unavailable Unavailable Ali, Esperanza MD Unavailable Unavailable Ali, Esperanza MD Unavailable Unavailable Ali, Esperanza MD Unavailable Unavailable Ali, Esperanza MD Unavailable Unavailable Ali, Esperanza MD Unavailable Unavailable Ali, Esperanza MD Unavailable Unavailable Ali, Esperanza MD Unavailable Unavailable Ali, Esperanza MD Unavailable Unavailable Ali, Esperanza MD Unavailable Unavailable Ali, Esperanza MD Unavailable Unavailable Ali, Esperanza MD Unavailable Unavailable Ali, Esperanza MD Unavailable Unavailable Ali, Esperanza MD Unavailable Unavailable Ali, Esperanza MD Unavailable Unavailable Ali, Esperanza MD Unavailable Unavailable Ali, Esperanza MD Unavailable Unavailable Ali, Esperanza MD Unavailable Unavailable Ali, Esperanza MD Unavailable Unavailable Ali, Esperanza MD Unavailable Unavailable Ali, Esperanza MD Unavailable Unavailable Ali, Esperanza MD Unavailable Unavailable Ali, Esperanza MD Unavailable Unavailable Ali, Esperanza MD Unavailable Unavailable Ali, Esperanza MD Unavailable Unavailable Ali, Esperanza MD Unavailable Unavailable Ali, Esperanza MD Unavailable Unavailable Ali, Esperanza MD Unavailable Unavailable Ali, Esperanza MD Unavailable Unavailable Ali, Esperanza MD Unavailable Unavailable Ali, Esperanza MD Unavailable Unavailable Ali, Esperanza MD Unavailable Unavailable Ali, Esperanza MD Unavailable Unavailable Ali, Esperanza MD Unavailable Unavailable Ali, Esperanza MD Unavailable Unavailable Ali, Esperanza MD Unavailable Unavailable Ali, Esperanza MD Unavailable Unavailable Re-disclosure Warning The records that you are about to access may contain information from federally-assisted alcohol or drug abuse programs. If such information is present, then the following federally mandated warning applies: This information has been disclosed to you from records protected by federal confidentiality rules (42 CFR part 2). The federal rules prohibit you from making any further disclosure of this information unless further disclosure is expressly permitted by the written consent of the person to whom it pertains or as otherwise permitted by 42 CFR part 2. A general authorization for the release of medical or other information is NOT sufficient for this purpose. The Federal rules restrict any use of the information to criminally investigate or prosecute any alcohol or drug abuse patient.The records that you are about to access may contain highly sensitive health information, the redisclosure of which is protected by Article 27-F of the [facility] Public Health law. If you continue you may have access to information: Regarding HIV / AIDS; Provided by facilities licensed or operated by the [facility] Office of Mental Health; or Provided by the [facility] Office for People With Developmental Disabilities. If such information is present, then the following [facility] mandated warning applies: This information has been disclosed to you from confidential records which are protected by state law. State law prohibits you from making any further disclosure of this information without the specific written consent of the person to whom it pertains, or as otherwise permitted by law. Any unauthorized further disclosure in violation of state law may result in a fine or alf sentence or both. A general authorization for the release of medical or other information is NOT sufficient authorization for further disc losure. Allergies and Adverse Reactions Type Description Substance Reaction Status Data Source(s ) Allergy to substance Allergy to substance Allergy to substance [facility] ([facility]) Allergy to substance Allergy to substance Allergy to substance [place] ([facility]) Family History Family Member Name Family Member Gender Family Member Status Date o f Status Description Data Source(s) Unknown Female Problem [facility] ([facility]) Encounters Encounter Providers Location Date Indications Data Source(s ) Outpatient Attender: Esperanza Lui MD Main office - [place] 07/08/2020 12:30:00 PM EDT [facility] ([facility]) Josue Velásquez MD: [address] [place] [address], Ph. Attender: Josue Velásquez MD [facility] Medical 05/04/2020 12:00:00 AM EDT [facility] ([facility]) RASHAD HicksC: [address] [place] [address], Ph. Attender: Christin Rdz [facility] Medical 04/06/2020 12:00:00 AM EST [facility] ([facility]) Christin Garcia, RPA-C: [address] [facility] [address], [place] [address], Ph. Attender: Christin ALBA - [facility] Medical 04/06/2020 12:00:00 AM EST [facility] ([facility]) Office Visit Attender: Esperanza Lui MD Main office - [place] 02/05/2020 10:30:00 AM EST [facility] ([facility] Immunizations Vaccine Date Status Description Data Source(s) COVID-19, mRNA, LNP-S, PF, 100 mcg/0.5 mL dose 05/04/2020 05 :11:10 PM EDT completed .5 mL [place] ([facility]) COVID-19 VACCINE Moderna 05/04/2020 12:00:00 AM EDT completed [facility] Vaccine Series Complete: YESThis Data wa s Submitted to [facility] Via [facility]. COVID-19, mRNA, LNP-S, PF, 100 mcg/0.5 mL dose 04/06/2020 09 :16:02 PM EST completed .5 mL [facility] ([facility]) COVID-19, mRNA, LNP-S, PF, 100 mcg/0.5 mL dose 04/06/2020 09 :16:02 PM EST completed .5 mL [place] ([facility]) COVID-19 VACCINE Moderna 04/06/2020 12:00:00 AM EST completed [place] Vaccine Series Complete: NOThis Data was Submitted to [facility] Via [facility]. INFLUENZA VACCINE QUADRIVALENT 2019- (65 YR UP)/MF59 C.1/PF 10/17/2019 12:00:00 AM EDT completed [facility] Medications Medication Brand Name Start Date Product Form Dose Route Admi nistrative Instructions Pharmacy Instructions Status Indications Reaction Description Data Source(s) 60 mcg (15 mcg x 4)/0.5 mL 10/16/2020 12:00:00 AM EDT syring e 0 INJECT INTRAMUSCULARLY DIRECTED INJECT INTRAMUSCULARLY DIRECTED SOLD: 10/16/2020 [facility] Insurance Providers Payer name Policy type / Coverage type Policy ID Covered green party ID Covered green party's relationship to luis Policy Luis Plan Information [employer] U [id number] Self [id number] [employer] BLUE PPO G [id number] Self [id number] [employer] (pr) Commercial [id number] Self [id number] [employer] (pr) Commercial [id number] Self [id number] [employer] (pr) Commercial [id number] Self [employer]IC[employer] BLUE PPO G [id number] Self [id number] [facility] FEDERAL EMPLOYEE PROGRAM [id number] SP [id number] [facility] FEDERAL EMPLOYEE PROGRAM [id number] SP [id number] [employer] BCBS B [id number] S [id number] [employer] [id number] SP [id number] [employer] PPO O [id number] S [id number] WELLCARE [id number] SP [id number] [employer] O [id number] S [id number] MEDICARE [id number] SP [id number] MEDICARE BLUE PPO [id number] SP [id number] [employer] B [id number] S [id number] MEDICARE [id number] SP [id number] A MEDICARE BLUE PPO [id number] SP [id number] Problems, Conditions, and Diagnoses No Information Surgeries/Procedures No Information Results No Information Social History No Information
--- NOTE | 2020-11-27 11:48 | REP ---
INDICATION: fall/pain with respiration COMPARISON: None. TECHNIQUE: PA/Lateral FINDINGS: Lungs: Clear, no infiltrate. Heart: Normal in size. Mediastinum: Mediastinal silhouette unremarkable. Pleural angles: Unremarkable.. Bones and soft tissues: There are mild degenerative changes of the spine without compression deformity. There is mild elevation of the right hemidiaphragm. IMPRESSION: No acute pulmonary disease. <Electronically signed by Marco Terrell > 11/27/20 1140
[2020-11-27] MEDS ORDERED: NORCO, ANEXSIA 5/325MG TABLET (HYDROcodone/ACETAMINOPHEN) PO ONE (14:45)
--- OUTSIDE RECORDS SUMMARY | 2020-11-27 14:52 | CCD ---
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 If you continue you may have access to information: Regarding HIV / AIDS; Provided by facilities licensed or operated by the [facility] Office of Mental Health; or Provided by the [facility] Office for People With Developmental Disabilities. If such information is present, then the following [facility] mandated warning applies: This information has [...] law may result in a fine or residential sentence or both. A general authorization for the release of medical or other information is NOT sufficient authorization for further disc losure. Allergies and Adverse Reactions Type Description Substance Reaction Status Data Source(s ) Allergy to substance Allergy to substance Allergy to substance [facility] ([facility]) Allergy to substance Allergy to substance Allergy to substance [place] ([facility]) Family History Family Member Name Family Member Gender Family Member Status Date o f Status Description Data Source(s) Unknown Female Problem [facility] ([facility]) Encounters Encounter Providers Location Date Indications Data Source(s ) Outpatient Attender: Esperanza Lui MD Main office - [place] 07/08/2020 12:30:00 PM EDT [facility] ([facility]) Josue Velásquez MD: [address] [place] [address], Ph. Attender: Josue Velásquez MD [facility] Medical 05/04/2020 12:00:00 AM EDT [facility] ([facility]) RASHAD HicksC: [address] [place] [address], Ph. Attender: Christin Rdz [facility] Medical 04/06/2020 12:00:00 AM EST [facility] ([facility]) Christin Garcia, RPA-C: [address] [facility], [place] [address], Ph. Attender: Christin ALBA - [facility] Medical 04/06/2020 12:00:00 AM EST [facility] ([facility]) Office Visit Attender: Esperanza Lui MD Main office - [place] 02/05/2020 10:30:00 AM EST [facility] ([facility]) Immunizations Vaccine Date Status Description Data Source(s) COVID-19, mRNA, LNP-S, PF, 100 mcg/0.5 mL dose 05/04/2020 05 :11:10 PM EDT completed .5 mL [place] ([facility]) COVID-19 VACCINE Moderna 05/04/2020 12:00:00 AM EDT completed [facility] Vaccine Series Complete: YESThis Data wa s Submitted to [facility]. COVID-19, mRNA, LNP-S, PF, 100 mcg/0.5 mL dose 04/06/2020 09 :16:02 PM EST completed .5 mL [facility] ([facility]) COVID-19, mRNA, LNP-S, PF, 100 mcg/0.5 mL dose 04/06/2020 09 :16:02 PM EST completed .5 mL [place] ([facility]) COVID-19 VACCINE Moderna 04/06/2020 12:00:00 AM EST completed [place] Vaccine Series Complete: NOThis Data was Submitted to [facility]. INFLUENZA VACCINE QUADRIVALENT 2019- (65 YR UP)/[id number] [...] type / Coverage type Policy ID Covered republican ID Covered republican's relationship to luis Policy Luis Plan Information [employer]OM[employer] U [id number] Self [id number] [employer] BLUE PPO G [id number] Self [id number] [employer] (pr) Commercial [id number] Self [id number] [employer] (pr) Commercial [id number] Self [id number] [place] (pr) Commercial [id number] Self [employer]ICARE BLUE PPO G [id number] Self [id number] [facility] FEDERAL EMPLOYEE PROGRAM [id number] SP [id number] [facility] FED[employer]AL EMPLOYEE PROGRAM [id number] SP [id number] [employer] BCBS B [id number] S [id number] [id number] [employer] [id number] SP [id number] [employer] PPO O [id number] S [id number] WELLCARE [id number] SP [id number] O [id number] S [id number] MEDICARE [id number] SP [id number] MEDICARE BLUE PPO [id number] SP [id number] [employer] BCBS B [id number] S [id number] [id number] MEDICARE [id number] SP [id number] A MEDICARE BLUE PPO [id number] SP [id number] Problems, Conditions, and Diagnoses No Information Surgeries/Procedures No Information Results No Information Social History No Information
--- NOTE | 2020-11-27 15:45 | REP ---
INDICATION: pain. COMPARISON: Chest radiograph today. TECHNIQUE: Four views right ribs. FINDINGS: There is no right rib fracture or bone lesion. IMPRESSION: No radiographic evidence of right rib fracture. <Electronically signed by Marco Terrell > 11/27/20 [id number]
--- NOTE | 2020-11-27 17:09 | REP ---
INDICATION: ruq pain. COMPARISON: 03/02/2016. TECHNIQUE: Real-time sonographic evaluation of right upper quadrant performed. FINDINGS: There has been a prior cholecystectomy.. There is no intrahepatic or extrahepatic biliary dilatation, common bile duct measures 11 mm in maximum diameter. Is upper limits of normal. There is diffuse fibrofatty infiltration of the liver with no gross mass. The visualized portions of the pancreas are grossly unremarkable, not well seen due to body habitus and bowel gas. The right kidney demonstrates no hydronephrosis, with a normal size of 10.5 cm in length. Lower pole the right kidney is not well visualized.No free fluid is seen. IMPRESSION: Limited exam due to bowel gas and body habitus. Prior cholecystectomy. Common bile duct upper limits of normal at 11 mm. Diffuse fibrofatty infiltration of the liver. No free fluid. <Electronically signed by Marco Terrell > 11/27/20 [id number]
[2020-11-27 18:37] LABS: BASO % 0.3 % (0.0-1.0); EOS # 0.1 10^3/uL (0.0-0.5); EOS % 0.9 % (0.0-3.0); HEMATOCRIT 41.3 % (36.0-47.0); HEMOGLOBIN 13.6 g/dl (12.0-15.5); LYMPH % 20.7 % (24.0-44.0); MEAN CORPUSCULAR HEMOGLOBIN 31.1 pg (27.0-33.0); MEAN CORPUSCULAR HGB CONC 32.9 g/dl (32.0-36.5); MEAN CORPUSCULAR VOLUME 94.5 fl (80.0-96.0); MONO # 0.7 10^3/uL (0.0-0.8); MONO % 7.2 % (2.0-8.0); NEUTROPHILS # 6.6 10^3/uL (1.5-8.5); NEUTROPHILS % 70.5 % (36.0-66.0); PLATELET COUNT, AUTOMATED 313 10^3/uL (150-450); RED BLOOD COUNT 4.37 10^6/uL (4.00-5.40); WHITE BLOOD COUNT 9.4 10^3/uL (4.0-10.0)
[2020-11-27 18:53] LABS: ALBUMIN 3.4 GM/DL (3.2-5.2); BILIRUBIN,DIRECT 0.2 MG/DL (0.0-0.2); BILIRUBIN,TOTAL 0.7 MG/DL (0.2-1.0); TOTAL PROTEIN 7.7 GM/DL (6.4-8.2)
[2020-11-27 18:57] LABS: BILIRUBIN, URINE MANUAL NEGATIVE (NEGATIVE); GLUCOSE, URINE (UA) MANUAL NEGATIVE (NEGATIVE); KETONE, URINE MANUAL NEGATIVE (NEGATIVE); UROBILINOGEN, URINE MANUAL NORMAL (NORMAL)
[2020-11-27 19:06] LABS: BACTERIA, URINE SMALL AMOUNT; MUCUS, URINE SMALL AMOUNT (NEGATIVE); RBC, URINE NONE SEEN /hpf (0-3); SQUAMOUS EPITHELIAL CELL URINE LARGE AMOUNT /hpf (SMALL AMT)
[2020-11-27 19:07] LABS: HYALINE CAST, URINE 0-1 /lpf (0-1)
[2020-11-27] MEDS ORDERED: CYCL5TAB PO (19:15)
[2020-11-27] MEDS ORDERED: NAPR500T6 PO (19:15)
[2020-11-27 19:38] VITALS: BP 141/64
== END 2020-11-27 19:39 | disposition home or self-care (01) ==
LOC: M ED 10:50
DX: R10.9 Unspecified abdominal pain (principal); I10 Essential (primary) hypertension; E78.5 Hyperlipidemia, unspecified; G43.909 Migraine, unspecified, not intractable, without status migrainosus; G20 Parkinson's disease; E03.9 Hypothyroidism, unspecified; K57.32 Diverticulitis of large intestine without perforation or abscess without bleeding; Z88.0 Allergy status to penicillin; Z79.899 Other long term (current) drug therapy

== ENCOUNTER → 2020-12-16 | Outpatient (CLI) | payer MEDICARE ==
[~2020-12-16] MED LIST changes: +CYCL5TAB PO; +NAPR500T6 PO
[2020-12-16 16:37] LABS: HEMATOCRIT 43.1 % (36.0-47.0); HEMOGLOBIN 13.5 g/dl (12.0-15.5); MEAN CORPUSCULAR HEMOGLOBIN 30.4 pg (27.0-33.0); MEAN CORPUSCULAR HGB CONC 31.3 g/dl (32.0-36.5); MEAN CORPUSCULAR VOLUME 97.1 fl (80.0-96.0); PLATELET COUNT, AUTOMATED 302 10^3/uL (150-450); RED BLOOD COUNT 4.44 10^6/uL (4.00-5.40); WHITE BLOOD COUNT 8.5 10^3/uL (4.0-10.0)
[2020-12-16 17:14] LABS: ALBUMIN 3.5 GM/DL (3.2-5.2); BILIRUBIN,TOTAL 0.4 MG/DL (0.2-1.0); CALCIUM LEVEL 9.5 MG/DL (8.8-10.2); CHOLESTEROL RISK RATIO 3.54 (<5); CREATININE FOR GFR 0.99 MG/DL (0.55-1.30); FREE T3 2.1 PG/ML (2.2-4.0); FREE T4 1.14 NG/DL (0.76-1.46); GLOMERULAR FILTRATION RATE 58.5 (>39); PERCENT SATURATION 41.5 % (13.2-45.0); POTASSIUM SERUM 3.8 MEQ/L (3.5-5.1); THYROID STIMULATING HORMONE 3.52 uIU/ML (0.358-3.740); TOTAL 25(OH) VITAMIN D 46.7 NG/ML (30.0-100.0); TOTAL PROTEIN 7.6 GM/DL (6.4-8.2)
== END ==
LOC: M WUC 11:27
PROVIDERS: ATTEND Family Medicine
DX: E55.9 Vitamin D deficiency, unspecified (principal); D64.9 Anemia, unspecified; E03.9 Hypothyroidism, unspecified; I10 Essential (primary) hypertension; Z79.899 Other long term (current) drug therapy

== ENCOUNTER → 2021-04-03 | Outpatient (CLI) | payer MEDICARE ==
[~2021-04-03] MED LIST changes: +POTA-149 PO; -POTA10TA16 PO
== END ==
LOC: M LABSMTC 09:19
PROVIDERS: ATTEND Anesthesiology
DX: Z01.812 Encounter for preprocedural laboratory examination (principal); Z20.822 Contact with and (suspected) exposure to COVID-19

== ENCOUNTER 2021-04-08 09:55 | Day surgery (SDC) | payer MEDICARE ==
[~2021-04-08] VITALS: Ht 162.6 cm; Wt 79.4 kg
[~2021-04-08 09:55] MED LIST changes: +NS 1,000 ML IV ONE
[2021-04-08] MEDS ORDERED: LIDOCAINE 2% 100MG/5ML SDV (FOR ANES.) As Ordered ONE (10:26)
[2021-04-08] MEDS ORDERED: propofoL 200 MG/20 ML VIAL As Ordered ONE (10:27)
[2021-04-08 11:25] VITALS: BP 135/74
== END 2021-04-08 11:33 | disposition home or self-care (01) ==
LOC: M OPP 09:55
PROVIDERS: ATTEND Surgery
DX: Z12.11 Encounter for screening for malignant neoplasm of colon (principal); Z80.0 Family history of malignant neoplasm of digestive organs; K57.30 Diverticulosis of large intestine without perforation or abscess without bleeding; G20 Parkinson's disease; Z90.89 Acquired absence of other organs; Z79.82 Long term (current) use of aspirin; Z79.899 Other long term (current) drug therapy; Z88.0 Allergy status to penicillin

== ENCOUNTER → 2021-10-18 | Outpatient (CLI) | payer MEDICARE ==
[~2021-10-18] MED LIST changes: -NS 1,000 ML IV ONE
[2021-10-18 13:30] LABS: HEMATOCRIT 43.5 % (36.0-47.0); HEMOGLOBIN 13.9 g/dl (12.0-15.5); MEAN CORPUSCULAR HEMOGLOBIN 30.5 pg (27.0-33.0); MEAN CORPUSCULAR VOLUME 95.4 fl (80.0-96.0); PLATELET COUNT, AUTOMATED 271 10^3/uL (150-450); RED BLOOD COUNT 4.56 10^6/uL (4.00-5.40); WHITE BLOOD COUNT 6.5 10^3/uL (4.0-10.0)
[2021-10-18 14:48] LABS: ALBUMIN 3.8 GM/DL (3.2-5.2); ALT/SGPT 13 U/L (12-78); BILIRUBIN,TOTAL 0.6 MG/DL (0.2-1.0); BLOOD UREA NITROGEN 14 MG/DL (7-18); CALCIUM LEVEL 9.3 MG/DL (8.8-10.2); CARBON DIOXIDE LEVEL 33 MEQ/L (21-32); CHLORIDE LEVEL 104 MEQ/L (98-107); CREATININE FOR GFR 0.92 MG/DL (0.55-1.30); FREE T3 2.2 PG/ML (2.2-4.0); FREE T4 1.13 NG/DL (0.76-1.46); GLOMERULAR FILTRATION RATE > 60.0 (>39); GLUCOSE, FASTING 128 MG/DL (70-100); POTASSIUM SERUM 3.9 MEQ/L (3.5-5.1); SODIUM LEVEL 138 MEQ/L (136-145); TOTAL PROTEIN 7.6 GM/DL (6.4-8.2)
== END ==
LOC: M PLALAB 11:20
PROVIDERS: ATTEND Family Medicine
DX: E03.9 Hypothyroidism, unspecified (principal); I10 Essential (primary) hypertension; Z12.31 Encounter for screening mammogram for malignant neoplasm of breast

== ENCOUNTER → 2021-10-18 | Outpatient (CLI) | payer MEDICARE | LOC: M WHC 10:39 | PROVIDERS: ATTEND Family Medicine | DX: Z12.31 Encounter for screening mammogram for malignant neoplasm of breast (principal) ==

== ENCOUNTER → 2021-11-16 | Outpatient (CLI) | payer MEDICARE ==
[2021-11-17 10:19] LABS: BASO # 0.1 10^3/uL (0.0-0.2); EOS # 0.2 10^3/uL (0.0-0.5); EOS % 2.3 % (0.0-3.0); HEMATOCRIT 42.1 % (36.0-47.0); HEMOGLOBIN 13.3 g/dl (12.0-15.5); LYMPH # 1.5 10^3/uL (1.5-5.0); LYMPH % 21.8 % (24.0-44.0); MEAN CORPUSCULAR HEMOGLOBIN 30.6 pg (27.0-33.0); MEAN CORPUSCULAR HGB CONC 31.6 g/dl (32.0-36.5); MEAN CORPUSCULAR VOLUME 96.8 fl (80.0-96.0); MONO # 0.4 10^3/uL (0.0-0.8); MONO % 5.4 % (2.0-8.0); NEUTROPHILS # 4.9 10^3/uL (1.5-8.5); NEUTROPHILS % 69.2 % (36.0-66.0); PLATELET COUNT, AUTOMATED 294 10^3/uL (150-450); RED BLOOD COUNT 4.35 10^6/uL (4.00-5.40)
[2021-11-17 10:36] LABS: ALBUMIN 3.8 GM/DL (3.2-5.2); BILIRUBIN,TOTAL 0.7 MG/DL (0.2-1.0); C REACTIVE PROTEIN QUANTITATIV 0.44 MG/DL (0.00-0.30); CALCIUM LEVEL 8.9 MG/DL (8.8-10.2); CREATININE FOR GFR 1.03 MG/DL (0.55-1.30); GLOMERULAR FILTRATION RATE 55.8 (>39); POTASSIUM SERUM 5.2 MEQ/L (3.5-5.1); TOTAL PROTEIN 7.5 GM/DL (6.4-8.2)
[2021-11-17 10:41] LABS: ERYTHROCYTE SEDIMENTATION RATE 32 mm/hr (0-30)
[2021-11-17 11:30] LABS: TOTAL 25(OH) VITAMIN D 49.6 NG/ML (30.0-100.0)
== END ==
LOC: M WUC 14:25
PROVIDERS: ATTEND Psychiatry & Neurology Neurology
DX: M35.3 Polymyalgia rheumatica (principal); E53.8 Deficiency of other specified B group vitamins; E55.9 Vitamin D deficiency, unspecified; Z79.899 Other long term (current) drug therapy

== ENCOUNTER → 2021-11-22 | Outpatient (CLI) | payer MEDICARE | LOC: M WUC 09:46 | PROVIDERS: ATTEND Psychiatry & Neurology Neurology | DX: E53.8 Deficiency of other specified B group vitamins (principal); E55.9 Vitamin D deficiency, unspecified; G62.9 Polyneuropathy, unspecified ==

== ENCOUNTER → 2022-04-07 | Outpatient (CLI) | payer MEDICARE ==
[2022-04-07 14:50] LABS: BASO % 0.4 % (0.0-1.0); EOS # 0.2 10^3/uL (0.0-0.5); EOS % 1.7 % (0.0-3.0); HEMATOCRIT 41.7 % (36.0-47.0); HEMOGLOBIN 13.4 g/dl (12.0-15.5); LYMPH # 1.6 10^3/uL (1.5-5.0); MEAN CORPUSCULAR HEMOGLOBIN 31.2 pg (27.0-33.0); MEAN CORPUSCULAR HGB CONC 32.1 g/dl (32.0-36.5); MONO # 0.6 10^3/uL (0.0-0.8); MONO % 6.6 % (2.0-8.0); NEUTROPHILS % 73.9 % (36.0-66.0); PLATELET COUNT, AUTOMATED 251 10^3/uL (150-450); WHITE BLOOD COUNT 9.5 10^3/uL (4.0-10.0)
[2022-04-07 15:19] LABS: ALBUMIN 3.6 G/DL (3.2-5.2); ALKALINE PHOSPHATASE 98 U/L (46-116); ALT/SGPT 16 U/L (7.0-40); AST/SGOT 17 U/L (<34); BILIRUBIN,TOTAL 0.5 MG/DL (0.3-1.2); BLOOD UREA NITROGEN 18 MG/DL (9-23); CALCIUM LEVEL 9.2 MG/DL (8.3-10.6); CARBON DIOXIDE LEVEL 36 MMOL/L (20-31); CHLORIDE LEVEL 102 MMOL/L (98-107); GLOMERULAR FILTRATION RATE > 60.0 (>39); GLUCOSE, FASTING 182 MG/DL (74-106); POTASSIUM SERUM 3.7 MMOL/L (3.5-5.1); SODIUM LEVEL 143 MMOL/L (136-145); TOTAL PROTEIN 6.6 G/DL (5.7-8.2)
[2022-04-07 15:27] LABS: ERYTHROCYTE SEDIMENTATION RATE 42 mm/hr (0-30)
== END ==
LOC: M WUC 11:28
PROVIDERS: ATTEND Psychiatry & Neurology Neurology
DX: G20 Parkinson's disease (principal); M35.3 Polymyalgia rheumatica

== ENCOUNTER 2022-07-09 13:38 | Emergency (ER) | payer MEDICARE ==
[~2022-07-09] VITALS: Ht 162.6 cm; Wt 97.3 kg
[2022-07-09] MEDS ORDERED: LEVO88TA3 (14:05)
[2022-07-09] MEDS ORDERED: VERA120T67 (14:05)
[2022-07-09 15:25] LABS: BASO % 0.4 % (0.0-1.0); EOS # 0.2 10^3/uL (0.0-0.5); EOS % 2.3 % (0.0-3.0); HEMATOCRIT 39.3 % (36.0-47.0); HEMOGLOBIN 13.1 g/dl (12.0-15.5); LYMPH # 1.2 10^3/uL (1.5-5.0); LYMPH % 14.7 % (24.0-44.0); MEAN CORPUSCULAR HEMOGLOBIN 30.8 pg (27.0-33.0); MEAN CORPUSCULAR HGB CONC 33.3 g/dl (32.0-36.5); MEAN CORPUSCULAR VOLUME 92.3 fl (80.0-96.0); MONO # 0.4 10^3/uL (0.0-0.8); MONO % 5.5 % (2.0-8.0); NEUTROPHILS # 6.1 10^3/uL (1.5-8.5); NEUTROPHILS % 76.6 % (36.0-66.0); PLATELET COUNT, AUTOMATED 267 10^3/uL (150-450); RED BLOOD COUNT 4.26 10^6/uL (4.00-5.40)
[2022-07-09] MEDS ORDERED: diazePAM 2 MG TAB PO ONE (15:30)
[2022-07-09 15:51] LABS: ALBUMIN 3.8 G/DL (3.2-5.2); ALKALINE PHOSPHATASE 113 U/L (46-116); ALT/SGPT 14 U/L (7.0-40); AST/SGOT 20 U/L (<34); BILIRUBIN,TOTAL 0.5 MG/DL (0.3-1.2); BLOOD UREA NITROGEN 22 MG/DL (9-23); CALCIUM LEVEL 8.9 MG/DL (8.3-10.6); CARBON DIOXIDE LEVEL 31 MMOL/L (20-31); CHLORIDE LEVEL 104 MMOL/L (98-107); CREATININE FOR GFR 0.93 MG/DL (0.55-1.30); GLOMERULAR FILTRATION RATE > 60.0 (>39); GLUCOSE, FASTING 112 MG/DL (74-106); POTASSIUM SERUM 4.2 MMOL/L (3.5-5.1); SODIUM LEVEL 139 MMOL/L (136-145); TOTAL PROTEIN 6.8 G/DL (5.7-8.2)
[2022-07-09 16:55] VITALS: BP 154/72
== END 2022-07-09 17:04 | disposition home or self-care (01) ==
LOC: M ED 13:38
DX: S70.01XA Contusion of right hip, initial encounter (principal); W19.XXXA Unspecified fall, initial encounter; I10 Essential (primary) hypertension; E03.9 Hypothyroidism, unspecified; G20 Parkinson's disease; Z88.0 Allergy status to penicillin; Z79.811 Long term (current) use of aromatase inhibitors; Z79.810 Long term (current) use of selective estrogen receptor modulators (SERMs); Z79.899 Other long term (current) drug therapy

== ENCOUNTER → 2022-08-19 | Outpatient (CLI) | payer MEDICARE ==
[~2022-08-19] MED LIST changes: +LEVO88TA3; +VERA120T67
[2022-08-19 16:50] LABS: BASO # 0.1 10^3/uL (0.0-0.2); BASO % 0.8 % (0.0-1.0); EOS # 0.1 10^3/uL (0.0-0.5); EOS % 2.1 % (0.0-3.0); HEMATOCRIT 42.8 % (36.0-47.0); HEMOGLOBIN 13.5 g/dl (12.0-15.5); LYMPH # 1.9 10^3/uL (1.5-5.0); LYMPH % 28.7 % (24.0-44.0); MEAN CORPUSCULAR HEMOGLOBIN 29.9 pg (27.0-33.0); MEAN CORPUSCULAR HGB CONC 31.5 g/dl (32.0-36.5); MEAN CORPUSCULAR VOLUME 94.9 fl (80.0-96.0); MONO # 0.5 10^3/uL (0.0-0.8); NEUTROPHILS % 61.1 % (36.0-66.0); PLATELET COUNT, AUTOMATED 273 10^3/uL (150-450); RED BLOOD COUNT 4.51 10^6/uL (4.00-5.40); WHITE BLOOD COUNT 6.6 10^3/uL (4.0-10.0)
[2022-08-19 17:11] LABS: HEMOGLOBIN A1c 6.8 % (4.0-6.0); URIC ACID 5.7 MG/DL (3.1-7.8)
[2022-08-19 17:22] LABS: ALBUMIN 3.8 G/DL (3.2-5.2); ALKALINE PHOSPHATASE 123 U/L (46-116); ALT/SGPT 13 U/L (7.0-40); AST/SGOT 16 U/L (<34); BILIRUBIN,TOTAL 0.6 MG/DL (0.3-1.2); BLOOD UREA NITROGEN 18 MG/DL (9-23); CALCIUM LEVEL 9.4 MG/DL (8.3-10.6); CARBON DIOXIDE LEVEL 31 MMOL/L (20-31); CHLORIDE LEVEL 101 MMOL/L (98-107); CHOLESTEROL LEVEL 128 MG/DL (<200); CHOLESTEROL RISK RATIO 3.56 (<5); CREATININE FOR GFR 0.77 MG/DL (0.55-1.30); FREE T3 2.6 PG/ML (2.3-4.2); FREE T4 1.22 NG/DL (0.89-1.76); GLOMERULAR FILTRATION RATE > 60.0 (>39); GLUCOSE, FASTING 128 MG/DL (74-106); HDL CHOLESTEROL 35.9 MG/DL (>40); LDL CHOLESTEROL 58.5 MG/DL (<100); NON-HDL-C 92.1 MG/DL; POTASSIUM SERUM 3.9 MMOL/L (3.5-5.1); SODIUM LEVEL 137 MMOL/L (136-145); THYROID STIMULATING HORMONE 1.761 uIU/ML (0.55-4.78); TOTAL PROTEIN 6.9 G/DL (5.7-8.2); TRIGLYCERIDES LEVEL 168 MG/DL (<150)
== END ==
LOC: M WUC 10:21
PROVIDERS: ATTEND Family Medicine
DX: E03.9 Hypothyroidism, unspecified (principal); I10 Essential (primary) hypertension; M10.9 Gout, unspecified; R73.01 Impaired fasting glucose

== ENCOUNTER 2022-09-06 08:19 | Day surgery (SDC) | payer MEDICARE ==
[~2022-09-06] VITALS: Ht 162.6 cm; Wt 97.0 kg
[~2022-09-06 08:19] MED LIST changes: +BSS IRR 500ML/OMIDRIA 4ML IRR BAG (OR ONLY) As Ordered ONE; +CYCLOPENTOLATE 1% OPHTH SOLN 2ML BTL OD SCH; +EQL400CA9 PO; -LEVO88TA3; +LEVO88TA3 PO; +LIDOCAINE 1% SDV 5ML VIAL As Ordered ONE; +OFLOXACIN 0.3 % (OCUFLOX) OPTH SOL 5ML OD SCH; +PHENYLEPHRINE 2.5% OPHTH SOL 2ML OD SCH; +PROPARACAINE 0.5% OPHTH SOL 15ML OD ONE; +TOBRADEX OPHTH OINT 3.5 GM As Ordered ONE; +TROPICAMIDE 1% OPHTH SOLN 15ML OD SCH; -VERA120T67; +VERA120T67 PO; +VITA1CHW3 PO
[2022-09-06] MEDS ORDERED: MIDAZOLAM INJ 2MG/2ML VIAL As Ordered ONE (08:25)
[2022-09-06] MEDS ORDERED: fentaNYL 100 MCG/2 ML INJECTION As Ordered ONE (08:25)
[2022-09-06 10:50] VITALS: BP 136/65; TEMP 97.4; O2SAT 98
== END 2022-09-06 11:11 | disposition home or self-care (01) ==
LOC: M SDC 08:19
PROVIDERS: ATTEND Ophthalmology
DX: H25.11 Age-related nuclear cataract, right eye (principal); I10 Essential (primary) hypertension; E03.9 Hypothyroidism, unspecified; E05.90 Thyrotoxicosis, unspecified without thyrotoxic crisis or storm; E78.5 Hyperlipidemia, unspecified; K57.90 Diverticulosis of intestine, part unspecified, without perforation or abscess without bleeding; Z88.0 Allergy status to penicillin; F41.9 Anxiety disorder, unspecified; Z79.82 Long term (current) use of aspirin; Z79.899 Other long term (current) drug therapy
CPT/HCPCS: 66984; J1097; J2250; J3010; V2632

== ENCOUNTER 2022-10-04 06:31 | Day surgery (SDC) | payer MEDICARE ==
[~2022-10-04] VITALS: Ht 162.6 cm; Wt 96.3 kg
[~2022-10-04 06:31] MED LIST changes: -BSS IRR 500ML/OMIDRIA 4ML IRR BAG (OR ONLY) As Ordered ONE; -CYCLOPENTOLATE 1% OPHTH SOLN 2ML BTL OD SCH; +CYCLOPENTOLATE 1% OPHTH SOLN 2ML BTL OS SCH; -LIDOCAINE 1% SDV 5ML VIAL As Ordered ONE; -OFLOXACIN 0.3 % (OCUFLOX) OPTH SOL 5ML OD SCH; +OFLOXACIN 0.3 % (OCUFLOX) OPTH SOL 5ML OS SCH; -PHENYLEPHRINE 2.5% OPHTH SOL 2ML OD SCH; +PHENYLEPHRINE 2.5% OPHTH SOL 2ML OS SCH; -PROPARACAINE 0.5% OPHTH SOL 15ML OD ONE; +PROPARACAINE 0.5% OPHTH SOL 15ML OS ONE; -TOBRADEX OPHTH OINT 3.5 GM As Ordered ONE; -TROPICAMIDE 1% OPHTH SOLN 15ML OD SCH; +TROPICAMIDE 1% OPHTH SOLN 15ML OS SCH
[2022-10-04] MEDS ORDERED: LIDOCAINE 1% SDV 5ML VIAL As Ordered ONE (06:35)
[2022-10-04] MEDS ORDERED: TOBRADEX OPHTH OINT 3.5 GM As Ordered ONE (06:35)
[2022-10-04] MEDS ORDERED: BSS IRR 500ML/OMIDRIA 4ML IRR BAG (OR ONLY) As Ordered ONE (06:36)
[2022-10-04] MEDS ORDERED: MIDAZOLAM INJ 2MG/2ML VIAL As Ordered ONE (08:41)
[2022-10-04] MEDS ORDERED: LABETALOL 100MG/20ML VIAL As Ordered ONE (08:50)
[2022-10-04 09:06] VITALS: BP 128/64; TEMP 96.5; O2SAT 99
== END 2022-10-04 09:14 | disposition home or self-care (01) ==
LOC: M SDC 06:31
PROVIDERS: ATTEND Ophthalmology
DX: H25.12 Age-related nuclear cataract, left eye (principal); I10 Essential (primary) hypertension; E78.5 Hyperlipidemia, unspecified; E03.9 Hypothyroidism, unspecified; K57.92 Diverticulitis of intestine, part unspecified, without perforation or abscess without bleeding; M19.90 Unspecified osteoarthritis, unspecified site; F41.9 Anxiety disorder, unspecified; G20 Parkinson's disease; Z88.0 Allergy status to penicillin; Z79.899 Other long term (current) drug therapy; Z79.82 Long term (current) use of aspirin
CPT/HCPCS: 66984; J1097; J1920; J2250; V2632

== ENCOUNTER 2022-11-19 18:19 | Observation (INO) | payer MEDICARE ==
[~2022-11-19] VITALS: Ht 162.6 cm; Wt 97.0 kg
[~2022-11-19 18:19] MED LIST changes: -CYCLOPENTOLATE 1% OPHTH SOLN 2ML BTL OS SCH; -OFLOXACIN 0.3 % (OCUFLOX) OPTH SOL 5ML OS SCH; -PHENYLEPHRINE 2.5% OPHTH SOL 2ML OS SCH; -PROPARACAINE 0.5% OPHTH SOL 15ML OS ONE; -TROPICAMIDE 1% OPHTH SOLN 15ML OS SCH
[2022-11-19] MEDS ORDERED: ACETAMINOPHEN TAB 650MG DOSE (2X325MG) PO ONE (19:10)
[2022-11-19 19:37] LABS: BASO % 0.4 % (0.0-1.0); HEMATOCRIT 38.1 % (36.0-47.0); HEMOGLOBIN 12.8 g/dl (12.0-15.5); LYMPH # 0.9 10^3/uL (1.5-5.0); LYMPH % 10.9 % (24.0-44.0); MEAN CORPUSCULAR HEMOGLOBIN 30.5 pg (27.0-33.0); MEAN CORPUSCULAR HGB CONC 33.6 g/dl (32.0-36.5); MEAN CORPUSCULAR VOLUME 90.7 fl (80.0-96.0); MONO # 0.7 10^3/uL (0.0-0.8); MONO % 7.8 % (2.0-8.0); NEUTROPHILS # 6.7 10^3/uL (1.5-8.5); NEUTROPHILS % 80.4 % (36.0-66.0); PLATELET COUNT, AUTOMATED 239 10^3/uL (150-450); WHITE BLOOD COUNT 8.3 10^3/uL (4.0-10.0)
[2022-11-19 20:03] LABS: CK-MB VALUE MASS < 1.0 NG/ML (<3.6)
[2022-11-19 20:04] LABS: CPK CREATINE PHOSPHOKINASE 86 U/L (34-145); MB/CK RELATIVE INDEX 1.16 (< OR =4)
[2022-11-19 20:05] LABS: ALBUMIN 3.6 G/DL (3.2-5.2); ALKALINE PHOSPHATASE 92 U/L (46-116); ALT/SGPT < 9 U/L (7.0-40); AST/SGOT 21 U/L (<34); BILIRUBIN,DIRECT 0.3 MG/DL (<0.4); BILIRUBIN,TOTAL 0.7 MG/DL (0.3-1.2); BLOOD UREA NITROGEN 14 MG/DL (9-23); CALCIUM LEVEL 8.8 MG/DL (8.3-10.6); CARBON DIOXIDE LEVEL 32 MMOL/L (20-31); CHLORIDE LEVEL 100 MMOL/L (98-107); CREATININE FOR GFR 0.75 MG/DL (0.55-1.30); GLOMERULAR FILTRATION RATE > 60.0 (>39); GLUCOSE, FASTING 127 MG/DL (74-106); POTASSIUM SERUM 3.5 MMOL/L (3.5-5.1); SODIUM LEVEL 138 MMOL/L (136-145); TOTAL PROTEIN 6.7 G/DL (5.7-8.2)
[2022-11-19 20:06] LABS: THYROID STIMULATING HORMONE 4.559 uIU/ML (0.55-4.78)
[2022-11-19] MEDS ORDERED: ACETAMINOPHEN TAB 650MG DOSE (2X325MG) PO PRN (22:05)
[2022-11-19] MEDS ORDERED: HOME MED LIST COMPLETE! XX SCH (22:15)
[2022-11-19] MEDS ORDERED: ISOVUE-370 76% 100ML VIAL As Ordered ONE ×2 (22:17→22:37)
[2022-11-19 22:24] LABS: ERYTHROCYTE SEDIMENTATION RATE 49 mm/hr (0-30)
[2022-11-19 22:34] LABS: PROCALCITONIN 0.07 ng/ml
[2022-11-19 23:50] VITALS: BP 138/68; TEMP 97.6; O2SAT 94
[2022-11-20 05:04] VITALS: BP 112/58; TEMP 98.2; O2SAT 95
[2022-11-20 05:58] LABS: HEMATOCRIT 37.2 % (36.0-47.0); HEMOGLOBIN 12.5 g/dl (12.0-15.5); MEAN CORPUSCULAR HEMOGLOBIN 30.3 pg (27.0-33.0); MEAN CORPUSCULAR HGB CONC 33.6 g/dl (32.0-36.5); MEAN CORPUSCULAR VOLUME 90.3 fl (80.0-96.0); PLATELET COUNT, AUTOMATED 224 10^3/uL (150-450); RED BLOOD COUNT 4.12 10^6/uL (4.00-5.40); WHITE BLOOD COUNT 5.2 10^3/uL (4.0-10.0)
[2022-11-20] MEDS ORDERED: LEVOTHYROXINE 88MCG TABLET (0.088 MG) PO SCH (06:00)
[2022-11-20 06:23] LABS: BLOOD UREA NITROGEN 15 MG/DL (9-23); CALCIUM LEVEL 8.3 MG/DL (8.3-10.6); CARBON DIOXIDE LEVEL 30 MMOL/L (20-31); CHLORIDE LEVEL 103 MMOL/L (98-107); GLOMERULAR FILTRATION RATE > 60.0 (>39); GLUCOSE, FASTING 137 MG/DL (74-106); MAGNESIUM LEVEL 1.6 MG/DL (1.8-2.4); POTASSIUM SERUM 3.6 MMOL/L (3.5-5.1); SODIUM LEVEL 140 MMOL/L (136-145)
[2022-11-20] MEDS ORDERED: ENOXAPARIN 40MG/0.4ML SYRINGE (J1650 PER 10MG) SC SCH (09:00)
[2022-11-20] MEDS ORDERED: MAGNESIUM OXIDE 400MG TAB (MAG-OX) PO SCH (09:00)
[2022-11-20] MEDS ORDERED: DULoxetine 30MG CAPSULE (CYMBALTA) PO SCH (09:00)
[2022-11-20] MEDS ORDERED: FUROSEMIDE 20 MG TAB PO SCH (09:00)
[2022-11-20] MEDS ORDERED: ATORVASTATIN 20 MG TAB PO SCH (09:00)
[2022-11-20] MEDS ORDERED: VERAPAMIL 120MG SR TAB PO SCH (09:00)
[2022-11-20] MEDS ORDERED: SINEMET 25-100 MG TAB PO SCH (09:00)
[2022-11-20] MEDS ORDERED: ASPIRIN 81MG ENTERIC TABLET PO SCH (09:00)
[2022-11-20] MEDS ORDERED: allopurinoL 100 MG TAB PO SCH (09:00)
[2022-11-20] MEDS ORDERED: DOCUSATE SODIUM 100MG CAPSULE PO SCH (09:00)
[2022-11-20] MEDS ORDERED: MAG SULF 1GM/100ML (MAG RUN) 1 GM in IV 1 EA IV ONE (09:00)
[2022-11-20 09:55] VITALS: BP 112/58
== END 2022-11-20 13:17 | disposition home or self-care (01) ==
LOC: EDBD 18:19 → M ED 18:19 → M ED INP 18:20 → M MSPAV 23:56
PROVIDERS: ADMIT Internal Medicine; ATTEND Student in an Organized Health Care Education/Training Program
DX: R50.2 Drug induced fever (principal); W19.XXXA Unspecified fall, initial encounter; R53.1 Weakness; G20.C Parkinsonism, unspecified; F41.9 Anxiety disorder, unspecified; F32.A Depression, unspecified; I10 Essential (primary) hypertension; E78.5 Hyperlipidemia, unspecified; E03.9 Hypothyroidism, unspecified; M10.9 Gout, unspecified; Z79.82 Long term (current) use of aspirin; Z79.899 Other long term (current) drug therapy; Z88.0 Allergy status to penicillin
CPT/HCPCS: 36415; 51701; 70450; 71045; 71260; 72125; 80048; 80076; 81001; 82550; 82553; 83605; 83735; 84145; 84443; 84484; 85025; 85027; 85652; 86140; 87040; 87077; 87486; 87581; 87633; 87798; 93005; 93041; 94760; 96372; 96374; 97161; 97530; 99285; G0378; J1650; J3475; Q9967

== ENCOUNTER → 2022-11-21 | Outpatient (CLI) | payer MEDICARE | LOC: M WHC 09:36 | PROVIDERS: ATTEND Family Medicine | DX: Z12.31 Encounter for screening mammogram for malignant neoplasm of breast (principal) ==

== ENCOUNTER → 2023-07-20 | Outpatient (CLI) | payer MEDICARE ==
[2023-07-20 12:27] LABS: BASO % 0.5 % (0.0-1.0); EOS # 0.1 10^3/uL (0.0-0.5); EOS % 1.6 % (0.0-3.0); HEMOGLOBIN 13.6 g/dl (12.0-15.5); MEAN CORPUSCULAR HEMOGLOBIN 30.2 pg (27.0-33.0); MEAN CORPUSCULAR HGB CONC 32.4 g/dl (32.0-36.5); MEAN CORPUSCULAR VOLUME 93.1 fl (80.0-96.0); MONO # 0.5 10^3/uL (0.0-0.8); MONO % 7.3 % (2.0-8.0); NEUTROPHILS # 4.7 10^3/uL (1.5-8.5); NEUTROPHILS % 63.2 % (36.0-66.0); PLATELET COUNT, AUTOMATED 295 10^3/uL (150-450); RED BLOOD COUNT 4.51 10^6/uL (4.00-5.40); WHITE BLOOD COUNT 7.4 10^3/uL (4.0-10.0)
[2023-07-20 12:47] LABS: URIC ACID 5.1 MG/DL (3.1-7.8)
[2023-07-20 12:50] LABS: ALBUMIN 3.8 G/DL (3.2-5.2); ALKALINE PHOSPHATASE 110 U/L (46-116); ALT/SGPT < 9 U/L (7.0-40); AST/SGOT 16 U/L (<34); BILIRUBIN,TOTAL 0.5 MG/DL (0.3-1.2); BLOOD UREA NITROGEN 12 MG/DL (9-23); CALCIUM LEVEL 9.7 MG/DL (8.3-10.6); CARBON DIOXIDE LEVEL 31 MMOL/L (20-31); CHLORIDE LEVEL 104 MMOL/L (98-107); CHOLESTEROL LEVEL 130 MG/DL (<200); CHOLESTEROL RISK RATIO 3.51 (<5); CREATININE FOR GFR 0.77 MG/DL (0.55-1.30); GLOMERULAR FILTRATION RATE > 60.0 (>39); GLUCOSE, FASTING 127 MG/DL (74-106); SODIUM LEVEL 143 MMOL/L (136-145); TOTAL PROTEIN 6.9 G/DL (5.7-8.2); TRIGLYCERIDES LEVEL 140 MG/DL (<150)
[2023-07-20 12:51] LABS: TOTAL 25(OH) VITAMIN D 54.4 NG/ML (20.0-100.0)
[2023-07-20 12:57] LABS: HEMOGLOBIN A1c 6.7 % (4.0-6.0)
== END ==
LOC: M WUC 10:10
PROVIDERS: ATTEND Family Medicine
DX: E55.9 Vitamin D deficiency, unspecified (principal); I10 Essential (primary) hypertension; R73.01 Impaired fasting glucose; M10.9 Gout, unspecified

== ENCOUNTER → 2023-09-13 | Outpatient (CLI) | payer MEDICARE ==
[2023-09-13 17:45] LABS: APPEARANCE, URINE HAZY (CLEAR); BACTERIA, URINE AUTO NEGATIVE (NEGATIVE); BILIRUBIN, URINE AUTO NEGATIVE (NEGATIVE); BLOOD, URINE BLOOD NEGATIVE (NEGATIVE); COLOR, URINE YELLOW (YELLOW); GLUCOSE, URINE (UA) AUTO NEGATIVE (NEGATIVE); KETONE, URINE AUTO TRACE mg/dL (NEGATIVE); LEUKOCYTE ESTERASE, URINE AUTO NEGATIVE (NEGATIVE); MUCUS, URINE SMALL (NEGATIVE); NITRITE, URINE AUTO NEGATIVE (NEGATIVE); PROTEIN, URINE AUTO NEGATIVE (NEGATIVE); RBC, URINE AUTO 1 /HPF (0-3); SPECIFIC GRAVITY URINE AUTO 1.015 (1.002-1.035); SQUAMOUS EPITHELIAL CELL UR AU 13 /HPF (0-6); UROBILINOGEN, URINE AUTO 0.2 mg/dL (0.0-2.0); WBC, URINE AUTO 2 /HPF (0-3)
[2023-09-13 17:52] LABS: ALBUMIN 4.1 G/DL (3.2-5.2); ALKALINE PHOSPHATASE 111 U/L (46-116); ALT/SGPT < 9 U/L (7.0-40); AST/SGOT 17 U/L (<34); BILIRUBIN,TOTAL 0.8 MG/DL (0.3-1.2); BLOOD UREA NITROGEN 20 MG/DL (9-23); CALCIUM LEVEL 9.3 MG/DL (8.3-10.6); CARBON DIOXIDE LEVEL 30 MMOL/L (20-31); CHLORIDE LEVEL 104 MMOL/L (98-107); CREATININE FOR GFR 0.93 MG/DL (0.55-1.30); GLOMERULAR FILTRATION RATE > 60.0 (>39); GLUCOSE, FASTING 96 MG/DL (74-106); POTASSIUM SERUM 4.2 MMOL/L (3.5-5.1); SODIUM LEVEL 138 MMOL/L (136-145); TOTAL PROTEIN 7.4 G/DL (5.7-8.2)
[2023-09-13 17:54] LABS: THYROID STIMULATING HORMONE 3.214 uIU/ML (0.55-4.78)
[2023-09-13 17:57] LABS: FREE T3 2.4 PG/ML (2.3-4.2)
== END ==
LOC: M WUC 11:34
PROVIDERS: ATTEND Family Medicine
DX: E03.9 Hypothyroidism, unspecified (principal); M54.9 Dorsalgia, unspecified

== ENCOUNTER 2023-10-22 16:09 | Emergency (ER) | payer MEDICARE ==
[~2023-10-22] VITALS: Ht 162.6 cm; Wt 91.1 kg
[2023-10-22] MEDS ORDERED: THERTAB52 PO (16:17)
[2023-10-22 17:23] LABS: BASO % 0.3 % (0.0-1.0); EOS # 0.1 10^3/uL (0.0-0.5); EOS % 1.3 % (0.0-3.0); HEMATOCRIT 39.8 % (36.0-47.0); HEMOGLOBIN 13.5 g/dl (12.0-15.5); LYMPH # 1.4 10^3/uL (1.5-5.0); LYMPH % 14.8 % (24.0-44.0); MEAN CORPUSCULAR HEMOGLOBIN 31.4 pg (27.0-33.0); MEAN CORPUSCULAR HGB CONC 33.9 g/dl (32.0-36.5); MEAN CORPUSCULAR VOLUME 92.6 fl (80.0-96.0); MONO # 0.6 10^3/uL (0.0-0.8); MONO % 6.1 % (2.0-8.0); NEUTROPHILS # 7.1 10^3/uL (1.5-8.5); PLATELET COUNT, AUTOMATED 262 10^3/uL (150-450); WHITE BLOOD COUNT 9.2 10^3/uL (4.0-10.0)
[2023-10-22 17:44] LABS: LIPASE 48 U/L (12-53)
[2023-10-22 17:46] LABS: ALBUMIN 3.9 G/DL (3.2-5.2); ALKALINE PHOSPHATASE 102 U/L (46-116); ALT/SGPT < 9 U/L (7.0-40); AST/SGOT 20 U/L (<34); BILIRUBIN,DIRECT 0.2 MG/DL (<0.4); BILIRUBIN,TOTAL 0.7 MG/DL (0.3-1.2)
[2023-10-22] MEDS ORDERED: ISOVUE-370 76% 100ML VIAL As Ordered ONE (18:57)
[2023-10-22] MEDS: MECLIZINE 25 MG TABLET PO ONE ×2 (20:12→21:04)
[2023-10-22 20:21] LABS: CK-MB VALUE MASS < 1.0 NG/ML (<3.6)
[2023-10-22 20:29] LABS: CPK CREATINE PHOSPHOKINASE 32 U/L (34-145); MB/CK RELATIVE INDEX 3.12 (< OR =4)
[2023-10-22] MEDS ORDERED: MECL-209 PO (20:43)
[2023-10-22 21:14] VITALS: BP 181/85; TEMP 97.8; O2SAT 98
== END 2023-10-22 21:18 | disposition home or self-care (01) ==
LOC: M ED 16:09
DX: H81.4 Vertigo of central origin (principal); I10 Essential (primary) hypertension; E78.5 Hyperlipidemia, unspecified; F32.A Depression, unspecified; E03.9 Hypothyroidism, unspecified; G56.00 Carpal tunnel syndrome, unspecified upper limb; E55.9 Vitamin D deficiency, unspecified; Z88.0 Allergy status to penicillin; Z79.82 Long term (current) use of aspirin; Z79.02 Long term (current) use of antithrombotics/antiplatelets; Z79.811 Long term (current) use of aromatase inhibitors; Z79.899 Other long term (current) drug therapy
CPT/HCPCS: 36415; 70450; 70496; 70498; 80047; 80076; 81001; 82550; 82553; 83690; 84484; 85025; 93005; 99284; Q9967

== ENCOUNTER → 2023-12-04 | Outpatient (CLI) | payer MEDICARE ==
[~2023-12-04] MED LIST changes: +MECL-209 PO; +NAPR-1405 PO; -NAPR500T6 PO; +THERTAB52 PO
== END ==
LOC: M WHC 07:55
PROVIDERS: ATTEND Family Medicine
DX: Z12.31 Encounter for screening mammogram for malignant neoplasm of breast (principal)

== ENCOUNTER → 2024-04-03 | Outpatient (CLI) | payer MEDICARE ==
[~2024-04-03] MED LIST changes: -CYCL5TAB PO; +CYCL5TAB4 PO
[2024-04-03 13:57] LABS: BASO # 0.1 10^3/uL (0.0-0.2); BASO % 0.7 % (0.0-1.0); EOS # 0.2 10^3/uL (0.0-0.5); EOS % 2.7 % (0.0-3.0); HEMATOCRIT 40.4 % (36.0-47.0); HEMOGLOBIN 13.1 g/dl (12.0-15.5); LYMPH # 2.2 10^3/uL (1.5-5.0); LYMPH % 29.5 % (24.0-44.0); MEAN CORPUSCULAR HEMOGLOBIN 30.5 pg (27.0-33.0); MEAN CORPUSCULAR HGB CONC 32.4 g/dl (32.0-36.5); MEAN CORPUSCULAR VOLUME 94.2 fl (80.0-96.0); MONO # 0.4 10^3/uL (0.0-0.8); MONO % 5.7 % (2.0-8.0); NEUTROPHILS # 4.5 10^3/uL (1.5-8.5); NEUTROPHILS % 61.1 % (36.0-66.0); PLATELET COUNT, AUTOMATED 281 10^3/uL (150-450); RED BLOOD COUNT 4.29 10^6/uL (4.00-5.40); WHITE BLOOD COUNT 7.3 10^3/uL (4.0-10.0)
[2024-04-03 14:23] LABS: URIC ACID 5.1 MG/DL (3.1-7.8)
[2024-04-03 14:26] LABS: ALBUMIN 3.8 G/DL (3.2-5.2); ALKALINE PHOSPHATASE 107 U/L (35-104); ALT/SGPT 14 U/L (7.0-40); AST/SGOT 15 U/L (<34); BILIRUBIN,TOTAL 0.6 MG/DL (0.3-1.2); BLOOD UREA NITROGEN 17 MG/DL (9-23); CALCIUM LEVEL 9.1 MG/DL (8.3-10.6); CARBON DIOXIDE LEVEL 33 MMOL/L (20-31); CHLORIDE LEVEL 104 MMOL/L (98-107); CHOLESTEROL LEVEL 148 MG/DL (<200); CHOLESTEROL RISK RATIO 3.54 (<5); CREATININE FOR GFR 0.71 MG/DL (0.55-1.30); GLOMERULAR FILTRATION RATE > 60.0 (>39); GLUCOSE, FASTING 114 MG/DL (74-106); HDL CHOLESTEROL 41.7 MG/DL (>40); LDL CHOLESTEROL 72.1 MG/DL (<100); NON-HDL-C 106.3 MG/DL; POTASSIUM SERUM 4.1 MMOL/L (3.5-5.1); SODIUM LEVEL 143 MMOL/L (136-145); TOTAL PROTEIN 7.1 G/DL (5.7-8.2); TRIGLYCERIDES LEVEL 171 MG/DL (<150)
[2024-04-03 14:29] LABS: FREE T4 1.35 NG/DL (0.89-1.76)
[2024-04-03 14:30] LABS: THYROID STIMULATING HORMONE 4.351 uIU/ML (0.55-4.78); TOTAL 25(OH) VITAMIN D 71.2 NG/ML (20.0-100.0)
[2024-04-03 14:32] LABS: FREE T3 2.9 PG/ML (2.3-4.2)
== END ==
LOC: M WUC 09:55
PROVIDERS: ATTEND Family Medicine
DX: M10.9 Gout, unspecified (principal); E55.9 Vitamin D deficiency, unspecified; E03.9 Hypothyroidism, unspecified; R73.01 Impaired fasting glucose

== ENCOUNTER 2024-10-10 14:13 | Emergency (ER) | payer MEDICARE ==
[~2024-10-10] VITALS: Ht 162.6 cm; Wt 81.8 kg
[2024-10-10] MEDS ORDERED: CYCL-707 (14:25)
[2024-10-10 15:30] LABS: BASO # 0.0 10^3/uL (0.0-0.2); BASO % 0.5 % (0.0-1.0); EOS # 0.1 10^3/uL (0.0-0.5); EOS % 0.6 % (0.0-3.0); LYMPH # 1.2 10^3/uL (1.5-5.0); LYMPH % 15.2 % (24.0-44.0); MONO # 0.4 10^3/uL (0.0-0.8); MONO % 4.8 % (2.0-8.0); NEUTROPHILS # 6.2 10^3/uL (1.5-8.5); NEUTROPHILS % 78.6 % (36.0-66.0); PLATELET COUNT, AUTOMATED 229 10^3/uL (150-450)
[2024-10-10 16:00] LABS: CALCIUM LEVEL 9.5 MG/DL (8.3-10.6); CARBON DIOXIDE LEVEL 32.0 MMOL/L (20-31); CHLORIDE LEVEL 101.0 MMOL/L (98-107); CREATININE FOR GFR 0.78 MG/DL (0.55-1.30); GLOMERULAR FILTRATION RATE 78.2 (>39); POTASSIUM SERUM 4.3 MMOL/L (3.5-5.1); SODIUM LEVEL 142.0 MMOL/L (136-145)
[2024-10-10 20:45] VITALS: BP 188/79
[2024-10-10] MEDS: hydrALAZINE 20 MG/ML 1 ML VIAL IV ONE (20:45)
[2024-10-10 20:55] VITALS: TEMP 97; O2SAT 97
[2024-10-10 20:58] VITALS: BP 185/72
== END 2024-10-10 21:11 | disposition home or self-care (01) ==
LOC: M ED 14:13
DX: H81.4 Vertigo of central origin (principal); I10 Essential (primary) hypertension; E03.9 Hypothyroidism, unspecified; G20.C Parkinsonism, unspecified; K57.30 Diverticulosis of large intestine without perforation or abscess without bleeding; M48.02 Spinal stenosis, cervical region; M50.21 Other cervical disc displacement, high cervical region; Z88.0 Allergy status to penicillin; Z79.1 Long term (current) use of non-steroidal anti-inflammatories (NSAID); Z79.82 Long term (current) use of aspirin; Z79.02 Long term (current) use of antithrombotics/antiplatelets; Z79.899 Other long term (current) drug therapy
CPT/HCPCS: 70450; 72125; 80047; 80048; 85025; 93005; 96374; 99285; J0360

== ENCOUNTER → 2024-12-06 | Outpatient (CLI) | payer MEDICARE ==
[~2024-12-06] MED LIST changes: +CYCL-707
== END ==
LOC: M WHC 13:52
PROVIDERS: ATTEND Family Medicine
DX: Z12.31 Encounter for screening mammogram for malignant neoplasm of breast (principal)